=== PATIENT | male | born 1945 | race Caucasian/White ===

== ENCOUNTER → 2021-04-19 10:19 | Outpatient (BNVA) | payer OTHER, SELFPAY | PROVIDERS: Family Provider Internal Medicine; PCP Family Medicine; Visit Provider Internal Medicine | DX: L40.9 Psoriasis, unspecified (principal); M24.549 Contracture, unspecified hand; M10.9 Gout, unspecified; Z96.652 Presence of left artificial knee joint; Z11.59 Encounter for screening for other viral diseases; Z11.1 Encounter for screening for respiratory tuberculosis; Z79.52 Long term (current) use of systemic steroids | CPT/HCPCS: 99204 ==

== ENCOUNTER 2021-04-21 12:39 | Outpatient (CLI) | payer OTHER, SELFPAY ==
--- NOTE | 2021-04-21 12:59 | CT_ITS ---
WS: [id number] CT NECK WITHOUT CONTRAST. HISTORY: NECK MASS POSTERIOR/NECK LEFT ANTERIOR MANDIBLE TECHNIQUE: Contiguous 5 mm axial images are performed through the neck without intravenous contrast. Sagittal and coronal reformats are also submitted. All CT scans at [facility] use at least on e of these dose optimization techniques: automated exposure control; mA and/or kV adjustment per daniel ent size (includes targeted exams where dose is matched to clinical indication); or iterative reconst ruction. CONTRAST: CONTRAST: None DLP: 546.07 mGy.cm COMPARISON: None available. Nasopharynx, oropharynx, hypopharynx and larynx are unremarkable. No soft tissue masses or abnormal e nhancement. Torus tubarius and fossa of Rosenmuller and parapharyngeal fat are normal. There are a few scattered cervical chain lymph nodes but they are not enlarged. The soft tissues bila terally along the cervical chains and over the posterior upper cervical spine and occiput demonstrate mild edema and stranding. No discrete mass. Thyroid gland and salivary glands are normally enhancing with no masses. Moderate spondylitic changes in the cervical spine. No fracture. Large RIGHT proximal foraminal osteo phyte at C2-3 is encroaching and deforming the RIGHT lateral thecal sac. There are additional osteoph ytes throughout the cervical spine resulting in multifocal areas of central and foraminal stenosis. Visualized portions of the skull base demonstrate no abnormalities. Orbits and globes are within norm al limits. No soft tissue masses. Small amount mucoperiosteal thickening in the RIGHT sphenoid sinus. No air-fluid levels. Mucous reten tion cyst in the RIGHT maxillary sinus. Chronic changes at the lung apices. Prior CABG. CT/CT neck wo con [id number] IMPRESSION: 1. No soft tissue mass or adenopathy within the neck on this unenhanced study. 2. There is diffuse mild soft tissue edema of the neck and posterior upper tho rax. 3. Prior CABG.
== END 2021-04-21 12:40 | disposition home or self-care (01) ==
LOC: RAD 12:48
PROVIDERS: PCP Family Medicine; Visit Provider Family Medicine
DX: R22.1 Localized swelling, mass and lump, neck (principal); Z95.1 Presence of aortocoronary bypass graft
CPT/HCPCS: 70490

== ENCOUNTER → 2021-06-07 14:41 | Outpatient (BNVA) | payer OTHER, SELFPAY | PROVIDERS: PCP Family Medicine; Visit Provider Internal Medicine | DX: L40.9 Psoriasis, unspecified (principal); M24.549 Contracture, unspecified hand; R60.9 Edema, unspecified; N18.9 Chronic kidney disease, unspecified; Z90.49 Acquired absence of other specified parts of digestive tract | CPT/HCPCS: 99214 ==

== ENCOUNTER → 2021-06-20 14:18 | Outpatient (BNVA) | payer OTHER, SELFPAY | PROVIDERS: PCP Family Medicine; Visit Provider Internal Medicine Cardiovascular Disease | DX: I11.0 Hypertensive heart disease with heart failure (principal); Z79.01 Long term (current) use of anticoagulants; E78.5 Hyperlipidemia, unspecified; I25.10 Atherosclerotic heart disease of native coronary artery without angina pectoris; I35.0 Nonrheumatic aortic (valve) stenosis | CPT/HCPCS: 99214; 99215 ==

== ENCOUNTER 2021-06-22 12:54 | Outpatient (CLI) | payer OTHER, SELFPAY ==
--- NOTE | 2021-06-22 13:02 | US_ITS ---
WS: [id number] ULTRASOUND THYROID TECHNIQUE: Ultrasound of the thyroid. CLINICAL INFORMATION: MASS R POSTERIOR NECK CLINICALLY PALPABLE COMPARISON: None. FINDINGS: Thyroid: Right and left thyroid lobes are normal in size for patient age with normal echotexture. No thyroid nodules are present. Mixed echogenicity solid lesion in the RIGHT upper neck measuring 1.9 x 1.3 x 2.1 cm. Recommend furth er evaluation with contrast-enhanced neck CT. Right thyroid lobe: 2.7 cm x 1.4 cm x 1.5 cm Left thyroid lobe: 2.3 cm x 1.2 cm x 1.5 cm. Isthmus: 2.0 mm. Cervical lymphadenopathy: None. US/US thyroid [id number] IMPRESSION: 1. Mixed echogenicity solid lesion in the RIGHT upper neck measuring 1.9 x 1.3 x 2.1 cm. This is indeterminant and Recommend further evaluation with contrast -enhanced neck CT. 2. Normal thyroid for patient age. No thyroid nodules.
== END 2021-06-22 12:55 | disposition home or self-care (01) ==
LOC: RAD 12:55
PROVIDERS: PCP Family Medicine; Visit Provider Family Medicine
DX: Z01.89 Encounter for other specified special examinations (principal); R22.1 Localized swelling, mass and lump, neck
CPT/HCPCS: 76536

== ENCOUNTER 2021-07-06 13:13 | Outpatient (CLI) | payer OTHER, SELFPAY ==
--- NOTE | 2021-07-06 13:24 | USCV_ITS ---
Becky, Stephenson Age: 75 Gender: M : 1945 Exam Date: 07/06/2021 14:15 Ordering Phys: Gretchen Ridley MD Technologist: DAVID Exam Location: [facility] [place] Indication: S/P CABG 2015; PRE-immunotherapy workup. BP: / HR: 63 Rhythm: Sinus Technical Quality: Adequate MEASUREMENTS (Male / Female) Normal Values 2D ECHO LV Diastolic Diameter PLAX 4.5 cm 4.2 - 5.9 / 3.9 - 5.3 cm LV Systolic Diameter PLAX 2.7 cm IVS Diastolic Thickness 1.8 cm 0.6 - 1.0 / 0.6 - 0.9 cm IVS Systolic Thickness 1.9 cm LVPW Diastolic Thickness 1.7 cm 0.6 - 1.0 / 0.6 - 0.9 cm LVPW Systolic Thickness 2.0 cm LVOT Diameter 2.2 cm LV Ejection Fraction 2D Teich 71.9 % LV Ejection Fraction MOD 2C 61.8 % LV Ejection Fraction 2C AL 61.5 % LA Diameter 5.7 cm LA Width 3.8 cm LA Height 6.1 cm RA Width 4.1 cm RA Height 4.7 cm Aorta at Sinotubular Diameter 3.2 cm M-MODE Aortic Annulus Diameter 3.6 cm LA Ao Ratio MM 1.6 MV E Point Septal Separation 0.7 cm DOPPLER AV Peak Velocity 177.0 cm/s LVOT Peak Velocity 108.0 cm/s AV Area Cont Eq vti 2.3 cm squared AV Area Cont Eq pk 2.4 cm squared MV Peak Velocity 124.0 cm/s MV Area PHT 3.9 cm squared Mitral E to A Ratio 1.3 MV E' Velocity 69.5 cm/s Mitral E to MV E' Ratio 17.5 Mitral E to LV E' Lateral Ratio 16.0 Mitral E to LV E' Septal Ratio 19.6 PV Peak Velocity 98.0 cm/s FINDINGS Left Ventricle Normal left ventricular size, systolic function and wall thickness, with no regional wall motion abnormalities. Grade II/IV diastolic dysfunction, moderately elevated filling pressures. Left ventricular ejection fraction is estimated at 55 %. Right Ventricle Normal right ventricular size and systolic function. Right Atrium Mildly increased right atrial size. Left Atrium Mildly increased left atrial size. Mitral Valve Structurally normal mitral valve. Moderate mitral valve regurgitation. Aortic Valve Thickened aortic valve. Mild aortic valve calcification. Aortic valve sclerosis without stenosis or regurgitation. Tricuspid Valve Structurally normal tricuspid valve. Trace tricuspid valve regurgitation. Pulmonic Valve Structurally normal pulmonic valve without significant stenosis. There is no pulmonic regurgitation. Pericardium Normal pericardium without effusion. Aorta Normal ascending aorta dimension. CONCLUSIONS Normal left ventricular size, systolic function and wall thickness, with no regional wall motion abnormalities. Grade II/IV diastolic dysfunction, moderately elevated filling pressures. Left ventricular ejection fraction is estimated at 55 %. Mildly increased right atrial size. Mildly increased left atrial size. Structurally normal mitral valve. Moderate mitral valve regurgitation. Thickened aortic valve. Mild aortic valve calcification. Aortic valve sclerosis without stenosis or regurgitation. Dr. Chente Vaz MD (Electronically Signed) Final Date: 06 July 2021 17:50 S
== END 2021-07-06 13:14 | disposition home or self-care (01) ==
LOC: RAD 13:15
PROVIDERS: PCP Family Medicine; Visit Provider Family Medicine
DX: Z95.1 Presence of aortocoronary bypass graft (principal); I35.8 Other nonrheumatic aortic valve disorders
CPT/HCPCS: 93306

== ENCOUNTER 2021-07-15 07:52 | Day surgery (SDC) | payer OTHER, MEDICARE, SELFPAY ==
[2021-07-13 13:22] VITALS: BMI 33.5
[2021-07-15 08:07] VITALS: BP 150/80; PULSE 67; RESP 18; TEMP 36.1; O2SAT 97
[2021-07-15] MEDS: sodium chloride 0.9% 1,000 ML 30 ML IV (08:29)
--- NOTE | 2021-07-15 08:57 | P.HP_ITS ---
Same Day Surgery H&P Indication for Procedure/HPI DATE OF PROCEDURE: July 15, 2021 CHIEF COMPLAINT/INDICATIONFOR SURGICAL PROCEDURE: colonoscopy PREOP DIAGNOSIS: diagnostic PLANNED PROCEDURE: Operation Date: 07/15/21 09:00 Proposed Procedures p Colonoscopy 88855/[id number](Not Applicable) - Vadim Washington MD Medications/Allergies* Home Medications Medication Instructions Recorded Confirmed Type aspirin 81 mg tablet,delayed 81 mg PO DAILY 10/12/20 07/15/21 History release (Adult Low Dose Aspirin) cholecalciferol (vitamin D3) 25 75 mcg PO DAILY cap 10/12/20 07/15/21 History mcg (1,000 unit) capsule cyanocobalamin (vitamin B-12) 1,000 mcg PO DAILY 10/12/20 07/15/21 History 1,000 mcg capsule pantoprazole 40 mg tablet,delayed 40 mg PO DAILY 10/12/20 07/15/21 History release alogliptin 6.25 mg tablet 6.25 mg PO DAILY 04/19/21 07/15/21 History capsaicin 0.075 % topical cream 1 applic TOPICAL PRN PRN 04/19/21 07/15/21 History carvedilol 25 mg tablet 12.5 mg PO BID tab 04/19/21 07/15/21 History clobetasol 0.05 % topical spray 1 applic TOPICAL PRN PRN 04/19/21 07/15/21 History (Clobex) diclofenac sodium 1 % topical gel 2 g TOPICAL PRN PRN 04/19/21 07/15/21 History (Arthritis Pain (diclofenac)) insulin NPH isoph U-100 human 100 60 unit SUBCUT QAM ml 04/19/21 07/15/21 History unit/mL (3 mL) subcutaneous pen (Novolin N Flexpen) vit A-ergocalciferol(D2)-vit E 1 applic TOPICAL PRN 04/19/21 07/15/21 History topical cream torsemide 20 mg tablet 40 mg PO DAILY tab 06/07/21 07/15/21 History allopurinol 100 mg tablet 150 mg PO DAILY tab 06/17/21 07/15/21 History atorvastatin 40 mg tablet (Lipitor) 40 mg PO DAILY tab 06/17/21 07/15/21 History ferrous gluconate 324 mg (37.5 mg 324 mg PO DAILY 06/17/21 07/15/21 History iron) tablet omega-3 fatty acids 1,000 mg 1,000 mg PO DAILY 06/17/21 07/15/21 History capsule (Fish Oil Concentrate) Allergies/Adverse Reactions Allergy/AdvReac Type Severity Reaction Status Date / Time sulfamethoxazole Allergy Mild Rash Verified 07/15/21 08:04 [From Bactrim] trimethoprim [From Bactrim] Allergy Mild Rash Verified 07/15/21 08:04 niacin Allergy Unknown Verified 07/15/21 08:04 Current Medications: Generic Name Dose Route Start Last Admin Trade Name Toya PRN Reason Stop Dose Admin Sodium Chloride 1,000 mls @ 30 mls/hr 07/15/21 08:00 07/15/21 08:29 Sodium Chloride 0.9% IV 07/16/21 07:59 30 mls/hr .Q24H MANI Administration Pertinent History/Comorbid Conditions* Medical History (Updated 06/20/21 @ 15:17 by Markell Matthews MD) Aortic cusp regurgitation Aortic regurgitation CAD (coronary artery disease) CKD (chronic kidney disease) stage 3, GFR 30-59 ml/min Controlled diabetes mellitus with diabetic nephropathy Diverticulosis Gout, unspecified Hyperlipidemia Hypertension Male circumcision Psoriasis Surgical History (Updated 06/20/21 @ 10:55 by Vadim Washington MD) History of back surgery History of bilateral knee replacement History of colonoscopy History of partial colectomy History of total left knee replacement had a partial prior to total Hx of CABG Hx of cholecystectomy Hx of rotator cuff surgery Right Family History (Updated 06/17/21 @ 14:51 by Michelle Asif RN) Diabetes Grandmother Mother Heart attack Father Hypertension Grandmother Mother Stroke Grandmother Denies family history of Rheumatoid arthritis Lupus Clotting disorder Hyperlipidemia Anesthesia complication Bleeding disorder Cancer Social History Smoking and tobacco status: never smoked Alcohol intake: never History of recent travel: No Pertinent Exam Findings alert, oriented x 3 and regular rate & rhythm Recommendations Surgery/Procedure today Coding Level of Care Code Acute [employer] for Parvez Aggarwal
--- NOTE | 2021-07-15 09:05 | P.ANESASSM_ITS ---
Pre-Anesthetic Assessment Height/Weight: Height 1.88 m Weight 118.388 kg Temp Pulse Resp BP Pulse Ox 97.0 F L 67 18 150/80 97 07/15/21 08:07 07/15/21 08:07 07/15/21 08:07 07/15/21 08:07 07/15/21 08:07 Preop Diagnosis: diagnostic Operation Date: 07/15/21 09:00 Proposed Procedures p Colonoscopy 25711/k63.5(Not Applicable) - Vadim Washington MD Familial anesthetic complications: none Was Beta Fatoumata taken within 24 hours: N/A Was Clonidine taken within 24 hours: N/A Last intake: Intake Last Liquid Date 07/14/21 Last Liquid Time 21:00 Last Solid Date 07/13/21 Last Solid Time 20:00 Social No alcohol and No tobacco Exam alert and oriented x 3 Airway Submandibular: within normal limits Cervical ROM: within normal limits Mallampati: Class II Dentition: partials History/ROS No significant history except as noted Pulmonary None reported CV/HEM Coronary Artery Disease, Hypertension and Murmur None reported Hepatic None reported GI None reported Metabolic Hyperlipidemia [facility] [place] None reported Neuropsych None reported Anesthetic Plan ASA status: 3 Anesthesia: Anesthesia Evaluation and MAC Risk of > 500 ml blood loss (7ml/kg in children): No Medications/Allergies Home Medications Medication Instructions Recorded Confirmed Last Taken Type aspirin 81 mg tablet,delayed 81 mg PO DAILY 10/12/20 07/15/21 07/14/21 History release (Adult Low Dose Aspirin) cholecalciferol (vitamin D3) 25 75 mcg PO DAILY cap 10/12/20 07/15/21 07/14/21 History mcg (1,000 unit) capsule cyanocobalamin (vitamin B-12) 1,000 mcg PO DAILY 10/12/20 07/15/21 07/14/21 History 1,000 mcg capsule pantoprazole 40 mg tablet,delayed 40 mg PO DAILY 10/12/20 07/15/21 07/14/21 History release alogliptin 6.25 mg tablet 6.25 mg PO DAILY 04/19/21 07/15/21 07/14/21 History capsaicin 0.075 % topical cream 1 applic TOPICAL PRN PRN 04/19/21 07/15/21 07/14/21 History carvedilol 25 mg tablet 12.5 mg PO BID tab 04/19/21 07/15/21 07/14/21 History clobetasol 0.05 % topical spray 1 applic TOPICAL PRN PRN 04/19/21 07/15/21 07/14/21 History (Clobex) diclofenac sodium 1 % topical gel 2 g TOPICAL PRN PRN 04/19/21 07/15/21 07/14/21 History (Arthritis Pain (diclofenac)) insulin NPH isoph U-100 human 100 60 unit SUBCUT QAM ml 04/19/21 07/15/21 07/14/21 History unit/mL (3 mL) subcutaneous pen (Novolin N Flexpen) prednisone 5 mg tablet See Rx Instructions PO DAILY #45 04/19/21 07/15/21 07/14/21 Rx tab vit A-ergocalciferol(D2)-vit E 1 applic TOPICAL PRN 04/19/21 07/15/21 07/14/21 History topical cream torsemide 20 mg tablet 40 mg PO DAILY tab 06/07/21 07/15/21 07/14/21 History allopurinol 100 mg tablet 150 mg PO DAILY tab 06/17/21 07/15/21 07/14/21 History atorvastatin 40 mg tablet (Lipitor) 40 mg PO DAILY tab 06/17/21 07/15/21 07/14/21 History ferrous gluconate 324 mg (37.5 mg 324 mg PO DAILY 06/17/21 07/15/21 07/14/21 History iron) tablet omega-3 fatty acids 1,000 mg 1,000 mg PO DAILY 06/17/21 07/15/21 07/14/21 History capsule (Fish Oil Concentrate) amlodipine 10 mg tablet 10 mg PO DAILY 90 Days #90 tab 06/20/21 07/15/21 07/15/21 Rx Allergies Allergy/AdvReac Type Severity Reaction Status Date / Time sulfamethoxazole Allergy Mild Rash Verified 07/15/21 08:04 [From Bactrim] trimethoprim [From Bactrim] Allergy Mild Rash Verified 07/15/21 08:04 niacin Allergy Unknown Verified 07/15/21 08:04 Current Medications Generic Name Dose Route Start Last Admin Trade Name Freq PRN Reason Stop Dose Admin Sodium Chloride 1,000 mls @ 30 mls/hr 07/15/21 08:00 07/15/21 08:29 Sodium Chloride 0.9% IV 07/16/21 07:59 30 mls/hr .Q24H MANI Administration PFSH Anesthesia Medical History Aortic cusp regurgitation Aortic regurgitation CAD (coronary artery disease) CKD (chronic kidney disease) stage 3, GFR 30-59 ml/min Controlled diabetes mellitus with diabetic nephropathy Diverticulosis Gout, unspecified Hyperlipidemia Hypertension Male circumcision Psoriasis Surgical History History of back surgery History of bilateral knee replacement History of colonoscopy History of partial colectomy History of total left knee replacement had a partial prior to total Hx of CABG Hx of cholecystectomy Hx of rotator cuff surgery Right Family History Grandmother Diabetes Stroke Hypertension Mother Diabetes Hypertension Father Heart attack Denies family history of Rheumatoid arthritis Lupus Clotting disorder Hyperlipidemia Anesthesia complication Bleeding disorder Cancer Social History Smoking and tobacco status: never smoked Alcohol intake: never History of recent travel: No Data Anesthesia Cardiac Studies: Echocardiogram 07/06/21
[2021-07-15 09:39] VITALS: BP 125/66; PULSE 60; RESP 18; TEMP 36.1; O2SAT 96
--- NOTE | 2021-07-15 09:39 | ANE.PACU2 ---
Inpatient post-anesthesia follow up: Airway intact: Yes Vital signs: Temperature 97.0 F Pulse Rate 67 Respiratory Rate 18 Blood Pressure 150/80 Pulse Oximetry 97 Oxygen Delivery Me thod Room Air Oxygen Flow Rate Fraction of Inspir ed Oxygen Hydration adequate: Yes Nausea and vomiting: No Pain level: 1 Mental status: Baseline
[2021-07-15 09:49] VITALS: BP 153/76; PULSE 68; RESP 18; O2SAT 95
== END 2021-07-15 10:21 | disposition home or self-care (01) ==
PROVIDERS: PCP Family Medicine; Visit Provider Surgery
PROC: 0DJD8ZZ Inspection of Lower Intestinal Tract, Via Natural or Artificial Opening Endoscopic (ICD-10-PCS; CPT 45378; principal; 2021-07-15 09:00)
DX: K63.5 Polyp of colon (principal); I25.10 Atherosclerotic heart disease of native coronary artery without angina pectoris; E11.40 Type 2 diabetes mellitus with diabetic neuropathy, unspecified; E78.5 Hyperlipidemia, unspecified; E11.22 Type 2 diabetes mellitus with diabetic chronic kidney disease; I12.9 Hypertensive chronic kidney disease with stage 1 through stage 4 chronic kidney disease, or unspecified chronic kidney disease; N18.30 Chronic kidney disease, stage 3 unspecified; Z95.1 Presence of aortocoronary bypass graft; K57.30 Diverticulosis of large intestine without perforation or abscess without bleeding; K64.8 Other hemorrhoids; D12.2 Benign neoplasm of ascending colon; I10 Essential (primary) hypertension; Z79.52 Long term (current) use of systemic steroids; Z79.4 Long term (current) use of insulin
CPT/HCPCS: 45380; 88305; J2704; J7030

== ENCOUNTER 2021-08-12 11:01 | Outpatient (CLI) | payer OTHER, SELFPAY ==
--- NOTE | 2021-08-12 11:09 | CT_ITS ---
WS: [id number] CT NECK TECHNIQUE: Noncontrast CT of the neck with coronal and sagittal reformatted images. CLINICAL INFORMATION: NECK MASS COMPARISON: CT neck April 21, 2021 DLP: 356.[address] scans at [facility] use at least one of these dose optimization techniques: automated e xposure control; mA and/or kV adjustment per patient size (includes targeted exams where dose is matc hed to clinical indication); or iterative reconstruction. FINDINGS: Area of interest marked with a BB marker. Area of palpable concern RIGHT retromastoid in the RIGHT suboccipital region. Induration in the under lying subcutaneous fat with ovoid lipoma measuring approximately 1.8 x 1.4 x 2.5 CM. Small amount of surrounding induration and inflammation. No solid soft tissue components. No other underlying abnorma lities in this region. Incidental sebaceous cysts in the LEFT suboccipital soft tissues. Mastoid air cells are well aerated. Paranasal sinuses are well aerated. Small retention cysts in the RIGHT maxillary sinuses. Retention cyst RIGHT sphenoid sinus. Partially visualized intracanal contents are normal for age. Cavernous car otid calcification. Normal posterior nasopharynx. Normal parapharyngeal fat. Normal palatine tonsils. No evidence of supr aglottic or glottic mass. Normal subglottic airway. Normal epiglottis and piriform sinuses. Normal th yroid tissue. Aortic calcification. Prior sternotomy. Submandibular glands are normal. Parotid glands are normal. No cervical lymphadenopathy. Moderate spo ndylitic changes cervical spine. CT/CT neck wo con [id number] IMPRESSION: 1. Deep to the palpable marker in the RIGHT suboccipital neck is a fatty atten uation lesion small amount of associated induration and inflammation. This is c ompatible with lipoma measuring 1.8 x 1.4 x 2.5 CM. No other underlying lesions . This appears slightly more prominent compared to April 21, 2021 and recomme nd 3-6 month contrast-enhanced neck CT interval follow-up to exclude liposarcom a although uncommon. 2. Incidental sebaceous cyst in the LEFT suboccipital subcutaneous soft tissue s. 3. Normal salivary glands. 4. No cervical lymphadenopathy. 5. Retention cyst RIGHT maxillary sinus and RIGHT sphenoid sinus.
--- NOTE | 2021-08-12 11:09 | CT_ITS ---
WS: [id number] CT CHEST TECHNIQUE: Noncontrast CT of the chest with coronal and sagittal reformatted images. CLINICAL INFORMATION: PULMONARY NODULES FOLLOW UP COMPARISON: CT December 31, 2017 and DLP: 829.[address] scans at [facility] use at least one of these dose optimization techniques: automated e xposure control; mA and/or kV adjustment per patient size (includes targeted exams where dose is matc hed to clinical indication); or iterative reconstruction. FINDINGS: A few tiny subpleural pulmonary nodules measuring 1 to 2 mm in the RIGHT middle lobe, RIGHT lower lob e, and LEFT lower lobe. No suspicious pulmonary parenchymal abnormalities. Both lungs are well aerated. No acute pulmonary infiltrates. No focal consolidation or pleural fluid. Mild chronic emphysematous changes. Mild aortic calcification. Normal caliber thoracic aorta. [place] calcification. Normal thyroid gland. No mediastinal or hilar lymphadenopathy. No axillary lymphade nopathy. Cholecystectomy clips. Normal RIGHT adrenal gland. Small LEFT adrenal adenoma measuring 15 mm. Normal GE junction. Fatty atrophy of the pancreas. Splenic artery calcification. Ankylosis thoracic spine. Prior sternotomy with CABG. CT/CT chest wo con [id number] IMPRESSION: 1. A few tiny subpleural pulmonary nodules measuring 1 to 2 mm in the RIGHT mi ddle lobe, RIGHT lower lobe, and LEFT lower lobe. These are better seen today b ut appear stable from 2018 2. No suspicious pulmonary parenchymal abnormalities. 3. No mediastinal or hilar lymphadenopathy. 4. Prior cholecystectomy. 5. Sternotomy with CABG.
== END 2021-08-12 11:02 | disposition home or self-care (01) ==
PROVIDERS: PCP Family Medicine; Visit Provider Family Medicine
DX: Z01.89 Encounter for other specified special examinations (principal); R91.8 Other nonspecific abnormal finding of lung field
CPT/HCPCS: 70490; 71250

== ENCOUNTER 2021-08-16 09:45 | Outpatient (CLI) | payer OTHER, SELFPAY ==
--- NOTE | 2021-08-16 09:58 | CT_ITS ---
WS: [id number] CT ABDOMEN AND PELVIS NONCONTRAST HISTORY: LIVER LESION IDENTIFIED ON CT SCAN IN 2018/ETIOLOGY UNCLEAR TECHNIQUE: Imaging performed through the abdomen and pelvis. Coronal and sagittal reformats are submi tted. All CT scans at [facility] use at least one of these dose optimization techniques: auto mated exposure control; mA and/or kV adjustment per patient size (includes targeted exams where dose is matched to clinical indication); or iterative reconstruction. DLP: 1220.63 mGy.cm COMPARISON: 11/06/2016 CT, chest CT 12/31/2017 Lower thorax: Lung bases are clear. Visualized heart is normal. Small hiatal hernia. Liver: Liver is normal size. There are a few scattered granulomata. No masses are identified. No sign ificant atrophy or enlargement. No bile duct dilatation. Gallbladder: Prior cholecystectomy. Pancreas: Normal size and attenuation. Normal pancreatic duct. No pancreatitis or mass. Spleen: 12.8 cm in length. Spleen is top normal size, similar to the prior study from 2017. Adrenal glands: Normal. No mass. Right kidney: Normal size kidney. Increased amount of perinephric fat surrounding the kidney. No obst ruction. Left kidney: Normal size kidney. Increased amount of perinephric fat surrounding the kidney. No obstr uction. Aorta: Mild atherosclerosis abdominal aorta with no aneurysm. No free fluid, intraperitoneal air or significant lymphadenopathy. GI tract: Stomach is negative. No small bowel obstruction. Prior appendectomy. No colon obstruction. There are numerous diverticula with mucosal thickening involving the sigmoid colon. No evidence for a cute diverticulitis or obstruction. Abdominal wall: Negative. No hernia. Pelvis: Urinary bladder is well distended. There is mild diffuse bladder wall thickening. Slightly as ymmetric to the RIGHT measuring up to 7 mm. Similar appearance noted on a prior CT from 2017. No free fluid in the pelvis. Patent LEFT inguinal canal containing fat. Osseous structures: Advanced spondylitic changes in the lumbar spine. Subchondral cystic changes invo lving the femoral heads. Fusion across the SI joints, LEFT greater than RIGHT. CT/CT abdomen pelvis wo con [id number] IMPRESSION: 1. No liver abnormality noted on this unenhanced study. No prior studies for c omparison which described an abnormality within the liver. 2. Prior cholecystectomy and appendectomy. 3. Moderate sigmoid diverticulosis without acute diverticulitis. 4. Diffuse but mildly asymmetric bladder wall thickening. Similar to the 2017.
== END 2021-08-16 09:46 | disposition home or self-care (01) ==
LOC: RAD 09:47
PROVIDERS: PCP Family Medicine; Visit Provider Family Medicine
DX: Z01.89 Encounter for other specified special examinations (principal)
CPT/HCPCS: 74176

== ENCOUNTER 2021-09-08 14:25 | Emergency (ER) | payer OTHER, MEDICARE, SELFPAY ==
[2021-09-08 14:27] VITALS: BP 143/66; PULSE 73; RESP 16; O2SAT 96; BMI 33.3
--- NOTE | 2021-09-08 15:34 | ECG_ITS ---
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 Measurements Intervals [place] Rate: 70 P: -60 ID: [id number] QRS: -11 QRSD: 113 T: 65 QT: 439 QTc: 475 Interpretive Statements ECTOPIC ATRIAL RHYTHM WITH FIRST DEGREE AV BLOCK POSSIBLE INFERIOR MYOCARDIAL INFARCTION , PROBABLY OLD [30 ms Q WAVE IN II/aVF] Compared to ECG 11/08/2016 18:54:06 Ectopic atrial rhythm now present First degree AV block now present Myocardial infarct finding now present Sinus tachycardia no longer present Electronically Signed On 09-09-2021 17:01:23 CDT by Jorge L Velásquez M.D. [email or web address]
--- NOTE | 2021-09-08 15:49 | XRR_ITS ---
PROCEDURE INFORMATION: Exam: XR Chest Exam date and time: 09/08/2021 4:04 PM Age: 75 years old Clinical indication: Cough and dyspnea; Additional info: Dyspnea/cough TECHNIQUE: Imaging protocol: XR of the chest. Views: 1 view. COMPARISON: CT chest [facility] [id number] 08/12/2021 11:55 AM FINDINGS: Lungs: Unremarkable. No consolidation. Pleural spaces: No pleural effusion. No pneumothorax. Heart/Mediastinum: Unremarkable. No cardiomegaly. Bones/joints: Sternotomy wires noted. Visualized osseous structures are intact. XR/XR chest 1V portable [id number] IMPRESSION: No acute findings.
--- NOTE | 2021-09-08 15:50 | ED_ITS ---
HPI - Weakness General: Chief complaint: Weakness Stated complaint: general weakness Time Seen by Provider: 09/08/21 14:43 Source: patient Mode of arrival: ambulatory Limitations: no limitations History of Present Illness: 75-year-old male presents emergency room complaining of generalized weakness cough for the last 2 days. 4 days ago was exposed somebody had COVID. He has not had any body aches fever or diarrhea. No dysuria urgency or frequency no recent change in medications he is on several different medications these were reviewed. MD Complaint: generalized weakness Onset (ago): hour(s) Duration: constant Location: generalized Migration: none Severity: mild Quality: tingling and numbness Relieving factors: none Exacerbating factors: none Associated symptoms: Denies chest pain, chills, confusion, melena, decreased appetite, diaphoresis, dysuria, easy bruising, fever(s), headache(s), myalgias, nausea, short of breath, syncope or vomiting Review of Systems Const: Denies: fever(s), chills or diaphoresis ENMT: Denies: throat pain, ear or mastoid pain, nasal discharge or nasal congestion Card: Denies: chest pain or syncope Resp: Reports: dyspnea and non-productive cough; Denies: productive cough GI: Denies: abdominal pain, nausea, vomiting or melena : Denies: dysuria Skin/Breast: Denies: rash or pruritus Neuro: Denies: headache(s) or confusion Ben/Lymph: Denies: easy bruising PFSH ED PFSH: Medical History Aortic cusp regurgitation Aortic regurgitation CAD (coronary artery disease) CKD (chronic kidney disease) stage 3, GFR 30-59 ml/min Controlled diabetes mellitus with diabetic nephropathy Diverticulosis Gout, unspecified Hyperlipidemia Hypertension Male circumcision Psoriasis Surgical History History of back surgery History of bilateral knee replacement History of colonoscopy (07/15/21) History of partial colectomy History of total left knee replacement had a partial prior to total Hx of CABG Hx of cholecystectomy Hx of rotator cuff surgery Right Family History Grandmother Diabetes Stroke Hypertension Mother Diabetes Hypertension Father Heart attack Denies family history of Rheumatoid arthritis Lupus Clotting disorder Hyperlipidemia Anesthesia complication Bleeding disorder Cancer Social History Smoking and tobacco status: never smoked Alcohol intake: never History of recent travel: No Physical Exam Const: GENERAL APPEARANCE: cooperative and comfortable ORIENTATION/CONSCIOUSNESS: Yes awake, Yes oriented to person, Yes oriented to place and Yes oriented to time HENMT: COMMON NORMALS: normocephalic, atraumatic and hearing grossly normal bilaterally HEAD & SCALP: normocephalic and atraumatic Neck/C-Spine: COMMON NORMALS: no JVD Resp: COMMON NORMALS: normal respiratory effort, No retractions, No use of accessory muscles and clear to auscultation bilaterally AUSCULTATION: clear to auscultation bilaterally Cardio: COMMON NORMALS: no JVD, regular rate, regular rhythm and No murmurs present (Cardio) RATE: regular rate RHYTHM: regular rhythm GI: COMMON NORMALS: Soft to palpation and No hepatosplenomegaly present AUSCULTATION: Yes normoactive bowel sounds PALPATION: Yes Soft to palpation, No Tenderness to palpation present (GI), No Guarding due to palpation present (GI) and Yes No hepatosplenomegaly present Extremity: COMMON NORMALS: normal to inspection, capillary refill normal, no clubbing, cyanosis or edema, no calf tenderness and no pedal edema Neuro: SENSORIUM/ORIENTATION: Yes oriented to person, Yes oriented to place and Yes oriented to time Skin: COMMON NORMALS: no rashes or lesions noted GENERAL SKIN EXAM: no rashes or lesions noted Course Vital Signs: Vital signs: Vital Signs Pulse Rate 72 09/08/21 18:47 Respiratory Rate 17 09/08/21 18:47 Blood Pressure 143/66 09/08/21 14:27 Pulse Oximetry 97 09/08/21 18:47 MDM - Weakness Medical Decision Making Patient has chronic kidney disease. Reviewed labs and imaging at this point he can be discharged home follow-up with his primary care doctor return if is worsening problems. He will need follow-up repeat lab work within the next week. Lab Data : 09/08/21 15:55 09/08/21 16:35 Radiology Impressions Chest X-Ray 09/08/21 15:49 IMPRESSION: No acute findings. Laboratory Results WBC 4.7 10^3/uL (4.0-10.0) 09/08/21 15:55 RBC 3.77 10^6/uL (4.1-5.3) L 09/08/21 15:55 Hgb 11.6 g/dL (11.7-16.6) L 09/08/21 15:55 Hct 34.2 % (42.0-52.0) L 09/08/21 15:55 MCV 90.7 fl (80-94) 09/08/21 15:55 MCH 30.8 pg (28.0-34.0) 09/08/21 15:55 MCHC 33.9 g/dL (30.0-36.0) 09/08/21 15:55 RDW 14.9 % (12.1-15.1) 09/08/21 15:55 Plt Count 131 10^3/cmm (130-400) 09/08/21 15:55 MPV 10.3 fL (7.4-10.4) 09/08/21 15:55 Neut % (Auto) 51.6 % 09/08/21 15:55 Lymph % (Auto) 27.5 % 09/08/21 15:55 [place] % (Auto) 17.5 % 09/08/21 15:55 Eos % (Auto) 1.9 % 09/08/21 15:55 Baso % (Auto) 0.9 % 09/08/21 15:55 Neut # (Auto) 2.42 10^3/uL (1.8-7.7) 09/08/21 15:55 Lymph # (Auto) 1.3 10^3/uL (0.8-4.8) 09/08/21 15:55 [place] # (Auto) 0.8 10^3/uL (0.2-0.9) 09/08/21 15:55 Eos # (Auto) 0.1 10^3/uL (0.0-0.8) 09/08/21 15:55 Baso # (Auto) 0.0 10^3/uL (0.0-0.1) 09/08/21 15:55 Nucleated RBC % (auto) 0 % 09/08/21 15:55 Nucleated RBCs # 0.0 /100WBC 09/08/21 15:55 Sodium 134 mmol/L (136-145) L 09/08/21 16:35 Potassium 3.7 mmol/L (3.5-5.1) 09/08/21 16:35 Chloride 95 mmol/L (98-107) L 09/08/21 16:35 Carbon Dioxide 24 mmol/L (22-29) 09/08/21 16:35 Anion Gap 18.7 (5-19) 09/08/21 16:35 BUN 36 mg/dL (8-23) H 09/08/21 16:35 Creatinine 3.0 mg/dL (0.7-1.2) H 09/08/21 16:35 GFR Calculation Not Reportable 09/08/21 16:35 Glucose 83 mg/dL (65-115) 09/08/21 16:35 Calculated Osmolality 285 mOsm/kg (285-295) 09/08/21 16:35 Calcium 8.2 mg/dL (8.5-10.5) L 09/08/21 16:35 Total Bilirubin 1.1 mg/dL (0.15-1.2) 09/08/21 16:35 AST 50 U/L (0-40) H 09/08/21 16:35 ALT 31 U/L (0-41) 09/08/21 16:35 Alkaline Phosphatase 125 IU/L (40-130) 09/08/21 16:35 Total Protein 7.4 g/dL (6.6-8.7) 09/08/21 16:35 Albumin 3.8 g/dL (3.5-5.2) 09/08/21 16:35 Globulin 3.6 g/dL (1.3-4.6) 09/08/21 16:35 Urine Color Yellow (Yellow) 09/08/21 17:48 Urine Appearance Hazy (CLEAR) A 09/08/21 17:48 Urine pH 7 (5-7) 09/08/21 17:48 Ur Specific [place] 1.005 (1.005-1.030) 09/08/21 17:48 Urine Protein Trace (Negative) 09/08/21 17:48 Urine Glucose (UA) Norm (Normal) 09/08/21 17:48 Urine Ketones Negative (Negative) 09/08/21 17:48 Urine Blood Trace (Negative) H 09/08/21 17:48 Urine Nitrate Negative (Negative) 09/08/21 17:48 Urine Bilirubin Neg (Negative) 09/08/21 17:48 Urine Urobilinogen Norm mg/dL (Negative) 09/08/21 17:48 Ur Leukocyte Esterase 1+ (Negative) H 09/08/21 17:48 Urine RBC 0-4 /hpf (0-2) H 09/08/21 17:48 Urine WBC 40-55 /hpf (0-5) H 09/08/21 17:48 Ur Squamous Epith Cells 0-4 /hpf (0-5) H 09/08/21 17:48 Amorphous Sediment Not Reportable 09/08/21 17:48 Urine Bacteria 4+ /hpf (NONE) H 09/08/21 17:48 Coronavirus 229E (PCR) Not detected (NOT DETECT) 09/08/21 16:18 SARS-CoV-2 (PCR) Detected (NOT DETECT) A 09/08/21 16:18 Discharge Plan Discharge Patient Disposition: Home Clinical Impression: Chronic kidney disease (CKD), Weakness Condition: Stable Prescriptions: No Action diclofenac sodium [Arthritis Pain (diclofenac)] 1 % gel 2 g topical PRN PRN (Reason: Pain) 0RF Rx Instructions: apply to single elbow, wrist or hand; for hand includes palm/fingers/back of hand capsaicin 0.075 % cream 1 applic topical PRN PRN (Reason: Pain) 0RF Rx Instructions: do not wash area for at least 30 min after application clobetasol [Clobex] 0.05 % spray,non-aerosol 1 applic topical PRN PRN (Reason: Skin Irritation) 0RF Rx Instructions: not to exceed 26 sprays per single application alogliptin 6.25 mg tablet 6.25 mg PO DAILY 0RF prednisone 5 mg tablet See Rx Instructions PO DAILY Qty: 45 0RF Rx Instructions: 15mg po qday x 5 days, then 10mg po qday x 5 days, then 5mg po qday. take in AM after food PO daily; aspirin [Adult Low Dose Aspirin] 81 mg tablet,delayed release (DR/EC) 81 mg PO DAILY 0RF cholecalciferol (vitamin D3) 25 mcg (1,000 unit) capsule 75 mcg PO DAILY 0RF cyanocobalamin (vitamin B-12) 1,000 mcg capsule 1,000 mcg PO DAILY 0RF pantoprazole 40 mg tablet,delayed release (DR/EC) 40 mg PO DAILY 0RF carvedilol 25 mg tablet 12.5 mg PO BID 0RF Rx Instructions: must administer with a meal/food torsemide 20 mg tablet 40 mg PO DAILY 0RF allopurinol 100 mg tablet 150 mg PO DAILY 0RF atorvastatin [Lipitor] 40 mg tablet 40 mg PO DAILY 0RF ferrous gluconate 324 mg (37.5 mg iron) tablet 324 mg PO DAILY 0RF amlodipine 10 mg tablet 10 mg PO DAILY 90 Days Qty: 90 3RF Novolog Mix 70-30 U-100 Insuln 100 unit/mL (70-30) Solution See Rx Instructions .ROUTE .COMPLEX 0RF Rx Instructions: SLIDING SCALE Leonidas 3 Fish Oil 684-1,200 mg Capsule,Delayed Release(Dr/Ec) 1 cap PO DAILY 0RF glucose 4 gram Tablet,Chewable 4 g PO Q15M PRN (Reason: LOW BLOOD SUGAR) 0RF Rx Instructions: until symptoms of low blood sugar are controlled fluticasone propion-salmeterol 100-50 mcg/dose Blister With Device 1 inh INHALATION BID 0RF albuterol sulfate 90 mcg/actuation Hfa Aerosol Inhaler 2 puff INHALATION QID PRN (Reason: Shortness Of Breath) 0RF Discharge Orders: Discharge ED (Routine); Ordered 09/08/21 Ordered By: El Watkins Referrals: Gretchen Ridley MD [Primary Care Provider] - Discharge Diet: Usual diet Discharge Activity: Resume usual activity Patient Instructions: Opioid Safety Activity Restrictions/Additional Instructions: Follow-up with your primary care doctor within the next 4 to 5 days to recheck your kidney function. Continue previously prescribed medications. Your chest x-ray was normal and the final COVID result be called to you when it is available. Coding Level of Care Code ED Government Affairs Researcher for Parvez Fwd Exam Comprehensive
[2021-09-08 16:17] LABS: Basophils % 0.9 %; Eosinophils # 0.1 10^3/uL (0.0-0.8); Eosinophils % 1.9 %; Hematocrit 34.2 % (42.0-52.0); Hemoglobin 11.6 g/dL (11.7-16.6); Lymphocytes # 1.3 10^3/uL (0.8-4.8); Lymphocytes % 27.5 %; Mean Corpuscular HGB Conc 33.9 g/dL (30.0-36.0); Mean Corpuscular Hemoglobin 30.8 pg (28.0-34.0); Mean Corpuscular Volume 90.7 fl (80-94); Mean Platelet Volume 10.3 fL (7.4-10.4); Monocytes # 0.8 10^3/uL (0.2-0.9); Monocytes % 17.5 %; Neutrophils # 2.42 10^3/uL (1.8-7.7); Neutrophils % 51.6 %; Nucleated Red Blood Cells % 0 %; Platelet Count 131 10^3/cmm (130-400); Red Blood Count 3.77 10^6/uL (4.1-5.3); Red Cell Distribution Width 14.9 % (12.1-15.1); White Blood Count 4.7 10^3/uL (4.0-10.0)
[2021-09-08 17:23] LABS: Alanine Aminotransferase 31 U/L (0-41); Albumin Level 3.8 g/dL (3.5-5.2); Alkaline Phosphatase 125 IU/L (40-130); Anion Gap 18.7 (5-19); Aspartate Amino Transferase 50 U/L (0-40); Blood Urea Nitrogen 36 mg/dL (8-23); Calcium 8.2 mg/dL (8.5-10.5); Carbon Dioxide 24 mmol/L (22-29); Chloride 95 mmol/L (98-107); Globulin 3.6 g/dL (1.3-4.6); Glucose 83 mg/dL (65-115); Osmolality Calculated 285 mOsm/kg (285-295); Potassium 3.7 mmol/L (3.5-5.1); Sodium 134 mmol/L (136-145); Total Bilirubin 1.1 mg/dL (0.15-1.2); Total Protein 7.4 g/dL (6.6-8.7)
[2021-09-08 18:06] LABS: Add Urine Microscopic? YES; Bilirubin Urine Neg (Negative); Blood Urine Trace (Negative); Glucose Urine UA Norm (Normal); Ketones Urine Negative (Negative); Leukocyte Esterase Urine 1+ (Negative); Nitrate Urine Negative (Negative); Protein Urine Trace (Negative); Specific Gravity, Urine 1.005 (1.005-1.030); Urine Appearance Hazy (CLEAR); Urine Color Yellow (Yellow); Urobilinogen Urine Norm (Negative); pH Urine 7 (5-7)
[2021-09-08 18:07] LABS: Bacteria Urine 4+ /hpf; RBC Urine 0-4 /hpf (0-2); Squamous Epithelial Cell Urine 0-4 /hpf (0-5); WBC Urine 40-55 /hpf (0-5)
[2021-09-08 18:08] LABS: Add Urine Culture? Yes
[2021-09-08 18:47] VITALS: PULSE 72; RESP 17; O2SAT 97
[2021-09-08 18:52] LABS: Adenovirus Not Detected (NOT DETECT); Chlamydia Pneumoniae Not Detected (NOT DETECT); Coronavirus 229E,HKU1,NL63,OC4 Not Detected (NOT DETECT); Human Metapneumovirus Not Detected (NOT DETECT); Human Rhinovirus/Enterovirus Not Detected (NOT DETECT); Influenza A Not Detected (NOT DETECT); Influenza A H1 Not Detected (NOT DETECT); Influenza A H1-2009 Not Detected (NOT DETECT); Influenza A H3 Not Detected (NOT DETECT); Influenza B Not Detected (NOT DETECT); Mycoplasma Pneumoniae Not Detected (NOT DETECT); Parainfluenza Virus Type 1 Not Detected (NOT DETECT); Parainfluenza Virus Type 2 Not Detected (NOT DETECT); Parainfluenza Virus Type 3 Not Detected (NOT DETECT); Parainfluenza Virus Type 4 Not Detected (NOT DETECT); Respiratory Syncytial Virus A Not Detected (NOT DETECT); Respiratory Syncytial Virus B Not Detected (NOT DETECT); SARS-COV-2 Detected (NOT DETECT)
--- NOTE | 2021-09-09 09:29 | PC.NURSE ---
Pt notified of positive covid result. Logged by this RN in discrepancy book.
== END 2021-09-08 18:32 | disposition home or self-care (01) ==
PROVIDERS: Emergency Provider Family Medicine; PCP Family Medicine
DX: E11.22 Type 2 diabetes mellitus with diabetic chronic kidney disease (principal); I12.9 Hypertensive chronic kidney disease with stage 1 through stage 4 chronic kidney disease, or unspecified chronic kidney disease; N18.30 Chronic kidney disease, stage 3 unspecified; U07.1 COVID-19; R53.1 Weakness; Z79.4 Long term (current) use of insulin; Z20.822 Contact with and (suspected) exposure to COVID-19
CPT/HCPCS: 71045; 80053; 81001; 85025; 87077; 87086; 87186; 87635; 93005; 99284

== ENCOUNTER → 2021-09-26 14:06 | Outpatient (BNVA) | payer OTHER, MEDICARE, SELFPAY | PROVIDERS: PCP Family Medicine; Visit Provider Otolaryngology | DX: R22.1 Localized swelling, mass and lump, neck (principal) | CPT/HCPCS: 99204 ==

== ENCOUNTER 2021-10-13 05:58 | Day surgery (SDC) | payer OTHER, SELFPAY ==
[2021-10-12 11:27] VITALS: BMI 33.3
[2021-10-13 06:44] VITALS: BP 156/78; PULSE 74; RESP 18; TEMP 36.9; O2SAT 94
[2021-10-13] MEDS: sodium chloride 0.9% 1,000 ML 30 ML IV (07:19)
--- NOTE | 2021-10-13 07:25 | W.PM.OPSUD ---
Surgery/Procedure H&P Update DATE OF PROCEDURE: October 13, 2021 DATE H&P PERFORMED: 09/26/21 H&P UPDATE INFORMATION: I have reviewed H&P completed within last 30 days, I have examined patient prior to procedure and No changes to prior documentation CHANGES TO PREVIOUS DOCUMENTATION: No changes. PREOP DIAGNOSIS: Right suboccipital neck mass PRIMARY INDICATION FOR PROCEDURE: Right suboccipital neck mass PLANNED PROCEDURE: Operation Date: 10/13/21 07:25 Proposed Procedures p exision of right suboxibital neck mass with closer-patient choice to undergo procedure with general anesthesia with local. Tien Jones MD
[2021-10-13 07:26] LABS: Glucose Point of Care 241 mg/dL (70-110)
[2021-10-13] MEDS: ceFAZolin 2,000 MG in sodium chloride 0.9% (plus) 50 ML 100 MG IV (07:37)
--- NOTE | 2021-10-13 08:04 | SUR.OPER ---
0756 3.4ml 2% lidocaine injected into surgical site by dr anthony
--- NOTE | 2021-10-13 08:08 | ANES.PREANE2 ---
Pre-Anesthetic Assessment Height/Weight: Height 1.88 m Weight 117.934 kg Temp Pulse Resp BP Pulse Ox 98.5 F 74 18 156/78 94 10/13/21 06:44 10/13/21 06:44 10/13/21 06:44 10/13/21 06:44 10/13/21 06:44 Preop Diagnosis: Right suboccipital neck mass Operation Date: 10/13/21 07:25 Proposed Procedures p exision of right suboxibital neck mass with closer- uNder local with iv sedation 38127,R22.1(Not Applicable) - Tien Jones MD Familial anesthetic complications: none Was Beta Fatoumata taken within 24 hours: Yes Was Clonidine taken within 24 hours: N/A Last intake: Intake Last Liquid Date 10/12/21 Last Liquid Time 21:30 Last Solid Date 10/12/21 Last Solid Time 21: Social No alcohol and No tobacco (h/o smoking) Exam alert, oriented x 3 and regular rate & rhythm Airway Submandibular: within normal limits Cervical ROM: within normal limits Mallampati: Class II Dentition: partials Pulmonary Chronic Obstructive Pulmonary Disease CV/HEM Coronary Artery Disease (CABG), Hypertension and Murmur () Metabolic Diabetes Mellitus (poorly controlled) and Morbid Obesity Anesthetic Plan ASA status: 3 Anesthesia: General Medications/Allergies Home Medications Medication Instructions Recorded Confirmed Last Taken Type aspirin 81 mg tablet,delayed 81 mg PO DAILY 10/12/20 10/13/21 10/11/21 History release (Adult Low Dose Aspirin) cholecalciferol (vitamin D3) 25 75 mcg PO DAILY cap 10/12/20 10/13/21 10/12/21 History mcg (1,000 unit) capsule cyanocobalamin (vitamin B-12) 1,000 mcg PO DAILY 10/12/20 10/13/21 10/12/21 History 1,000 mcg capsule pantoprazole 40 mg tablet,delayed 40 mg PO DAILY 10/12/20 10/13/21 10/12/21 History release alogliptin 6.25 mg tablet 6.25 mg PO DAILY 04/19/21 10/13/21 10/12/21 History capsaicin 0.075 % topical cream 1 applic TOPICAL PRN PRN 04/19/21 10/13/21 10/12/21 History carvedilol 25 mg tablet 12.5 mg PO BID tab 04/19/21 10/13/21 10/13/21 05:50 History clobetasol 0.05 % topical spray 1 applic TOPICAL PRN PRN 04/19/21 10/13/21 10/12/21 History (Clobex) diclofenac sodium 1 % topical gel 2 g TOPICAL PRN PRN 04/19/21 10/13/21 10/12/21 History (Arthritis Pain (diclofenac)) prednisone 5 mg tablet See Rx Instructions PO DAILY #45 04/19/21 10/13/21 10/12/21 Rx tab torsemide 20 mg tablet 40 mg PO DAILY tab 06/07/21 10/13/21 10/12/21 History allopurinol 100 mg tablet 150 mg PO DAILY tab 06/17/21 10/13/21 10/12/21 History atorvastatin 40 mg tablet (Lipitor) 40 mg PO DAILY tab 06/17/21 10/13/21 10/12/21 History ferrous gluconate 324 mg (37.5 mg 324 mg PO DAILY 06/17/21 10/13/21 10/12/21 History iron) tablet amlodipine 10 mg tablet 10 mg PO DAILY 90 Days #90 tab 06/20/21 10/13/21 10/12/21 Rx albuterol sulfate 90 mcg/actuation 2 puff INHALATION QID PRN 09/08/21 10/13/21 10/06/21 History aerosol inhaler fluticasone 100 mcg-salmeterol 50 1 inh INHALATION BID 09/08/21 10/13/21 10/12/21 History mcg/dose blistr powdr for inhalation glucose 4 gram chewable tablet 4 g PO Q15M PRN 09/08/21 10/13/21 10/12/21 History insulin aspar prt-insulin aspart See Rx Instructions .ROUTE .COMPLEX 09/08/21 10/13/21 10/12/21 History 100 unit/mL (70-30) subcutaneous soln (Novolog Mix 70-30 U-100 Insuln) omega-3 fatty acids-fish oil 684 1 cap PO DAILY 09/08/21 10/13/21 10/12/21 History mg-1,200 mg capsule,delayed release Allergies Allergy/AdvReac Type Severity Reaction Status Date / Time sulfamethoxazole Allergy Mild Rash Verified 10/13/21 06:47 [From Bactrim] trimethoprim [From Bactrim] Allergy Mild Rash Verified 10/13/21 06:47 niacin Allergy Unknown Verified 10/13/21 06:47 Current Medications Generic Name Dose Route Start Last Admin Trade Name Toya PRN Reason Stop Dose Admin Sodium Chloride 1,000 mls @ 30 mls/hr 10/13/21 06:30 10/13/21 07:19 Sodium Chloride 0.9% IV 10/14/21 06:29 30 mls/hr .Q24H MANI Administration PFSH Anesthesia Medical History Aortic cusp regurgitation Aortic regurgitation CAD (coronary artery disease) CKD (chronic kidney disease) stage 3, GFR 30-59 ml/min Controlled diabetes mellitus with diabetic nephropathy Diverticulosis Gout, unspecified Hyperlipidemia Hypertension Male circumcision Psoriasis Surgical History History of back surgery History of bilateral knee replacement History of colonoscopy (07/15/21) History of partial colectomy History of total left knee replacement had a partial prior to total Hx of CABG Hx of cholecystectomy Hx of rotator cuff surgery Right Family History Grandmother Diabetes Stroke Hypertension Mother Diabetes Hypertension Father Heart attack Denies family history of Rheumatoid arthritis Lupus Clotting disorder Hyperlipidemia Anesthesia complication Bleeding disorder Cancer Social History Smoking and tobacco status: never smoked Alcohol intake: never History of recent travel: No Data Anesthesia Cardiac Studies: Echocardiogram 07/06/21
[2021-10-13] MEDS: neomycin-poly-bacitracin oint 28 gm 1 APPLIC TOPICAL (08:40)
--- NOTE | 2021-10-13 08:42 | P.OP_ITS ---
Operative Report Date of procedure: October 13, 2021 Pre-op diagnosis: Preop Diagnosis Right suboccipital neck mass Post-op diagnosis: Same Post-op findings: Encapsulated rounded mass approximately 2 cm in diameter adherent to all surrounding structures and deep musculature of the neck. Procedure done: Excision of right suboccipital neck mass Implants: No implants. Specimens removed/disposition: Right suboccipital neck mass Pathology: Right suboccipital neck mass for permanent section only Surgeon: Tien Jones MD Anesthesia: General and Local Estimated blood loss: 20 mL Complications: No complications encountered Findings: 2 cm spherical slightly irregular encapsulated mass in right suboccipital deep neck tissue. Adherent to surrounding subcutaneous fat and deep musculature Brief History: 75-year-old male patient has had a right suboccipital neck mass enlarged in size. Some discomfort associated. On exam it is a firm mass. It is not mobile. No fluctuance. Patient being brought to the operating room to undergo excision of this mass as he cannot wear a collared shirt and due to the enlarging size and the discomfort he will have it excised. The procedure its risks and complications of been explained in detail in the office setting. These risks included bleeding infection numbness scarring swelling bruising recurrence need for additional treatment and more serious risks associated with anesthesia. With these things understood informed consent was granted and witnessed. Procedure: Description of procedure: The patient was placed on the operating table in the supine position. Adequate general LMA anesthesia was obtained. The patient was then rotated slightly towards his left side and a beanbag was deflated to hold them in place. Care was taken to make sure that his arms were appropriately positioned. David the site was noted. Timeout was accomplished identifying the patient date of plan procedure allergies fire risk and medications given. With all in agreement the procedure continued. Patient received Ancef IV for prophylaxis. Electric shaver was used to remove hair over the surgical site. Alcohol was used to cleanse over the david the site and the area of the planned incision. Then 3.4 mL of 2% Xylocaine with 1-100,000 epinephrine was used to infiltrate the planned incision area. Then the patient was prepped and draped in usual fashion. A marking pen was used to outline the planned vertical incision. This was created with the cut mode of the Bovie on a low setting. This was carried down to the subcutaneous fat. Then careful dissection was carried around in all directions. Retraction with double hooks and wheat [place] retractors was used. The excision was done with dissectors and then bipolar cautery and needle tip Bovie. Findings were that the entire mass was encapsulated but was adherent to all structures subcutaneous fat and deep musculature. After removal the mass was found to be approximately 2 cm ovoid in shape. Slightly irregular protrusions. The specimen was resected and sent for permanent section pathology only. The excision site was then rinsed with saline repeatedly. The defect was then closed after there was no evidence of any bleeding with multiple layers of interrupted 4-0 chromic to close the deep and subcutaneous layers. Then the skin was closed with skin olegario. The neck was then cleansed. Neosporin ointment was applied over the incision and olegario. Then a large sterile bandage was placed. Drapes were removed. The patient was then returned to anesthesia for wake-up and extubation. He tolerated the procedure well had an estimated blood loss of 20 mL and arrived in recovery in stable condition.
[2021-10-13 08:45] VITALS: BP 134/75; PULSE 76; RESP 20; TEMP 36.2; O2SAT 96
[2021-10-13 08:50] VITALS: BP 143/77; PULSE 69; RESP 12; O2SAT 95
[2021-10-13 08:55] VITALS: BP 137/69; PULSE 69; RESP 16; O2SAT 95
[2021-10-13 09:00] VITALS: BP 142/76; PULSE 68; RESP 17; TEMP 36.3; O2SAT 97
[2021-10-13 09:02] VITALS: BP 132/70; PULSE 69; RESP 18; O2SAT 93
--- NOTE | 2021-10-13 14:40 | ANE.PACU2 ---
Inpatient post-anesthesia follow up: Airway intact: Yes Vital signs: Temperature 97.3 F Pulse Rate 69 Respiratory Rate 18 Blood Pressure 132/70 Pulse Oximetry 93 Oxygen Delivery Me thod Room Air Oxygen Flow Rate Fraction of Inspir ed Oxygen Hydration adequate: Yes Nausea and vomiting: No Pain level: 1 Mental status: Baseline
== END 2021-10-13 09:50 | disposition home or self-care (01) ==
PROVIDERS: PCP Family Medicine; Visit Provider Otolaryngology
PROC: (CPT 11422; principal; 2021-10-13 07:25)
DX: D17.0 Benign lipomatous neoplasm of skin and subcutaneous tissue of head, face and neck (principal); J44.9 Chronic obstructive pulmonary disease, unspecified; I25.10 Atherosclerotic heart disease of native coronary artery without angina pectoris; Z95.1 Presence of aortocoronary bypass graft; I10 Essential (primary) hypertension; E11.9 Type 2 diabetes mellitus without complications; E66.01 Morbid (severe) obesity due to excess calories; Z68.33 Body mass index [BMI] 33.0-33.9, adult; Z79.82 Long term (current) use of aspirin; Z79.4 Long term (current) use of insulin
CPT/HCPCS: 11422; 13131; 36416; 82962; 88307; J1100; J2405; J2704; J3010; J7030

== ENCOUNTER → 2021-10-21 10:14 | Outpatient (BNVA) | payer OTHER, SELFPAY | PROVIDERS: PCP Family Medicine; Visit Provider Otolaryngology | DX: Z48.89 Encounter for other specified surgical aftercare (principal); R22.1 Localized swelling, mass and lump, neck | CPT/HCPCS: 99024 ==

== ENCOUNTER → 2021-10-25 11:22 | Outpatient (BNVA) | payer OTHER, SELFPAY | PROVIDERS: PCP Family Medicine; Visit Provider Podiatrist Foot & Ankle Surgery | DX: E11.42 Type 2 diabetes mellitus with diabetic polyneuropathy (principal); L60.3 Nail dystrophy; I73.9 Peripheral vascular disease, unspecified; M20.41 Other hammer toe(s) (acquired), right foot; M20.42 Other hammer toe(s) (acquired), left foot | CPT/HCPCS: 11721 ==

== ENCOUNTER → 2021-12-13 11:42 | Outpatient (BNVA) | payer OTHER, SELFPAY | PROVIDERS: PCP Family Medicine; Visit Provider Internal Medicine Cardiovascular Disease | DX: I25.10 Atherosclerotic heart disease of native coronary artery without angina pectoris (principal); I12.9 Hypertensive chronic kidney disease with stage 1 through stage 4 chronic kidney disease, or unspecified chronic kidney disease; N18.30 Chronic kidney disease, stage 3 unspecified; Z95.1 Presence of aortocoronary bypass graft; E78.5 Hyperlipidemia, unspecified; E11.22 Type 2 diabetes mellitus with diabetic chronic kidney disease; Z79.4 Long term (current) use of insulin | CPT/HCPCS: 99213; 99214 ==

== ENCOUNTER 2021-12-23 14:40 | Outpatient (CLI) | payer OTHER, SELFPAY ==
--- NOTE | 2021-12-23 15:03 | USCV_ITS ---
Becky, [place] Age: 76 Gender: M : 1945 Exam Date: 12/23/2021 15:34 Ordering Phys: Gretchen Ridley MD Technologist: ALFREDO Exam Location: [facility] [place] Indication: BLE NUMBNESS Risk Factors: Previous Vascular Surgery: RIGHT LEFT BP: 134.0 / BP: 147.0/ 0 0 Waveform Velocity (cm/s) Velocity (cm/s) Waveform Triphasic 68.1 Iliac Prox 94.6 Triphasic Triphasic 71.6 Iliac Mid 86.7 Triphasic Triphasic Iliac Distal Triphasic 87.0 82.3 Triphasic 96.3 ADMINISTRATOR SOCIAL WELFARE 120.3 Triphasic Triphasic 97.4 SFA Prox 90.5 Triphasic Triphasic 92.1 SFA Mid 85.5 Triphasic Triphasic 92.1 SFA Dist 82.7 Triphasic Triphasic 58.1 POP 44.7 Triphasic Triphasic 95.4 COMMERCIAL LOAN ANALYST 74.5 Triphasic Biphasic 36.2 DPA 69.1 Triphasic 1.2 ADIS 1.1 FINDINGS Normal arterial Doppler waveforms and velocities Resting ADIS of 1.2 on the right and 1.1 on the left CONCLUSIONS Normal resting ABIs and arterial Doppler waveforms No significant arterial obstruction, based on the above findings. Dr Markell Matthews MD [facility] (Electronically Signed) Final Date: 24 December 2021 09:57 S
--- NOTE | 2021-12-23 15:04 | USCV_ITS ---
Becky, [place] Age: 76 Gender: M : 1945 Exam Date: 12/23/2021 15:53 Ordering Phys: Gretchen Ridley MD Technologist: SHAHRIAR [place] [facility] [place]ication: CAROTID BRUIT Risk Factors: Previous Vascular Surgery: Right Brachial BP: / Left Brachial BP: / Right Left Velocity (cm/s) Spectral Plaque Velocity (cm/s) Spectral Plaque Syst/Diast Broadening Syst/Diast Broadening 69.10/ 10.10 Prox CCA 71.00 / 15.80 90.10/ 14.00 Mid CCA 79.50 / 15.40 65.30/ 10.10 Distal CCA 67.50 / 12.80 77.80/ 21.40 Prox ICA 97.20 / 24.70 106.00/29.90 Mid ICA 74.10 / 17.30 85.40/ 25.60 Distal ICA 76.00 / 17.80 110.20 ECA 104.60 1.18 ICA/CCA 1.22 Vertebral 41.40/ 15.10 cm/s 45.40/ 10.50 cm/s Subclavian 126.2 124.6 0 0 CONCLUSIONS Right ICA stenosis <50%. Left ICA stenosis <50%. Normal antegrade Doppler flow noted in the right vertebral artery. Normal antegrade Doppler flow noted in the left vertebral artery. Andrew Mcdonough MD (Electronically Signed) Final Date: 25 December 2021 12:11 S
== END 2021-12-23 14:41 | disposition home or self-care (01) ==
LOC: RAD 14:40
PROVIDERS: PCP Family Medicine; Visit Provider Family Medicine
DX: R09.89 Other specified symptoms and signs involving the circulatory and respiratory systems (principal); I65.23 Occlusion and stenosis of bilateral carotid arteries; M79.672 Pain in left foot; M79.671 Pain in right foot; R20.0 Anesthesia of skin
CPT/HCPCS: 93880; 93925

== ENCOUNTER → 2022-01-17 11:02 | Outpatient (BNVA) | payer OTHER, SELFPAY | PROVIDERS: PCP Family Medicine; Visit Provider Podiatrist Foot & Ankle Surgery | DX: E11.8 Type 2 diabetes mellitus with unspecified complications (principal); E11.42 Type 2 diabetes mellitus with diabetic polyneuropathy; L60.3 Nail dystrophy; I73.9 Peripheral vascular disease, unspecified; M20.41 Other hammer toe(s) (acquired), right foot; M20.42 Other hammer toe(s) (acquired), left foot; Z79.4 Long term (current) use of insulin | CPT/HCPCS: 11721 ==

== ENCOUNTER → 2022-03-01 14:48 | Outpatient (BNVA) | payer OTHER, SELFPAY | PROVIDERS: PCP Family Medicine; Visit Provider Internal Medicine | DX: M25.50 Pain in unspecified joint (principal); N18.30 Chronic kidney disease, stage 3 unspecified; L40.9 Psoriasis, unspecified; R60.9 Edema, unspecified; Z90.49 Acquired absence of other specified parts of digestive tract; Z79.52 Long term (current) use of systemic steroids | CPT/HCPCS: 99213 ==

== ENCOUNTER → 2022-03-28 11:16 | Outpatient (BNVA) | payer OTHER, SELFPAY | PROVIDERS: PCP Family Medicine; Referring Provider Family Medicine; Visit Provider Orthopaedic Surgery | DX: M48.062 Spinal stenosis, lumbar region with neurogenic claudication (principal); Z98.1 Arthrodesis status; M99.53 Intervertebral disc stenosis of neural canal of lumbar region | CPT/HCPCS: 72120; 99214 ==

== ENCOUNTER 2022-04-16 17:34 | Inpatient (IN) | payer OTHER, SELFPAY ==
[2022-04-16] VITALS (11 sets, daily range): BP systolic 118–152; BP diastolic 69–83; PULSE 71–78; RESP 12–20; TEMP 36.3–36.4; O2SAT 20–97
--- NOTE | 2022-04-16 17:55 | XRR_ITS ---
PROCEDURE INFORMATION: Exam: XR Chest Exam date and time: 04/16/2022 6:17 PM Age: 76 years old Clinical indication: Shortness of breath; Additional info: SOB TECHNIQUE: Imaging protocol: Radiologic exam of the chest. Views: 1 view. COMPARISON: CR XR chest 1V portable [id number] 09/08/2021 4:04 PM FINDINGS: Lungs: There is hazy ground-glass opacification with peribronchial cuffing within the mid to lower lung zones likely secondary to pulmonary vascular congestion that has developed from previous exam. There are minimal bibasilar pleural effusions that have developed likely cardiogenic in nature. Pleural spaces: See Lungs finding. Heart/Mediastinum: The cardiac silhouette is mildly enlarged. There is pulmonary vascular redistribution indicating elevated central venous pressure. Bones/joints: Patient has undergone prior median sternotomy. XR/XR chest 1V portable [id number] IMPRESSION: Cardiomegaly with mild-moderate CHF pattern.
--- NOTE | 2022-04-16 18:05 | ECG_ITS ---
Test Date: 2022-04-16 Pat Name: Scott Pena Department: Room: Gender: Male Shed Boss: : 1945 Requested By: Sung [place] Order Number: [id number] [place] MD: Chente Vaz M.D. Measurements Intervals [place] Rate: 73 P: 49 TN: 234 QRS: 1 QRSD: 114 T: 60 QT: 432 QTc: 477 Interpretive Statements SINUS RHYTHM WITH FIRST DEGREE AV BLOCK Unusual R wave progression, possible lead misplacement INCOMPLETE RIGHT BUNDLE BRANCH BLOCK [90+ ms QRS DURATION, TERMINAL R IN V1/V2, 40+ ms S IN I/aVL/V4/V5/V6] MODERATE ST DEPRESSION [0.05+ mV ST DEPRESSION] Compared to ECG 09/08/2021 16:12:03 Incomplete right bundle-branch block now present ST (T wave) deviation now present Ectopic atrial rhythm no longer present Myocardial infarct finding no longer present Electronically Signed On 04-17-2022 7:09:42 BEESWAX BLEACHER by Chente Vaz M.D. [email or web address]
--- NOTE | 2022-04-16 18:08 | W.ED.SOB ---
HPI - SOB/Dyspnea General: Chief Complaint: Shortness of Breath/Dyspnea Stated Complaint: SOB, Weezing Time Seen by Provider: 04/16/22 17:54 Source: patient Mode of arrival: ambulatory Limitations: no limitations History of Present Illness: HPI Narrative: 76-year-old male states that over the last 3 days he has been having increasing shortness of breath with wheezing denies any history of COPD states he has had a cough with audible wheezing here his pulse ox was low he is requiring 3 L of oxygen currently he denies any fevers had just a mild cough he has some slight pain he states with his breathing. Denies any vomiting or diarrhea. Associated symptoms: Deny abdominal pain, chest pain, fever(s), nausea or vomiting Review of Systems Const: Denies: fever(s), chills, body aches or change in appetite Eyes: Denies: blurry vision or eye discomfort ENMT: Denies: throat pain or dental pain Card: Denies: chest pain Resp: Reports: dyspnea, non-productive cough and wheezing GI: Denies: abdominal pain, nausea, vomiting or diarrhea : Denies: dysuria Musc: Denies: neck pain or back pain Skin/Breast: Denies: rash Neuro: Denies: headache(s) Psych: Denies: depression Ben/Lymph: Denies: easy bruising All/Imm: Denies: urticaria PFSH ED PFSH: Medical History Aortic cusp regurgitation Aortic regurgitation CAD (coronary artery disease) CKD (chronic kidney disease) stage 3, GFR 30-59 ml/min Controlled diabetes mellitus with diabetic nephropathy Diverticulosis Gout, unspecified Hyperlipidemia Hypertension Lower back pain Male circumcision Psoriasis Surgical History History of back surgery History of bilateral knee replacement History of colonoscopy (07/15/21) History of partial colectomy History of total left knee replacement had a partial prior to total Hx of CABG Hx of cholecystectomy Hx of neck surgery removal of mass Hx of rotator cuff surgery Right Family History Grandmother Diabetes Stroke Hypertension Mother Diabetes Hypertension Father Heart attack Denies family history of Rheumatoid arthritis Lupus Clotting disorder Hyperlipidemia Anesthesia complication Bleeding disorder Cancer Social History Smoking and tobacco status: never smoked Alcohol intake: never History of recent travel: No Physical Exam Const: COMMON NORMALS: patient oriented x3 GENERAL APPEARANCE: in distress HENMT: COMMON NORMALS: normocephalic and atraumatic HEAD & SCALP: normocephalic and atraumatic Eye: COMMON NORMALS: Equal, round and reactive pupils present and EOMs intact bilaterally PUPIL: Yes Equal, round and reactive pupils present Neck/C-Spine: COMMON NORMALS: full ROM and supple Chest: COMMONS NORMALS: normal inspection of the chest and normal palpation of entire chest wall Resp: COMMON NORMALS: No retractions and No use of accessory muscles EFFORT & INSPECTION: Yes tachypneic AUSCULTATION: wheezes Cardio: COMMON NORMALS: regular rate, regular rhythm and No murmurs present (Cardio) RATE: regular rate RHYTHM: regular rhythm GI: COMMON NORMALS: Normal to inspection, nondistended, normoactive bowel sounds present, Soft to palpation, non-tender and no masses PALPATION: Yes Soft to palpation Extremity: COMMON NORMALS: normal to inspection and full ROM Neuro: COMMON NORMALS: patient oriented x3, moves all extremities and no focal motor deficits Psych: COMMON NORMALS: mental status grossly normal, Normal thought process present and cooperative THOUGHT PROCESS: Normal thought process present Skin: COMMON NORMALS: no rashes or lesions noted and no wounds GENERAL SKIN EXAM: no rashes or lesions noted Course Vital Signs: Vital signs: Vital Signs Temperature 97.3 F L 04/16/22 17:39 Pulse Rate 71 04/16/22 19:22 Respiratory Rate 20 H 04/16/22 19:22 Blood Pressure 150/80 04/16/22 19:22 Pulse Oximetry 90 04/16/22 19:22 Oxygen Delivery Me thod 04/16/22 19:22 Oxygen Flow Rate 4 04/16/22 19:22 MDM - SOB/Dyspnea Medical Decision Making Patient presents for shortness of breath along with hypoxia he is requiring 4 L oxygen here he does have a history of CHF x-ray shows CHF changes likely causing his dyspnea he does feel improved here after breathing treatments no history of COPD no signs pneumonia he has no chest pain. Lab Data 04/16/22 18:10 04/16/22 18:10 Labs/Radiology: Radiology Impressions Chest X-Ray 04/16/22 17:55 IMPRESSION: Cardiomegaly with mild-moderate CHF pattern. Laboratory Results WBC 9.5 10^3/uL (4.0-10.0) 04/16/22 18:10 RBC 3.54 10^6/uL (4.1-5.3) L 04/16/22 18:10 Hgb 10.9 g/dL (11.7-16.6) L 04/16/22 18:10 Hct 32.1 % (42.0-52.0) L 04/16/22 18:10 MCV 90.7 fl (80-94) 04/16/22 18:10 MCH 30.8 pg (28.0-34.0) 04/16/22 18:10 MCHC 34.0 g/dL (30.0-36.0) 04/16/22 18:10 RDW 14.1 % (12.1-15.1) 04/16/22 18:10 Plt Count 197 10^3/cmm (130-400) 04/16/22 18:10 MPV 10.3 fL (7.4-10.4) 04/16/22 18:10 Neut % (Auto) 88.7 % 04/16/22 18:10 Lymph % (Auto) 5.3 % 04/16/22 18:10 [place] % (Auto) 4.8 % 04/16/22 18:10 Eos % (Auto) 0.3 % 04/16/22 18:10 Baso % (Auto) 0.4 % 04/16/22 18:10 Neut # (Auto) 8.45 10^3/uL (1.8-7.7) H 04/16/22 18:10 Lymph # (Auto) 0.5 10^3/uL (0.8-4.8) L 04/16/22 18:10 [place] # (Auto) 0.5 10^3/uL (0.2-0.9) 04/16/22 18:10 Eos # (Auto) 0.0 10^3/uL (0.0-0.8) 04/16/22 18:10 Baso # (Auto) 0.0 10^3/uL (0.0-0.1) 04/16/22 18:10 Nucleated RBC % (auto) 0 % 04/16/22 18:10 Nucleated RBCs # 0.0 /100WBC 04/16/22 18:10 PT 15.60 SECONDS (12.1-14.9) H 04/16/22 18:10 INR 1.21 (0.8-1.2) H 04/16/22 18:10 Sodium 131 mmol/L (136-145) L 04/16/22 18:10 Potassium 4.1 mmol/L (3.5-5.1) 04/16/22 18:10 Chloride 93 mmol/L (98-107) L 04/16/22 18:10 Carbon Dioxide 21 mmol/L (22-29) L 04/16/22 18:10 Anion Gap 21.1 (5-19) H 04/16/22 18:10 BUN 48 mg/dL (8-23) H 04/16/22 18:10 Creatinine 2.6 mg/dL (0.7-1.2) H 04/16/22 18:10 GFR Calculation Not Reportable 04/16/22 18:10 Glucose 201 mg/dL (65-115) H 04/16/22 18:10 Calculated Osmolality 290 mOsm/kg (285-295) 04/16/22 18:10 Calcium 8.3 mg/dL (8.5-10.5) L 04/16/22 18:10 Total Bilirubin 1.4 mg/dL (0.15-1.2) H 04/16/22 18:10 AST 23 U/L (0-40) 04/16/22 18:10 ALT 14 U/L (0-41) 04/16/22 18:10 Alkaline Phosphatase 127 U/L (40-130) 04/16/22 18:10 Troponin T Baseline 91 ng/L (0-15) H 04/16/22 18:10 Troponin T 120 Minute 86.74 ng/L (0-15) H 04/16/22 19:26 Delta Troponin T -4.26 ABS# (0-10) L 04/16/22 19:26 NT-Pro-B Natriuret Pep 3349 pg/mL (0-450) H 04/16/22 18:10 Total Protein 7.4 g/dL (6.6-8.7) 04/16/22 18:10 Albumin 4.0 g/dL (3.5-5.2) 04/16/22 18:10 Globulin 3.4 g/dL (1.3-4.6) 04/16/22 18:10 Influenza Type A Ag negative (Negative) 04/16/22 18:10 Influenza Type B Ag negative (Negative) 04/16/22 18:10 SARS-CoV-2 Ag (Rapid) negative (Negative) 04/16/22 18:10 Critical Care Time Critical Care Time: Critical Care Time: Yes Total Critical Care Time: 45 Attestation: The high probability of a clinically significant, sudden or life threatening deterioration of the patient's resp system(s) required my full and direct attention, intervention and personal management. The critical care time is as shown. This time is in addition to time spent performing any reported procedures but includes the following: [x] Data and vital sign review and interpretation [x] Patient assessment, examination and intervention [x] Documentation [x] Medication orders and management Discharge Plan Discharge Patient Disposition: Admitted As Inpatient Clinical Impression: Acute exacerbation of CHF (congestive heart failure), Acute respiratory failure with hypoxemia Condition: Stable Coding Level of Care Code ED Radiology Equipment Servicer for Parvez Fwd Exam Comprehensive
[2022-04-16 18:22] LABS: Basophils % 0.4 %; Eosinophils % 0.3 %; Hematocrit 32.1 % (42.0-52.0); Hemoglobin 10.9 g/dL (11.7-16.6); Lymphocytes # 0.5 10^3/uL (0.8-4.8); Lymphocytes % 5.3 %; Mean Corpuscular Hemoglobin 30.8 pg (28.0-34.0); Mean Corpuscular Volume 90.7 fl (80-94); Mean Platelet Volume 10.3 fL (7.4-10.4); Monocytes # 0.5 10^3/uL (0.2-0.9); Monocytes % 4.8 %; Neutrophils # 8.45 10^3/uL (1.8-7.7); Neutrophils % 88.7 %; Nucleated Red Blood Cells % 0 %; Platelet Count 197 10^3/cmm (130-400); Red Blood Count 3.54 10^6/uL (4.1-5.3); Red Cell Distribution Width 14.1 % (12.1-15.1); White Blood Count 9.5 10^3/uL (4.0-10.0)
[2022-04-16] MEDS: albuterol 2.5 mg/3 mL Neb INHALATION (18:22)
[2022-04-16 18:32] LABS: INR 1.21 (0.8-1.2)
[2022-04-16 18:35] LABS: Influenza A by IFA negative (Negative); Influenza B by IFA negative (Negative)
[2022-04-16 18:36] LABS: SARS Covid-2 Antigen negative (Negative)
[2022-04-16 18:40] LABS: Troponin(5th) Baseline 91 ng/L (0-15)
[2022-04-16 18:51] LABS: Blood Urea Nitrogen 48 mg/dL (8-23); Chloride 93 mmol/L (98-107); Osmolality Calculated 290 mOsm/kg (285-295); Potassium 4.1 mmol/L (3.5-5.1); Sodium 131 mmol/L (136-145); Total Bilirubin 1.4 mg/dL (0.15-1.2); Total Protein 7.4 g/dL (6.6-8.7)
--- NOTE | 2022-04-16 18:59 | PC.NURSE ---
PT PLACED ON CONTINUOUS NIBP, SPO2, AND CM
--- NOTE | 2022-04-16 19:00 | PC.NURSE ---
Report from DODIE Chambers. Adjusted pt in bed. Blankets provided. No further needs at this time.
[2022-04-16 19:29] LABS: Alanine Aminotransferase 14 U/L (0-41); Alkaline Phosphatase 127 U/L (40-130); Anion Gap 21.1 (5-19); Aspartate Amino Transferase 23 U/L (0-40); Calcium 8.3 mg/dL (8.5-10.5); Carbon Dioxide 21 mmol/L (22-29); Globulin 3.4 g/dL (1.3-4.6); Glucose 201 mg/dL (65-115)
[2022-04-16 19:37] LABS: NT Pro B Type Natriuretic Pept 3349 pg/mL (0-450)
--- NOTE | 2022-04-16 20:05 | ECG_ITS ---
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 Measurements Intervals [place] Rate: 73 P: 62 MI: 249 QRS: -4 QRSD: 118 T: 69 QT: 442 QTc: 488 Interpretive Statements SINUS RHYTHM WITH FIRST DEGREE AV BLOCK POSSIBLE LEFT ATRIAL ENLARGEMENT [-0.1mV P-WAVE IN V1/V2] INCOMPLETE RIGHT BUNDLE BRANCH BLOCK [90+ ms QRS DURATION, TERMINAL R IN V1/V2, 40+ ms S IN I/aVL/V4/V5/V6] MODERATE ST DEPRESSION [0.05+ mV ST DEPRESSION] PROLONGED QT INTERVAL Compared to ECG 04/16/2022 18:24:58 Prolonged QT interval now present ST (T wave) deviation still present Electronically Signed On 04-17-2022 7:15:21 FIELD SPECIALIST by Chente Vaz M.D. [id number]
[2022-04-16] MEDS: FUROsemide 10 mg/mL SDV 4mL 40 MG IVP (20:24)
[2022-04-16 20:26] LABS: Troponin 5 2HR 86.74 ng/L (0-15)
[2022-04-16 20:27] LABS: Troponin 5 2HR Delta -4.26 ABS# (0-10)
[2022-04-16 21:01] LABS: ABG PCO2 38.3 mmHg (35-45); ABG PH Result 7.42 (7.35-7.45); Base Excess ABG 0.7 mmol/L (-2.0-2.0); Blood Gas Allen Test Pos; Blood Gas Sample Site Radial, right; Blood Gas Sample Type Arterial; HCO3 ABG 25.1 mmol/L (22-26); Oxygen Device NC; PO2 ABG 57.8 mmHg (80.0-100.0)
--- NOTE | 2022-04-16 21:40 | P.HP_ITS ---
Providers/Chief Complaint Admitting Physician: Jonathan Rios MD Primary Care Provider: Gretchen Ridley MD Chief Complaint: SOB, Weezing History of Present Illness Scott Pena Jr is a 76 year old male with a past medical history of CAD, history of CABG, CKD stage III, hypertension, dyslipidemia, anemia, svx-dgmdzyg-wacrmjewp type 2 diabetes mellitus, psoriasis on chronic prednisone, who presents to [facility] due to shortness of breath, shortness of breath with exertion, wheezing. Patient does note that today he started to feel short of breath, increasingly short of breath with exertion, with wheezing. Denies any chest pain, palpitations. Does report a productive cough. No fevers, no chills, denies a history of COPD, but has a inhaler for asthma. Denies any lightheadedness, no dizziness. No sick contacts, no history of flu or COVID. No known history of exposure. No calf pain or Swelling. No hemoptysis. He does not use oxygen, but was placed on 5 L here in the emergency room. Review of Systems Const: Denies: fever(s) or chills Eyes: Denies: change in vision ENMT: Denies: throat pain Card: Denies: chest pain Resp: Reports: dyspnea and productive cough GI: Denies: abdominal pain : Denies: flank pain, difficulty urinating or dysuria Musc: Denies: back pain Skin/Breast: Denies: rash Neuro: Denies: headache(s) Medications/Allergies Home Medications Medication Instructions Recorded Confirmed Last Taken Type aspirin 81 mg tablet,delayed 81 mg PO DAILY 10/12/20 04/16/22 04/16/22 History release (Adult Low Dose Aspirin) cholecalciferol (vitamin D3) 25 75 mcg PO DAILY 10/12/20 04/16/22 04/16/22 History mcg (1,000 unit) capsule pantoprazole 40 mg tablet,delayed 40 mg PO DAILY 10/12/20 04/16/22 04/16/22 History release alogliptin 6.25 mg tablet 6.25 mg PO DAILY 04/19/21 04/16/22 04/16/22 History capsaicin 0.075 % topical cream 1 applic topical PRN PRN Pain 04/19/21 04/16/22 10/12/21 History carvedilol 25 mg tablet 12.5 mg PO BID 04/19/21 04/16/22 04/16/22 History clobetasol 0.05 % topical spray 1 applic topical PRN PRN Skin 04/19/21 04/16/22 10/12/21 History (Clobex) Irritation diclofenac sodium 1 % topical gel 2 g topical PRN PRN Pain 04/19/21 04/16/22 10/12/21 History (Arthritis Pain (diclofenac)) torsemide 20 mg tablet 40 mg PO DAILY 06/07/21 04/16/22 04/16/22 History allopurinol 100 mg tablet 150 mg PO DAILY 06/17/21 04/16/22 04/16/22 History atorvastatin 40 mg tablet (Lipitor) 40 mg PO DAILY 06/17/21 04/16/22 04/16/22 History amlodipine 10 mg tablet 10 mg PO DAILY 90 days #90 tabs 06/20/21 04/16/22 04/16/22 Rx albuterol sulfate 90 mcg/actuation 2 puff inhalation QID PRN 09/08/21 04/16/22 04/16/22 History aerosol inhaler Shortness Of Breath fluticasone 100 mcg-salmeterol 50 1 inh inhalation BID 09/08/21 04/16/22 04/16/22 History mcg/dose blistr powdr for inhalation glucose 4 gram chewable tablet 4 g PO Q15M PRN LOW BLOOD SUGAR 09/08/21 04/16/22 10/12/21 History tramadol 50 mg tablet 50 mg PO Q6H PRN pain #30 tabs 10/13/21 03/28/22 Unknown Rx prednisone 5 mg tablet 5 mg PO DAILY #20 tabs 10/14/21 04/16/22 04/16/22 Rx ketoconazole 2 % topical cream 1 applic topical BID #30 grams 01/31/22 04/16/22 04/16/22 Rx betamethasone dipropionate 0.05 % 1 applic topical BID PRN per md 04/16/22 04/16/22 Unknown History topical ointment orders calcipotriene 0.005 % topical cream 1 applic topical DAILY PRN per md 04/16/22 04/16/22 Unknown History orders ferrous sulfate 325 mg PO BID 04/16/22 04/16/22 04/16/22 History omega-3 fatty acids 2,000 mg PO DAILY 04/16/22 04/16/22 04/16/22 History semaglutide 0.25 mg or 0.5 mg (2 mg SUBCUT 04/16/22 04/15/22 History mg/1.5 mL) subcutaneous pen injector (Ozempic) Allergies Allergy/AdvReac Type Severity Reaction Status Date / Time sulfamethoxazole Allergy Mild Rash Verified 03/01/22 15:12 [From Bactrim] trimethoprim [From Bactrim] Allergy Mild Rash Verified 03/01/22 15:12 niacin Allergy Unknown Verified 03/01/22 15:12 PFSH Acute PFSH: Medical History Aortic cusp regurgitation Aortic regurgitation CAD (coronary artery disease) CKD (chronic kidney disease) stage 3, GFR 30-59 ml/min Controlled diabetes mellitus with diabetic nephropathy Diverticulosis Gout, unspecified Hyperlipidemia Hypertension Lower back pain Male circumcision Psoriasis Surgical History History of back surgery History of bilateral knee replacement History of colonoscopy (07/15/21) History of partial colectomy History of total left knee replacement had a partial prior to total Hx of CABG Hx of cholecystectomy Hx of neck surgery removal of mass Hx of rotator cuff surgery Right Family History Grandmother Diabetes Stroke Hypertension Mother Diabetes Hypertension Father Heart attack Denies family history of Rheumatoid arthritis Lupus Clotting disorder Hyperlipidemia Anesthesia complication Bleeding disorder Cancer Social History Smoking and tobacco status: never smoked Alcohol intake: never History of recent travel: No Vitals/I&O/Wt Last Vital Signs Temp 97.3 F L 04/16/22 17:39 Pulse 73 04/16/22 20:31 Resp 20 H 04/16/22 20:31 BP 135/81 04/16/22 20:31 Pulse Ox 91 04/16/22 20:31 O2 Del Method 04/16/22 20:31 O2 Flow Rate 5 04/16/22 20:31 Weight last 48 hrs Weight 121.109 kg Physical Exam Const: COMMON NORMALS: no acute distress and patient oriented x3 HENMT: COMMON NORMALS: normocephalic HEAD & SCALP: normocephalic Eye: COMMON NORMALS: Equal, round and reactive pupils present and EOMs intact bilaterally Neck/C-Spine: COMMON NORMALS: no JVD Resp: COMMON NORMALS: normal respiratory effort, No retractions and No use of accessory muscles AUSCULTATION: crackles Cardio: COMMON NORMALS: no JVD, regular rate, regular rhythm, S1 normal heart sound present and S2 normal heart sound present RATE: regular rate RHYTHM: regular rhythm HEART SOUNDS: S1 normal heart sound present and S2 normal heart sound present GI: COMMON NORMALS: Normal to inspection, nondistended, normoactive bowel sounds present, Soft to palpation and non-tender PALPATION: Yes Soft to palpation and No Tenderness to palpation present (GI) Extremity: COMMON NORMALS: no calf tenderness and no pedal edema Neuro: COMMON NORMALS: patient oriented x3, CN's II-XII intact bilaterally, moves all extremities and no focal motor deficits Psych: COMMON NORMALS: mental status grossly normal Data 04/16/22 18:10 04/16/22 18:10 A&P Assessment and plan (1) Acute exacerbation of CHF (congestive heart failure): (2) Acute respiratory failure with hypoxemia: (3) CKD (chronic kidney disease) stage 3, GFR 30-59 ml/min: (4) NSTEMI (non-ST elevated myocardial infarction): Plan Acute hypoxic respiratory failure -With elevated BNP, crackles on exam, likely diastolic CHF exacerbation -However does have complaints of a productive cough, no history of smoking, history of COPD, flu negative COVID-negative, chest x-ray no focal pneumonia possibly respiratory tract infection Plan -Admit to CSU -Fluid restrictions -Cardiac echo -Lasix 40 IV twice daily -Monitor creatinine, potassium, magnesium -Has received steroids in the ER, continue doxycycline for respiratory tract infection -Sputum cultures, blood cultures, albuterol -Patient is DNR/DNI -Lovenox for DVT prophylaxis Chronic kidney disease stage III, at baseline 2.6 monitor as on diuresis as above NSTEMI -No chest pain complaints -Aspirin, statin, Coreg -Serial EKGs, troponins, telemetry monitoring Dlu-hxmhrpj-itvrwakwx type 2 diabetes mellitus, low-dose sliding scale Hypoxia requiring 5 L, diuresis as above Attestations Medical Necessity Statement*: Patient requires hospitalization for CHF exacerbation, diastolic, fluid overload, wheezing, acute hypoxic respiratory failure, hypoxia, CKD, NSTEMI Coding Level of Care Code Acute Code for g Fwd Diagnoses Acute exacerbation of CHF (congestive heart failure) I50.9 Acute respiratory failure with hypoxemia J96.01 CKD (chronic kidney disease) stage 3, GFR 30-59 ml/min N18.30 NSTEMI (non-ST elevated myocardial infarction) I21.4
--- NOTE | 2022-04-16 21:58 | PC.NURSE ---
Pt reposition. Sputum culture collected. Clean gown provided.
[2022-04-16 22:01] LABS: Magnesium 2.2 mg/dL (1.7-2.3)
[2022-04-16 23:27] LABS: C Reactive Protein 52.6 mg/L (0.0-4.9); Chol HDL Ratio 3.64 mg/dL (1.0-5.00); Cholesterol 91 mg/dL (0-200); HDL Cholesterol 25 mg/dL (60-100); LDL Cholesterol Calculated 41 mg/dL (50-129); LDL HDL Ratio 1.64 RATIO (0.00-3.22); Procalcitonin 0.17 ng/mL (0-0.5); Thyroid Stimulating Hormone 6.59 uIU/mL (0.27-4.20); Triglycerides 123 mg/dL (0-150)
[2022-04-16] MEDS: enoxaparin 40 mg/0.4 mL Syringe SUBCUT (23:29)
[2022-04-16 23:36] LABS: Estmated Average Glucose 166; Hemoglobin A1C 7.4 % (4.0-6.0)
[2022-04-17] VITALS (16 sets, daily range): BP systolic 105–162; BP diastolic 57–84; PULSE 71–83; RESP 15–25; TEMP 36.4–36.7; O2SAT 88–96
--- NOTE | 2022-04-17 01:53 | ECG_ITS ---
[facility] Test Date: 2022-04-17 Pat Name: Scott Pena Department: Room: 101 Gender: Male Front Office Secretary: : 1945 Requested By: Sung Washington Order Number: [id number] Laurel MD: Chente Vaz M.D. Measurements Intervals [place] Rate: 71 P: 30 HI: 249 QRS: 36 QRSD: 122 T: 45 QT: 434 QTc: 474 Interpretive Statements SINUS RHYTHM WITH FIRST DEGREE AV BLOCK WITH OCCASIONAL VENTRICULAR PREMATURE COMPLEXES POSSIBLE LEFT ATRIAL ENLARGEMENT [-0.1mV P-WAVE IN V1/V2] POSSIBLE RIGHT VENTRICULAR CONDUCTION DELAY [RSR (QR) IN V1/V2] MODERATE ST DEPRESSION [0.05+ mV ST DEPRESSION] Compared to ECG 04/16/2022 20:26:29 Incomplete right bundle-branch block no longer present Prolonged QT interval no longer present ST (T wave) deviation still present Electronically Signed On 04-17-2022 7:17:44 ROOMING HOUSE INSPECTOR by Chente Vaz M.D. [id number]
[2022-04-17 02:22] LABS: Basophils % 0.2 %; Hematocrit 29.8 % (42.0-52.0); Hemoglobin 10.1 g/dL (11.7-16.6); Lymphocytes # 0.3 10^3/uL (0.8-4.8); Mean Corpuscular HGB Conc 33.9 g/dL (30.0-36.0); Mean Corpuscular Hemoglobin 30.5 pg (28.0-34.0); Mean Platelet Volume 10.4 fL (7.4-10.4); Monocytes # 0.1 10^3/uL (0.2-0.9); Monocytes % 0.8 %; Neutrophils # 6.16 10^3/uL (1.8-7.7); Neutrophils % 93.2 %; Nucleated Red Blood Cells % 0 %; Platelet Count 184 10^3/cmm (130-400); Red Blood Count 3.31 10^6/uL (4.1-5.3); Red Cell Distribution Width 13.9 % (12.1-15.1); White Blood Count 6.6 10^3/uL (4.0-10.0)
[2022-04-17 02:40] LABS: Troponin 5 6HR 78.01 ng/L (0-15)
[2022-04-17 02:50] LABS: Anion Gap 20.2 (5-19); Blood Urea Nitrogen 56 mg/dL (8-23); Calcium 8.1 mg/dL (8.5-10.5); Carbon Dioxide 21 mmol/L (22-29); Chloride 92 mmol/L (98-107); Glucose 263 mg/dL (65-115); NT Pro B Type Natriuretic Pept 3742 pg/mL (0-450); Osmolality Calculated 293 mOsm/kg (285-295); Potassium 4.2 mmol/L (3.5-5.1); Sodium 129 mmol/L (136-145)
--- NOTE | 2022-04-17 04:25 | PC.NURSE ---
Bladderscanned patient to rule out urine retention. Bladder scan revealed >414ml in bladder, patient currently with no urge to uninate.
--- NOTE | 2022-04-17 06:00 | USCV_ITS ---
Becky, Bowie Age: 76 Gender: M : 1945 Exam Date: 04/17/2022 09:03 Ordering Phys: Jonathan Rios MD Technologist: Joey Gaitan Exam Location: [facility] Indication: chest pain chf BP: 145 / 66 HR: 83 Rhythm: Sinus Technical Quality: Adequate MEASUREMENTS (Male / Female) Normal Values 2D ECHO LV Diastolic Diameter PLAX 5.1 cm 4.2 - 5.9 / 3.9 - 5.3 cm LV Systolic Diameter PLAX 2.8 cm IVS Diastolic Thickness 1.3 cm 0.6 - 1.0 / 0.6 - 0.9 cm IVS Systolic Thickness 1.7 cm LVPW Diastolic Thickness 1.2 cm 0.6 - 1.0 / 0.6 - 0.9 cm LVPW Systolic Thickness 1.9 cm LVOT Diameter 2.1 cm LV Ejection Fraction 2D Teich 77.6 % LV Ejection Fraction MOD 2C 62.1 % LV Ejection Fraction 2C AL 62.8 % LA Diameter 5.3 cm IVC Diameter 1.5 cm M-MODE Aortic Annulus Diameter 3.6 cm LA Ao Ratio MM 1.5 MV E Point Septal Separation 1.6 cm DOPPLER AV Peak Velocity 229.0 cm/s LVOT Peak Velocity 109.0 cm/s AV Area Cont Eq vti 1.4 cm squared AV Area Cont Eq pk 1.7 cm squared MV Area PHT 5.0 cm squared Mitral E to A Ratio 1.4 MV E' Velocity 89.5 cm/s Mitral E to MV E' Ratio 34.7 Mitral E to LV E' Lateral Ratio 27.9 Mitral E to LV E' Septal Ratio 46.8 TR Peak Velocity 135.0 cm/s TR Peak Gradient 7.3 mmHg FINDINGS Left Ventricle Left ventricle is normal in size. LV systolic function is normal with EF of 55 to 60%. No regional wall motion abnormalities are seen. Right Ventricle Normal in size and function Right Atrium Normal in size Left Atrium Dilated Mitral Valve Mild mitral annular calcification is seen. Mild mitral regurgitation. Aortic Valve Aortic valve is thickened and calcified. Mild aortic stenosis with aortic valve area of 1.36cm2 and mean gradient across aortic valve of 13.9mmHg. Tricuspid Valve Trace tricuspid regurgitation. Insufficient TR jet to calculate RVSP Pulmonic Valve Not well visualized Pericardium Normal Aorta Normal in size IVC Appears to be normal CONCLUSIONS LV systolic function is normal with EF of 55-60% Left atrial dilation Mild mitral annular calcification. Mild mitral regurgitation Aortic valve is thickened and calcified. Mild aortic stenosis with aortic valve area of 1.36cm2 and mean gradient across aortic valve of 13.9mmHg. Compared to prior echocardiogram from 07/2021, patient now has mild aortic stenosis. Jorge L Velásquez MD (Electronically Signed) Final Date: 17 April 2022 10:46 S
[2022-04-17 06:54] LABS: Glucose Point of Care 225 mg/dL (70-110)
--- NOTE | 2022-04-17 09:14 | PC.PHAR ---
pt states he takes care of his own medications-pt brought in med bottles- [facility]pt states he has novolin 70/30 and uses ss tid prn pt states dr gave him ozempic 0.5mg q7d and states the dr said he could use the novolin 70/30 prn-notes are made in the pharmacy comments
[2022-04-17] MEDS: albuterol 2.5 mg/3 mL Neb INHALATION ×3 (09:18→16:35)
[2022-04-17] MEDS: FUROsemide 10 mg/mL SDV 4mL 40 MG IVP ×2 (10:16→21:20)
[2022-04-17] MEDS: carvedilol 12.5 mg Tablet PO ×2 (10:17→17:21)
[2022-04-17] MEDS: ferrous sulfate EC 325 mg Tablet PO ×2 (10:17→17:21)
[2022-04-17] MEDS: doxycycline 100 mg Tablet PO ×2 (10:17→17:22)
[2022-04-17] MEDS: pantoprazole DR 40 mg Tablet PO (10:18)
[2022-04-17] MEDS: allopurinol 100 mg Tablet 150 MG PO (10:18)
[2022-04-17] MEDS: amlodipine 10 mg Tablet PO (10:18)
[2022-04-17] MEDS: aspirin 81 mg EC Tablet PO (10:18)
[2022-04-17] MEDS: atorvastatin 40 mg Tablet PO (10:19)
[2022-04-17] MEDS: predniSONE 5 mg Tablet PO (10:19)
--- NOTE | 2022-04-17 10:26 | PC.CHAP ---
Pastoral Care Encounter/Spiritual Assessment Type of Contact [] Declined dialysis biomed technician visit [] Patient/Family/Request visit [] Outpatient visit [] Follow-up visit [] Physician referral [] Code/Alert [x] Routine visit [] Staff referral [] Actively dying [] Patient sleeping [] Family support [] [] Out of room [] Palliative care [] [] Receiving care in room [] Pre-surgical visit [] Trauma [] Long length of stay [] ICU visit [] Other: Relational/Emotional Strength [x] Patient feels connected with others/family/visitors/staff [] Distress [] Loneliness/isolation [] Abandonment Spirituality of Patient [x] Person of Amy [x] Attends Roman Catholic of their Amy [x] Believes in Prayer [] Reads Bible or Judaism materials [] There are Spiritual issues to be addressed Pension Consultant Interventions [x] Prayer [x] Active listening [] Non-anxious presence [x] Spiritual/emotional support [] Crisis/trauma care [] Spiritual counseling [] Bereavement support [] Provided bereavement packet [] Provided Bible/devotional materials [] Provided toy/stuffed animal, coloring book to patient or family member [] Provided Communion [] Anointing/[place] [] Salvation [x] Completed spiritual assessment [] Other: Impact on Illness or Injury [] Angry [] Fearful [] Anxious [] Often cries [] Exhaustion [] Unable to work [] Unable to attend baptist [] Unable to walk/stand [] Unable to read [] Unable to drive [] Unable to eat/drink [] Unable to sleep [] Unable to be with family [] Patient intubated [] Other: Summary Time spent with patient 15min
[2022-04-17] MEDS: insulin lispro 100 unit/1 mL SUBCUT ×3 (10:49→17:22)
[2022-04-17 11:57] LABS: Glucose Point of Care 297 mg/dL (70-110)
[2022-04-17 16:58] LABS: Glucose Point of Care 240 mg/dL (70-110)
[2022-04-17 20:52] LABS: Glucose Point of Care 283 mg/dL (70-110)
[2022-04-17] MEDS: enoxaparin 40 mg/0.4 mL Syringe SUBCUT (21:20)
--- NOTE | 2022-04-17 22:12 | P.PN_ITS ---
Subjective Subjective: He is feeling little bit better. Breathing slightly easier. He does not normally use supplemental oxygen. Denies chest pain. Having some cough. No nausea vomiting or diarrhea. Vitals/I&O/Wt Last Vital Signs Temp 98 F 04/17/22 19:41 Pulse 81 04/17/22 20:04 Resp 18 04/17/22 20:04 BP 133/72 04/17/22 19:41 Pulse Ox 93 04/17/22 20:04 O2 Del Method 04/17/22 20:04 O2 Flow Rate 5 04/17/22 20:04 FiO2 5 04/17/22 16:00 04/17/22 04/17/22 04/17/22 06:59 14:59 22:59 Intake Total 360 / 360 600 / 600 240 / 840 Output Total 175 / 175 350 / 350 250 / 600 Balance 185 / 185 250 / 250 -10 / 240 Weight last 48 hrs Weight 121.109 kg Physical Exam Const: COMMON NORMALS: patient oriented x3 and alert GENERAL APPEARANCE: cooperative ORIENTATION/CONSCIOUSNESS: Yes awake HENMT: COMMON NORMALS: oropharynx normal Neck/C-Spine: COMMON NORMALS: no JVD Resp: COMMON NORMALS: normal respiratory effort AUSCULTATION: wheezes and diminished lung sounds Cardio: COMMON NORMALS: no JVD, regular rhythm, S1 normal heart sound present, S2 normal heart sound present and No murmurs present (Cardio) RHYTHM: regular rhythm HEART SOUNDS: S1 normal heart sound present and S2 normal heart sound present GI: COMMON NORMALS: Normal to inspection, nondistended, normoactive bowel sounds present, Soft to palpation and non-tender PALPATION: Yes Soft to palpation Extremity: COMMON NORMALS: no joint enlargement Neuro: COMMON NORMALS: patient oriented x3 and moves all extremities SENSORIUM/ORIENTATION: Yes alert Skin: COMMON NORMALS: no rashes or lesions noted GENERAL SKIN EXAM: no rashes or lesions noted Data 04/17/22 02:08 04/17/22 02:08 Micro: Microbiology 04/16/22 21:53 Gram Stain - Final Sputum - Expectorated Sputum A&P Assessment and plan (1) Acute exacerbation of CHF (congestive heart failure): Continue IV Lasix. Fluid restriction. Cardiac diet. Add intake and output monitoring. Weights. Acute diastolic CHF TTE with normal EF, mild aortic stenosis. (2) Acute respiratory failure with hypoxemia: Acute CHF. Possible bronchitis with wheezing, diminished air entry. Continue albuterol nebs as needed. Add scheduled DuoNeb. Budesonide. Continue doxycycline. (3) CKD (chronic kidney disease) stage 3, GFR 30-59 ml/min: (4) NSTEMI (non-ST elevated myocardial infarction): Plan Chronic kidney disease stage III, at baseline 2.6 monitor as on diuresis as above NSTEMI: Suspect demand ischemia given lack of chest pain. Rather flat troponin trend. TTE with normal EF, no regional WMA. [id number] type 2 diabetes mellitus, low-dose sliding scale Attestations 2 Medical Necessity Statement*: Continue admission for assessment management of hypoxic respiratory failure. Coding Level of Care Code Acute Code for [facility] Diagnoses Acute exacerbation of CHF (congestive heart failure) I50.9 Acute respiratory failure with hypoxemia J96.01 CKD (chronic kidney disease) stage 3, GFR 30-59 ml/min N18.30 NSTEMI (non-ST elevated myocardial infarction) I21.4
[2022-04-18] VITALS (15 sets, daily range): BP systolic 126–149; BP diastolic 68–81; PULSE 69–79; RESP 20–26; TEMP 36.4–36.7; O2SAT 92–97
[2022-04-18 05:59] LABS: Glucose Point of Care 290 mg/dL (70-110)
[2022-04-18 06:23] LABS: Anion Gap 17.3 (5-19); Blood Urea Nitrogen 68 mg/dL (8-23); Calcium 8.6 mg/dL (8.5-10.5); Carbon Dioxide 24 mmol/L (22-29); Chloride 98 mmol/L (98-107); Glucose 281 mg/dL (65-115); Osmolality Calculated 310 mOsm/kg (285-295); Potassium 4.3 mmol/L (3.5-5.1); Sodium 135 mmol/L (136-145)
[2022-04-18] MEDS: budesonide 0.5 mg/2 mL Neb 0.25 MG INHALATION ×2 (08:28→19:31)
[2022-04-18] MEDS: albuterol 2.5 mg/3 mL Neb INHALATION (08:29)
[2022-04-18] MEDS: FUROsemide 10 mg/mL SDV 4mL 40 MG IVP (08:34)
[2022-04-18] MEDS: insulin lispro 100 unit/1 mL SUBCUT ×3 (08:35→17:55)
[2022-04-18] MEDS: doxycycline 100 mg Tablet PO ×2 (08:35→17:54)
[2022-04-18] MEDS: carvedilol 12.5 mg Tablet PO ×2 (08:35→17:54)
[2022-04-18] MEDS: aspirin 81 mg EC Tablet PO (08:35)
[2022-04-18] MEDS: pantoprazole DR 40 mg Tablet PO (08:35)
[2022-04-18] MEDS: allopurinol 100 mg Tablet 150 MG PO (08:35)
[2022-04-18] MEDS: predniSONE 5 mg Tablet PO (08:35)
[2022-04-18] MEDS: amlodipine 10 mg Tablet PO (08:35)
[2022-04-18] MEDS: atorvastatin 40 mg Tablet PO (08:35)
[2022-04-18] MEDS: ferrous sulfate EC 325 mg Tablet PO ×2 (08:36→17:55)
[2022-04-18 11:11] LABS: Glucose Point of Care 182 mg/dL (70-110)
[2022-04-18] MEDS: ipratropium-albuterol 3 mL Neb INHALATION ×2 (14:18→19:32)
[2022-04-18 17:26] LABS: Glucose Point of Care 154 mg/dL (70-110)
--- NOTE | 2022-04-18 21:22 | PM.PN ---
Subjective Subjective: Denies any significant change. Denies any significant improvement. Also still having cough, not bringing up any phlegm. Vitals/I&O/Wt Last Vital Signs Temp 97.6 F 04/18/22 16:00 Pulse 75 04/18/22 19:37 Resp 21 H 04/18/22 19:37 BP 149/73 04/18/22 16:00 Pulse Ox 96 04/18/22 19:37 O2 Del Method 04/18/22 19:37 O2 Flow Rate 4 04/18/22 19:37 FiO2 5 04/18/22 16:00 04/18/22 04/18/22 04/18/22 06:59 14:59 22:59 Intake Total 0 / 960 720 / 720 600 / 1320 Output Total 600 / 1200 Balance -600 / -240 720 / 720 600 / 1320 Weight last 48 hrs Weight 118.444 kg Physical Exam Narrative: Visited by family. Const: COMMON NORMALS: patient oriented x3 and alert GENERAL APPEARANCE: cooperative ORIENTATION/CONSCIOUSNESS: Yes awake HENMT: COMMON NORMALS: oropharynx normal Neck/C-Spine: COMMON NORMALS: no JVD Resp: COMMON NORMALS: normal respiratory effort AUSCULTATION: no wheezes and diminished lung sounds Cardio: COMMON NORMALS: no JVD, regular rhythm, S1 normal heart sound present, S2 normal heart sound present and No murmurs present (Cardio) RHYTHM: regular rhythm HEART SOUNDS: S1 normal heart sound present and S2 normal heart sound present GI: COMMON NORMALS: Normal to inspection, nondistended, normoactive bowel sounds present, Soft to palpation and non-tender PALPATION: Yes Soft to palpation Extremity: COMMON NORMALS: no joint enlargement GENERAL: Yes edema Neuro: COMMON NORMALS: patient oriented x3 and moves all extremities SENSORIUM/ORIENTATION: Yes alert Skin: COMMON NORMALS: no rashes or lesions noted GENERAL SKIN EXAM: no rashes or lesions noted Data 04/17/22 02:08 04/18/22 04:29 Micro: Microbiology 04/16/22 21:53 Gram Stain - Final Sputum - Expectorated Sputum Sputum Culture - Preliminary A&P Assessment and plan (1) Acute exacerbation of CHF (congestive heart failure): Increase Lasix dose to 60 mg every 12 hours. Continue fluid restriction. Cardiac diet. Add intake and output monitoring. Weights. Acute diastolic CHF TTE with normal EF, mild aortic stenosis. (2) Acute respiratory failure with hypoxemia: Acute CHF. Possible bronchitis with wheezing, diminished air entry. Continue albuterol nebs as needed. Continue scheduled DuoNeb. Budesonide. Continue doxycycline. (3) CKD (chronic kidney disease) stage 3, GFR 30-59 ml/min: (4) NSTEMI (non-ST elevated myocardial infarction): Plan Chronic kidney disease stage III, at baseline 2.6 monitor as on diuresis as above NSTEMI: Suspect demand ischemia given lack of chest pain. Rather flat troponin trend. TTE with normal EF, no regional WMA. Mox-qzbsfak-vpblgyjgp type 2 diabetes mellitus, low-dose sliding scale Attestations Medical Necessity Statement*: Continue admission for management of acute CHF with hypoxic respiratory failure. Coding Level of Care Code Acute Code for [facility] Diagnoses Acute exacerbation of CHF (congestive heart failure) I50.9 Acute respiratory failure with hypoxemia J96.01 CKD (chronic kidney disease) stage 3, GFR 30-59 ml/min N18.30 NSTEMI (non-ST elevated myocardial infarction) I21.4
[2022-04-18] MEDS: FUROsemide 10 mg/mL SDV 4mL 60 MG IVP (21:28)
[2022-04-18] MEDS: enoxaparin 40 mg/0.4 mL Syringe SUBCUT (21:29)
[2022-04-18 22:07] LABS: Glucose Point of Care 208 mg/dL (70-110)
[2022-04-19] VITALS (12 sets, daily range): BP systolic 133–154; BP diastolic 69–77; PULSE 69–82; RESP 14–22; TEMP 36.4–36.7; O2SAT 92–96
[2022-04-19 06:01] LABS: Anion Gap 16.9 (5-19); Blood Urea Nitrogen 72 mg/dL (8-23); Carbon Dioxide 25 mmol/L (22-29); Chloride 98 mmol/L (98-107); Glucose 179 mg/dL (65-115); Osmolality Calculated 308 mOsm/kg (285-295); Potassium 3.9 mmol/L (3.5-5.1); Sodium 136 mmol/L (136-145)
[2022-04-19 06:56] LABS: Glucose Point of Care 176 mg/dL (70-110)
--- NOTE | 2022-04-19 08:19 | XR_ITS ---
WS: [id number] PORTABLE CHEST HISTORY: hypoxia follow up COMPARISON: 04/16/2022 Moderate pulmonary hyperexpansion. Changes of emphysema and mild fluid overload. Small bilateral pleu ral effusions are new since the prior examination. Compressive atelectasis at the lung bases. Areas o f consolidation, greatest at the RIGHT may be atelectasis or developing pneumonia. Cardiac size: Mildly enlarged cardiac silhouette. Prior CABG. Mediastinum/Aorta: Mild atherosclerosis aorta. No osseous abnormality seen. XR/XR chest 1V portable [id number] IMPRESSION: 1. Interval development of small bilateral pleural effusions and CHF. 2. Mild cardiomegaly. 3. Dense consolidation RIGHT lung base may be atelectasis. Pneumonia may appea r similar. 4. Prior CABG.
[2022-04-19] MEDS: budesonide 0.5 mg/2 mL Neb 0.25 MG INHALATION (08:28)
[2022-04-19] MEDS: doxycycline 100 mg Tablet PO ×2 (09:02→17:56)
[2022-04-19] MEDS: carvedilol 12.5 mg Tablet PO ×2 (09:02→17:56)
[2022-04-19] MEDS: ferrous sulfate EC 325 mg Tablet PO ×2 (09:03→17:56)
[2022-04-19] MEDS: atorvastatin 40 mg Tablet PO (09:03)
[2022-04-19] MEDS: predniSONE 5 mg Tablet PO (09:03)
[2022-04-19] MEDS: allopurinol 100 mg Tablet 150 MG PO (09:03)
[2022-04-19] MEDS: pantoprazole DR 40 mg Tablet PO (09:04)
[2022-04-19] MEDS: insulin lispro 100 unit/1 mL SUBCUT ×3 (09:04→17:56)
--- NOTE | 2022-04-19 09:06 | PC.SOCIAL ---
IMM Update pg 2 of IMM updated and reviewed w/ patient. Copy provided and Copy dated, initialed placed in chart.
[2022-04-19] MEDS: aspirin 81 mg EC Tablet PO (09:07)
[2022-04-19] MEDS: amlodipine 10 mg Tablet PO (09:07)
[2022-04-19] MEDS: ipratropium-albuterol 3 mL Neb INHALATION ×2 (09:28→14:01)
[2022-04-19] MEDS: FUROsemide 10 mg/mL SDV 4mL 60 MG IVP ×2 (10:47→19:32)
[2022-04-19 11:41] LABS: Glucose Point of Care 332 mg/dL (70-110)
[2022-04-19 17:04] LABS: Glucose Point of Care 262 mg/dL (70-110)
[2022-04-19] MEDS: enoxaparin 40 mg/0.4 mL Syringe SUBCUT (19:32)
[2022-04-19 20:34] LABS: Glucose Point of Care 261 mg/dL (70-110)
[2022-04-20] VITALS (15 sets, daily range): BP systolic 127–139; BP diastolic 62–73; PULSE 70–78; RESP 14–28; TEMP 36.5–36.8; O2SAT 86–96
[2022-04-20] MEDS: ipratropium-albuterol 3 mL Neb INHALATION ×3 (02:49→14:15)
[2022-04-20 04:21] LABS: Anion Gap 16.9 (5-19); Blood Urea Nitrogen 71 mg/dL (8-23); Carbon Dioxide 25 mmol/L (22-29); Chloride 100 mmol/L (98-107); Glucose 187 mg/dL (65-115); Osmolality Calculated 312 mOsm/kg (285-295); Potassium 3.9 mmol/L (3.5-5.1); Sodium 138 mmol/L (136-145)
[2022-04-20 06:14] LABS: Glucose Point of Care 216 mg/dL (70-110)
[2022-04-20] MEDS: insulin lispro 100 unit/1 mL SUBCUT ×3 (07:32→17:11)
[2022-04-20] MEDS: carvedilol 12.5 mg Tablet PO ×2 (08:45→17:10)
[2022-04-20] MEDS: pantoprazole DR 40 mg Tablet PO (08:46)
[2022-04-20] MEDS: amlodipine 10 mg Tablet PO (08:46)
[2022-04-20] MEDS: predniSONE 5 mg Tablet PO (08:46)
[2022-04-20] MEDS: doxycycline 100 mg Tablet PO ×2 (08:47→17:10)
[2022-04-20] MEDS: atorvastatin 40 mg Tablet PO (08:48)
[2022-04-20] MEDS: allopurinol 100 mg Tablet 150 MG PO (08:48)
[2022-04-20] MEDS: ferrous sulfate EC 325 mg Tablet PO ×2 (08:48→17:11)
[2022-04-20] MEDS: aspirin 81 mg EC Tablet PO (08:48)
[2022-04-20] MEDS: FUROsemide 10 mg/mL SDV 4mL 60 MG IVP ×2 (08:49→20:23)
[2022-04-20] MEDS: budesonide 0.5 mg/2 mL Neb 0.25 MG INHALATION (08:50)
--- NOTE | 2022-04-20 08:55 | PC.NURSE ---
Patient reeducated about 1000mL fluid restriction and the patient stated there is a faucet right there and I know how to turn it on.
[2022-04-20 11:51] LABS: Glucose Point of Care 213 mg/dL (70-110)
[2022-04-20 16:40] LABS: Glucose Point of Care 243 mg/dL (70-110)
[2022-04-20] MEDS: enoxaparin 40 mg/0.4 mL Syringe SUBCUT (20:23)
[2022-04-20 21:07] LABS: Glucose Point of Care 228 mg/dL (70-110)
--- NOTE | 2022-04-20 21:29 | P.PN_ITS ---
Subjective Subjective: He is overall improving. Ambulated well in the hallway today. Still requiring oxygen, but oxygen need is continue to gradually decrease. Down to 2 L nasal cannula. Denies chest pain. Reports is being bothered by sciatic pain. Vitals/I&O/Wt Last Vital Signs Temp 98.2 F 04/20/22 19:20 Pulse 76 04/20/22 19:20 Resp 15 04/20/22 19:20 BP 131/73 04/20/22 19:20 Pulse Ox 94 04/20/22 19:20 O2 Del Method 04/20/22 19:20 O2 Flow Rate 2 04/20/22 19:20 FiO2 5 04/18/22 16:00 04/20/22 04/20/22 04/20/22 06:59 14:59 22:59 Intake Total 1080 / 1080 240 / 1320 Output Total 1400 / 3325 Balance -1400 / -2485 1080 / 1080 240 / 1320 Weight last 48 hrs Weight 119.068 kg Weight 117.169 kg Physical Exam Narrative: Visited by family. Const: COMMON NORMALS: patient oriented x3 and alert GENERAL APPEARANCE: cooperative ORIENTATION/CONSCIOUSNESS: Yes awake HENMT: COMMON NORMALS: oropharynx normal Neck/C-Spine: COMMON NORMALS: no JVD Resp: COMMON NORMALS: normal respiratory effort and clear to auscultation bilaterally AUSCULTATION: clear to auscultation bilaterally and diminished lung sounds Cardio: COMMON NORMALS: no JVD, regular rhythm, S1 normal heart sound present, S2 normal heart sound present and No murmurs present (Cardio) RHYTHM: regular rhythm HEART SOUNDS: S1 normal heart sound present and S2 normal heart sound present GI: COMMON NORMALS: Normal to inspection, nondistended, normoactive bowel sounds present, Soft to palpation and non-tender PALPATION: Yes Soft to palpation Extremity: COMMON NORMALS: no joint enlargement GENERAL: Yes edema Neuro: COMMON NORMALS: patient oriented x3 and moves all extremities SENSORIUM/ORIENTATION: Yes alert Skin: COMMON NORMALS: no rashes or lesions noted GENERAL SKIN EXAM: no rashes or lesions noted Data 04/17/22 02:08 04/20/22 01:49 A&P Assessment and plan (1) Acute exacerbation of CHF (congestive heart failure): Continues to gradually improve. Borderline renal function. But appears to be responding to diuretics so far at least clinically/symptomatically. Continue gentle diuresis. Increase Lasix dose to 60 mg every 12 hours. Continue fluid restriction. Cardiac diet. Add intake and output monitoring. Weights. Acute diastolic CHF TTE with normal EF, mild aortic stenosis. (2) Acute respiratory failure with hypoxemia: Acute CHF. Possible bronchitis Now improving with wheezing Resolved, diminished air entry. Continue albuterol nebs as needed. Continue scheduled DuoNeb. Budesonide. Continue doxycycline. (3) CKD (chronic kidney disease) stage 3, GFR 30-59 ml/min: (4) NSTEMI (non-ST elevated myocardial infarction): (5) Meralgia paresthetica: Reports sciatic pain, but distribution does not correspond to lumbosacral radiculopathy. Appears more likely meralgia paresthetica. Plan Chronic kidney disease stage III, at baseline 2.6 monitor as on diuresis as above NSTEMI: Suspect demand ischemia given lack of chest pain. Rather flat troponin trend. TTE with normal EF, no regional WMA. [id number]-yvumvbvhf type 2 diabetes mellitus, low-dose sliding scale Attestations Medical Necessity Statement*: Continue admission for management of decompensated CHF and a gentleman with CKD, poor renal response to diuresis. Coding Level of Care Code Acute Code for [facility] Diagnoses Acute exacerbation of CHF (congestive heart failure) I50.9 Acute respiratory failure with hypoxemia J96.01 CKD (chronic kidney disease) stage 3, GFR 30-59 ml/min N18.30 NSTEMI (non-ST elevated myocardial infarction) I21.4 Meralgia paresthetica G57.10
[2022-04-21] VITALS (9 sets, daily range): BP systolic 132–164; BP diastolic 64–101; PULSE 70–82; RESP 16–23; TEMP 36.4–36.9; O2SAT 95–98
[2022-04-21] MEDS: ipratropium-albuterol 3 mL Neb INHALATION ×3 (03:18→13:28)
[2022-04-21 04:54] LABS: Anion Gap 16.1 (5-19); Blood Urea Nitrogen 64 mg/dL (8-23); Calcium 8.1 mg/dL (8.5-10.5); Carbon Dioxide 25 mmol/L (22-29); Chloride 100 mmol/L (98-107); Glucose 178 mg/dL (65-115); Osmolality Calculated 307 mOsm/kg (285-295); Potassium 4.1 mmol/L (3.5-5.1); Sodium 137 mmol/L (136-145)
[2022-04-21 06:52] LABS: Glucose Point of Care 177 mg/dL (70-110)
[2022-04-21] MEDS: insulin lispro 100 unit/1 mL SUBCUT (07:47)
[2022-04-21] MEDS: FUROsemide 10 mg/mL SDV 4mL 60 MG IVP (08:42)
[2022-04-21] MEDS: carvedilol 12.5 mg Tablet PO (08:43)
[2022-04-21] MEDS: ferrous sulfate EC 325 mg Tablet PO (08:43)
[2022-04-21] MEDS: aspirin 81 mg EC Tablet PO (08:43)
[2022-04-21] MEDS: predniSONE 5 mg Tablet PO (08:43)
[2022-04-21] MEDS: amlodipine 10 mg Tablet PO (08:43)
[2022-04-21] MEDS: pantoprazole DR 40 mg Tablet PO (08:43)
[2022-04-21] MEDS: allopurinol 100 mg Tablet 150 MG PO (08:43)
[2022-04-21] MEDS: doxycycline 100 mg Tablet PO (08:43)
[2022-04-21] MEDS: atorvastatin 40 mg Tablet PO (08:43)
[2022-04-21] MEDS: budesonide 0.5 mg/2 mL Neb 0.25 MG INHALATION (08:49)
--- NOTE | 2022-04-21 11:26 | PC.SOCIAL ---
IMM Update pg 2 of IMM updated and reviewed w/ patient. Copy provided and Copy in chart dated, and initialed.
[2022-04-21 11:30] LABS: Glucose Point of Care 228 mg/dL (70-110)
--- NOTE | 2022-04-21 12:46 | PM.DCS ---
Discharge Providers Date of Admission: 04/16/22 22:26 Date of Discharge: April 21, 2022 Attending Provider at Admission: Jonathan Rios MD Attending Provider at Discharge: Vishal Augustine Primary Care Provider: Gretchen Ridley MD Diagnoses at Discharge Discharge Diagnosis (1) Acute exacerbation of CHF (congestive heart failure): Status: Acute (2) Acute respiratory failure with hypoxemia: Status: Acute (3) CKD (chronic kidney disease) stage 3, GFR 30-59 ml/min: Status: Acute (4) NSTEMI (non-ST elevated myocardial infarction): Status: Acute (5) Meralgia paresthetica: Status: Acute Reason for Visit [facility] Hospital Course Pleasant 76-year-old gentleman with history of CAD, CVD, CKD, HTN, HLD, anemia, DM2, psoriasis on chronic prednisone, was admitted due to acute respiratory failure with hypoxia with CHF exacerbation, on presentation with moderate elevation of troponin as well, without suggestion of acute MA, remained chest pain-free. Likely type II MA with demand ischemia secondary to respiratory failure. Assessment with echocardiogram revealed normal ejection fraction, no regional wall motion Romanus, mild aortic stenosis with thickened and calcified aortic valve. He was treated with IV Lasix with gradual improvement in hypoxia and volume status. Diuresis made difficult by chronic kidney disease with some worsening in BUN and transiently mild worsening of creatinine but this now has been improving. With possible component of acute bronchitis was also treated with albuterol and steroid nebs and completed a short course of doxycycline. His oxygenation has gradually improved. Air entry significantly improved. Edema continues to subside. He is now down to needing 2 L of oxygen with nasal cannula. Ambulating well, feels much better and feels ready to return home. He is set up with home oxygen at discharge. At discharge we will switch diuretic to Bumex. Indicated on discharge paperwork to stop torsemide. Due to CKD he is asked to avoid any NSAIDs. Physical Exam Const: COMMON NORMALS: patient oriented x3 and alert GENERAL APPEARANCE: cooperative ORIENTATION/CONSCIOUSNESS: Yes awake HENMT: COMMON NORMALS: oropharynx normal Neck/C-Spine: COMMON NORMALS: no JVD Resp: COMMON NORMALS: normal respiratory effort and clear to auscultation bilaterally AUSCULTATION: clear to auscultation bilaterally Cardio: COMMON NORMALS: no JVD, regular rhythm, S1 normal heart sound present, S2 normal heart sound present and No murmurs present (Cardio) RHYTHM: regular rhythm HEART SOUNDS: S1 normal heart sound present and S2 normal heart sound present GI: COMMON NORMALS: Normal to inspection, nondistended, normoactive bowel sounds present, Soft to palpation and non-tender PALPATION: Yes Soft to palpation Extremity: COMMON NORMALS: no joint enlargement and no pedal edema GENERAL: Yes edema (1+) Neuro: COMMON NORMALS: patient oriented x3 and moves all extremities SENSORIUM/ORIENTATION: Yes alert Skin: COMMON NORMALS: no rashes or lesions noted GENERAL SKIN EXAM: no rashes or lesions noted Discharge Data Studies Completed and Pending Completed Studies During Hospitalization Category Date Time Status CXRP [XR chest 1V portable [id number]] Routine Exams 04/19/22 08:19 Completed XR chest 1V portable [id number] Stat Exams 04/16/22 17:55 Completed CV. echo complete* [id number] Routine Ultrasound 04/17/22 06:00 Completed Pending at discharge Category Date Time Status Basic Metabolic Panel AM LABS Lab 04/22/22 04:00 Ordered Basic Metabolic Panel AM LABS Lab 04/23/22 04:00 Ordered Radiology Impressions Chest X-Ray 04/19/22 08:19 IMPRESSION: 1. Interval development of small bilateral pleural effusions and CHF. 2. Mild cardiomegaly. 3. Dense consolidation RIGHT lung base may be atelectasis. Pneumonia may appear similar. 4. Prior CABG. Laboratory Results WBC 6.6 10^3/uL (4.0-10.0) 04/17/22 02:08 RBC 3.31 10^6/uL (4.1-5.3) L 04/17/22 02:08 Hgb 10.1 g/dL (11.7-16.6) L 04/17/22 02:08 Hct 29.8 % (42.0-52.0) L 04/17/22 02:08 MCV 90.0 fl (80-94) 04/17/22 02:08 MCH 30.5 pg (28.0-34.0) 04/17/22 02:08 MCHC 33.9 g/dL (30.0-36.0) 04/17/22 02:08 RDW 13.9 % (12.1-15.1) 04/17/22 02:08 Plt Count 184 10^3/cmm (130-400) 04/17/22 02:08 MPV 10.4 fL (7.4-10.4) 04/17/22 02:08 Neut % (Auto) 93.2 % 04/17/22 02:08 Lymph % (Auto) 5.0 % 04/17/22 02:08 [place] % (Auto) 0.8 % 04/17/22 02:08 Eos % (Auto) 0.0 % 04/17/22 02:08 Baso % (Auto) 0.2 % 04/17/22 02:08 Neut # (Auto) 6.16 10^3/uL (1.8-7.7) 04/17/22 02:08 Lymph # (Auto) 0.3 10^3/uL (0.8-4.8) L 04/17/22 02:08 [place] # (Auto) 0.1 10^3/uL (0.2-0.9) L 04/17/22 02:08 Eos # (Auto) 0.0 10^3/uL (0.0-0.8) 04/17/22 02:08 Baso # (Auto) 0.0 10^3/uL (0.0-0.1) 04/17/22 02:08 Nucleated RBC % (auto) 0 % 04/17/22 02:08 Nucleated RBCs # 0.0 /100WBC 04/17/22 02:08 PT 15.60 SECONDS (12.1-14.9) H 04/16/22 18:10 INR 1.21 (0.8-1.2) H 04/16/22 18:10 Specimen Type Arterial 04/16/22 20:50 Sample Site Radial, right 04/16/22 20:50 ABG pH 7.42 (7.35-7.45) 04/16/22 20:50 ABG pCO2 38.3 mmHg (35-45) 04/16/22 20:50 ABG pO2 57.8 mmHg (80.0-100.0) L 04/16/22 20:50 ABG HCO3 25.1 mmol/L (22-26) 04/16/22 20:50 ABG Base Excess 0.7 mmol/L (-2.0-2.0) 04/16/22 20:50 Heriberto Test Pos 04/16/22 20:50 Hematocrit 33.0 % (42-52) L 04/16/22 20:50 O2 Delivery Device Nc 04/16/22 20:50 O2 Liters/Min 4.0 % 04/16/22 20:50 Engineering Psychologist ID [email or web address] 04/16/22 20:50 Sodium 137 mmol/L (136-145) 04/21/22 04:03 Potassium 4.1 mmol/L (3.5-5.1) 04/21/22 04:03 Chloride 100 mmol/L (98-107) 04/21/22 04:03 Carbon Dioxide 25 mmol/L (22-29) 04/21/22 04:03 Anion Gap 16.1 (5-19) 04/21/22 04:03 BUN 64 mg/dL (8-23) H 04/21/22 04:03 Creatinine 2.3 mg/dL (0.7-1.2) H 04/21/22 04:03 GFR Calculation Not Reportable 04/21/22 04:03 Glucose 178 mg/dL (65-115) H 04/21/22 04:03 POC Glucose 228 mg/dL (70-110) H 04/21/22 11:21 Estimat Average Glucose 166 04/16/22 18:10 Hemoglobin A1c 7.4 % (4.0-6.0) H 04/16/22 18:10 Calculated Osmolality 307 mOsm/kg (285-295) H 04/21/22 04:03 Calcium 8.1 mg/dL (8.5-10.5) L 04/21/22 04:03 Magnesium 2.2 mg/dL (1.7-2.3) 04/16/22 19:26 Total Bilirubin 1.4 mg/dL (0.15-1.2) H 04/16/22 18:10 AST 23 U/L (0-40) 04/16/22 18:10 ALT 14 U/L (0-41) 04/16/22 18:10 Alkaline Phosphatase 127 U/L (40-130) 04/16/22 18:10 Troponin T Baseline 91 ng/L (0-15) H 04/16/22 18:10 Troponin T 120 Minute 86.74 ng/L (0-15) H 04/16/22 19:26 Delta Troponin T -4.26 ABS# (0-10) L 04/16/22 19:26 Troponin T Hi Sens 6Hr 78.01 ng/L (0-15) H 04/17/22 02:08 Troponin T Hi Sens 6Hr Delta -12.99 ng/L (0-12) L 04/17/22 02:08 C-Reactive Protein 52.6 mg/L (0.0-4.9) H 04/16/22 18:10 NT-Pro-B Natriuret Pep 3742 pg/mL (0-450) H 04/17/22 02:08 Total Protein 7.4 g/dL (6.6-8.7) 04/16/22 18:10 Albumin 4.0 g/dL (3.5-5.2) 04/16/22 18:10 Globulin 3.4 g/dL (1.3-4.6) 04/16/22 18:10 Triglycerides 123 mg/dL (0-150) 04/16/22 18:10 Cholesterol 91 mg/dL (0-200) 04/16/22 18:10 LDL Cholesterol, Calc 41 mg/dL (50-129) L 04/16/22 18:10 HDL Cholesterol 25 mg/dL (60-100) L 04/16/22 18:10 LDL/HDL Ratio 1.64 RATIO (0.00-3.22) 04/16/22 18:10 Cholesterol/HDL Ratio 3.64 mg/dL (1.0-5.00) 04/16/22 18:10 Procalcitonin 0.17 ng/mL (0-0.5) 04/16/22 18:10 TSH 6.59 uIU/mL (0.27-4.20) H 04/16/22 18:10 Influenza Type A Ag negative (Negative) 04/16/22 18:10 Influenza Type B Ag negative (Negative) 04/16/22 18:10 SARS-CoV-2 Ag (Rapid) negative (Negative) 04/16/22 18:10 Vitals Last Vital Signs Temp 98.4 F 04/21/22 11:05 Pulse 77 04/21/22 11:05 Resp 18 04/21/22 11:05 BP 141/69 04/21/22 12:03 Pulse Ox 95 04/21/22 11:05 O2 Del Method 04/21/22 08:51 O2 Flow Rate 2 04/21/22 08:51 FiO2 5 04/18/22 16:00 Discharge Plan Discharge Patient Disposition: Home Condition: Stable Prescriptions: New bumetanide 1 mg tablet 2 mg PO DAILY Qty: 90 0RF Continued capsaicin 0.075 % cream 1 applic topical PRN PRN (Reason: Pain) Rx Instructions: do not wash area for at least 30 min after application clobetasol [Clobex] 0.05 % spray,non-aerosol 1 applic topical PRN PRN (Reason: Skin Irritation) Rx Instructions: not to exceed 26 sprays per single application alogliptin 6.25 mg tablet 6.25 mg PO DAILY aspirin [Adult Low Dose Aspirin] 81 mg tablet,delayed release (DR/EC) 81 mg PO DAILY cholecalciferol (vitamin D3) 25 mcg (1,000 unit) capsule 75 mcg PO DAILY pantoprazole 40 mg tablet,delayed release (DR/EC) 40 mg PO QAM carvedilol 25 mg tablet 12.5 mg PO BID Rx Instructions: must administer with a meal/food allopurinol 100 mg tablet 150 mg PO DAILY amlodipine 10 mg tablet 10 mg PO DAILY 90 Days Qty: 90 3RF prednisone 5 mg tablet 5 mg PO DAILY Qty: 20 0RF calcipotriene 0.005 % cream 1 applic topical DAILY PRN (Reason: per md orders) Rx Instructions: rub in gently and completely alternate every other day with betamethasone betamethasone dipropionate 0.05 % ointment 1 applic topical BID PRN (Reason: per md orders) Rx Instructions: Apply to affected area on buttocks twice daily for 3 weeks then switch to calcipotriene Ozempic 0.25 mg or 0.5 mg(2 mg/1.5 mL) Pen Injector 0.5 mg SUBCUT Q7D Rx Instructions: on sat Lipitor 80 mg Tablet 40 mg PO DAILY omega-3 fatty acids 1,000 mg Capsule 2,000 mg PO BID Novolin 70/30 U-100 Insulin 100 unit/mL (70-30) Suspension See Rx Instructions .ROUTE .COMPLEX Rx Instructions: sliding scale subcutaneously tid as needed for high blood sugar iron 325 mg (65 mg iron) Tablet 325 mg PO BID ketoconazole 2 % Cream 1 applic TOPICAL BID PRN (Reason: red scaly areas on face) glucose 4 gram Tablet,Chewable 4 g PO Q15M PRN (Reason: LOW BLOOD SUGAR) Rx Instructions: until symptoms of low blood sugar are controlled fluticasone propion-salmeterol 100-50 mcg/dose Blister With Device 1 inh INHALATION BID PRN (Reason: unknown) albuterol sulfate 90 mcg/actuation Hfa Aerosol Inhaler 2 puff INHALATION QID PRN (Reason: Shortness Of Breath) Discontinued diclofenac sodium [Arthritis Pain (diclofenac)] 1 % gel 2 - 4 g topical QID PRN (Reason: Pain) Rx Instructions: apply to single elbow, wrist or hand; for hand includes palm/fingers/back of hand torsemide 20 mg tablet 40 mg PO BID Discharge Orders: Discharge Order (Routine); Ordered 04/21/22 Ordered By: Vishal Augustine Other Ambulatory Orders: DME: Oxygen (Order) Location: None Selected Ordered By: Vishal Augustine Referrals: Gretchen Ridley MD [Primary Care Provider] - 4-7 days (Please call Dr. Ridley's Office at [phone] on Sunday to schedule a follow up appointment for 4-7 days. Thank you.) Discharge Diet: Cardiac Discharge Activity: Increase activity as tolerated and Oxygen as instructed Patient Instructions: Heart Failure (DC), Opioid Safety Activity Restrictions/Additional Instructions: Continue to limit sodium intake. Follow-up with your primary doctor and oil field technician for reassessment. Your primary doctor reassess your kidney function as well due to chronic kidney disease. Diuretics at home. Monitor your weights daily. Please avoid any NSAIDs including diclofenac gel. Avoid wearing tight fitting clothing or restrictive belts as your pain in the sides of your legs may be due to meralgia paresthetica. Discuss further with your primary doctor. Discharge Attestations Time Spent in Discharge Care*: greater than 30 min Quality Metrics Clinical Quality Measures [ No reported AMI, CVA or VTE this stay] Coding Level of Care Code Acute Chg FW DC note Diagnoses Acute exacerbation of CHF (congestive heart failure) I50.9 Acute respiratory failure with hypoxemia J96.01 CKD (chronic kidney disease) stage 3, GFR 30-59 ml/min N18.30 NSTEMI (non-ST elevated myocardial infarction) I21.4 Meralgia paresthetica G57.10
== END 2022-04-21 13:57 | disposition home health service (06) | DRG 280 ==
LOC: ER 20:28 → CSU 22:59
PROVIDERS: Admitting Provider Family Medicine; Emergency Provider Emergency Medicine; PCP Family Medicine; Visit Provider Internal Medicine
DX: I13.0 Hypertensive heart and chronic kidney disease with heart failure and stage 1 through stage 4 chronic kidney disease, or unspecified chronic kidney disease (principal); I50.31 Acute diastolic (congestive) heart failure; I21.A1 Myocardial infarction type 2; J96.01 Acute respiratory failure with hypoxia; N18.30 Chronic kidney disease, stage 3 unspecified; E11.22 Type 2 diabetes mellitus with diabetic chronic kidney disease; E11.40 Type 2 diabetes mellitus with diabetic neuropathy, unspecified; E11.21 Type 2 diabetes mellitus with diabetic nephropathy; G57.10 Meralgia paresthetica, unspecified lower limb; I25.10 Atherosclerotic heart disease of native coronary artery without angina pectoris; Z95.1 Presence of aortocoronary bypass graft; E78.5 Hyperlipidemia, unspecified; D63.1 Anemia in chronic kidney disease; Z79.52 Long term (current) use of systemic steroids; L40.9 Psoriasis, unspecified; J20.9 Acute bronchitis, unspecified; Z79.82 Long term (current) use of aspirin; Z79.51 Long term (current) use of inhaled steroids; Z79.4 Long term (current) use of insulin; I35.1 Nonrheumatic aortic (valve) insufficiency; M54.50 Low back pain, unspecified; Z96.653 Presence of artificial knee joint, bilateral
CPT/HCPCS: 36415; 36416; 36600; 71045; 80048; 80053; 80061; 82803; 82962; 83036; 83735; 83880; 84145; 84443; 84484; 85025; 85610; 86140; 87070; 87205; 87426; 87804; 93005; 93306; 94640; 94664; 94760; 96372; 96374; 96375; 97110; 97116; 97161; 97165; 97530; 99285; J1650; J1815; J1940; J2930; J7512; J7613; J7626

== ENCOUNTER 2022-05-05 12:28 | Outpatient (CLI) | payer OTHER, SELFPAY ==
--- NOTE | 2022-05-05 11:45 | MR_ITS ---
WS: [id number] MRI LUMBAR SPINE NONCONTRAST HISTORY: pain COMPARISON: None available. TECHNIQUE: Sagittal and axial multisequence imaging is submitted. Mild cervical stenosis at C3-4, C4-5 and C5-6. Straightening of the normal lumbar lordosis. Small amount of reactive marrow edema in the L3 and L4 v ertebral bodies. Mild disc desiccation throughout the lumbar spine. There are large anterior osteophytes throughout th e lumbar spine. The disc space at L5-S1 is narrowed and obliterated. Conus terminates normally at L1-2 disc level. L1-L2: Diffuse annular disc bulging. Marked ligamentum flavum and facet arthritis. Very mild foramina l stenosis. L2-L3: Annular disc bulging. Mild bilateral foraminal stenosis. L3-L4: Severe central stenosis. There is marked ligamentum flavum hypertrophy and facet joint arthrit is encroaching into the thecal sac. Complete effacement of CSF. Severe central, bilateral subarticula r recess and moderate foraminal stenosis. Fluid in the facet joints. There is also mild synovitis randa rounding the facet joints with fluid and edema extending along the paraspinal muscles greatest on the RIGHT. L4-L5: Diffuse annular disc bulging. Marked ligamentum flavum and facet arthritis. Moderate to severe central, bilateral subarticular recess and moderate foraminal stenosis. Soft tissue edema extends al floresita the RIGHT paravertebral soft tissue muscles. L5-S1: No central stenosis. Mild osteophytic ridging contributing to only mild foraminal narrowing. Ectatic abdominal aorta and iliac arteries. MR/MR lumbar spine wo con* [id number] IMPRESSION: 1. Severe central and bilateral subarticular recess stenosis with moderate for aminal stenosis at L3-4. Complete effacement of CSF with encroachment most sign ificant upon the central canal and traversing L4 nerve roots. 2. Moderate to severe central and bilateral subarticular recess and moderate f oraminal stenosis at L4-5. 3. Paravertebral soft tissue edema at the L3-4 and L4-5 but greatest along the RIGHT posterior paraspinal muscles.
== END 2022-05-05 12:29 | disposition home or self-care (01) ==
LOC: RAD 12:30
PROVIDERS: PCP Family Medicine; Visit Provider Orthopaedic Surgery
DX: M54.50 Low back pain, unspecified (principal)
CPT/HCPCS: 72148

== ENCOUNTER → 2022-05-11 10:50 | Outpatient (BNVA) | payer OTHER, SELFPAY | PROVIDERS: PCP Family Medicine; Visit Provider Orthopaedic Surgery | DX: M48.062 Spinal stenosis, lumbar region with neurogenic claudication (principal) | CPT/HCPCS: 99214 ==

== ENCOUNTER → 2022-05-25 11:14 | Outpatient (BNVA) | payer OTHER, SELFPAY | PROVIDERS: PCP Family Medicine; Visit Provider Podiatrist Foot & Ankle Surgery | DX: E11.8 Type 2 diabetes mellitus with unspecified complications (principal); E11.22 Type 2 diabetes mellitus with diabetic chronic kidney disease; N18.30 Chronic kidney disease, stage 3 unspecified; E11.42 Type 2 diabetes mellitus with diabetic polyneuropathy; L60.3 Nail dystrophy; Z79.4 Long term (current) use of insulin | CPT/HCPCS: 11720; 11730; 73630; 87070; 87075; 87077; 87186; 87205 ==

== ENCOUNTER 2022-05-26 06:00 | Outpatient (CLI) | payer OTHER, SELFPAY | END 2022-05-26 06:01 | disposition home or self-care (01) | LOC: LAB 06-04 22:01 | PROVIDERS: PCP Family Medicine; Visit Provider Anesthesiology | DX: Z01.812 Encounter for preprocedural laboratory examination (principal); I10 Essential (primary) hypertension; E11.9 Type 2 diabetes mellitus without complications; Z79.899 Other long term (current) drug therapy | CPT/HCPCS: 80048; 85025 ==

== ENCOUNTER 2022-06-02 13:24 | Inpatient (IN) | payer OTHER, SELFPAY ==
[2022-05-26 10:17] VITALS: BMI 33.3
--- NOTE | 2022-05-26 10:35 | P.ANESASSM_ITS ---
Pre-Anesthetic Assessment Height/Weight: Height 1.88 m Weight 117.934 kg Preop Diagnosis: Right suboccipital neck mass Operation Date: 06/02/22 07:00 Proposed Procedures p Lumbar Spine Decompression:L3/4 L4/5 33105,90770,M48.062(Not Applicable) - Kirill Magallon DO Familial anesthetic complications: None Social No alcohol and No tobacco Exam alert, oriented x 3, clear to auscultation bilaterally and regular rate & rhythm Airway Dentition: partials Comments: Comments: Neck CT 2021 Normal posterior nasopharynx. Normal parapharyngeal fat. Normal palatine tonsils. No evidence of supraglottic or glottic mass. Normal subglottic airway. Normal epiglottis and piriform sinuses. Normal thyroid tissue. Aortic calcification. Prior sternotomy. Submandibular glands are normal. Parotid glands are normal. CV/HEM Coronary Artery Disease (CABG 2018), Congestive Heart Failure, Hypertension and Myocardial Infarction Recent CHF exacerbation resonded to lasix No subsequent SOB, CP, Syncope echo 04/24 CONCLUSIONS ?LV systolic function is normal with EF of 55-60% ?Left atrial dilation ?Mild mitral annular calcification. Mild mitral regurgitation ?Aortic valve is thickened and calcified. Mild aortic stenosis ?with aortic valve area of 1.36cm2 and mean gradient across ?aortic valve of 13.9mmHg. ?Compared to prior echocardiogram from 07/2021, patient now has ?mild aortic stenosis Chronic Renal Insufficiency GI Gastroesophageal Reflux Disease Metabolic Diabetes Mellitus and Hyperlipidemia Anesthetic Plan ASA status: 4 Anesthesia: General Risk of > 500 ml blood loss (7ml/kg in children): No Medications/Allergies Home Medications Medication Instructions Recorded Confirmed Last Taken Type aspirin 81 mg tablet,delayed 81 mg PO DAILY 10/12/20 05/26/22 05/24/22 History release (Adult Low Dose Aspirin) cholecalciferol (vitamin D3) 25 75 mcg PO DAILY 10/12/20 05/26/22 05/26/22 History mcg (1,000 unit) capsule pantoprazole 40 mg tablet,delayed 40 mg PO QAM 10/12/20 05/26/22 05/26/22 History release alogliptin 6.25 mg tablet 6.25 mg PO DAILY 04/19/21 05/26/22 05/26/22 History capsaicin 0.075 % topical cream 1 applic topical PRN PRN Pain 04/19/21 05/26/22 10/12/21 History carvedilol 25 mg tablet 12.5 mg PO BID 04/19/21 05/26/22 05/26/22 History clobetasol 0.05 % topical spray 1 applic topical PRN PRN Skin 04/19/21 05/26/22 10/12/21 History (Clobex) Irritation allopurinol 100 mg tablet 150 mg PO DAILY 06/17/21 05/26/22 05/26/22 History amlodipine 10 mg tablet 10 mg PO DAILY 90 days #90 tabs 06/20/21 05/26/22 05/26/22 Rx albuterol sulfate 90 mcg/actuation 2 puff inhalation QID PRN 09/08/21 05/26/22 10/06/21 History aerosol inhaler Shortness Of Breath fluticasone 100 mcg-salmeterol 50 1 inh inhalation BID PRN unknown 09/08/21 05/26/22 05/26/22 History mcg/dose blistr powdr for inhalation glucose 4 gram chewable tablet 4 g PO Q15M PRN LOW BLOOD SUGAR 09/08/21 05/26/22 10/12/21 History prednisone 5 mg tablet 5 mg PO DAILY #20 tabs 10/14/21 05/26/22 05/26/22 Rx betamethasone dipropionate 0.05 % 1 applic topical BID PRN per md 04/16/22 05/26/22 Unknown History topical ointment orders calcipotriene 0.005 % topical cream 1 applic topical DAILY PRN per md 04/16/22 05/26/22 Unknown History orders semaglutide 0.25 mg or 0.5 mg (2 0.5 mg SUBCUT Q7D 04/16/22 05/26/22 05/20/22 History mg/1.5 mL) subcutaneous pen injector (Ozempic) atorvastatin 80 mg tablet (Lipitor) 40 mg PO DAILY 04/17/22 05/26/22 05/26/22 History ferrous sulfate 325 mg (65 mg 325 mg PO BID 04/17/22 05/26/22 05/26/22 History iron) tablet (iron) insulin human U-100 NPH-regulr See Rx Instructions .Route .COMPLEX 04/17/22 05/26/22 05/25/22 History 70-30 mix 100 unit/mL subcutaneous susp (Novolin 70/30 U-100 Insulin) ketoconazole 2 % topical cream 1 applic topical BID PRN red scaly 04/17/22 05/26/22 05/26/22 History areas on face omega-3 fatty acids 1,000 mg 2,000 mg PO BID 04/17/22 05/26/22 05/26/22 History capsule bumetanide 1 mg tablet 2 mg PO DAILY #90 tabs 04/21/22 05/26/22 05/26/22 Rx doxycycline hyclate 100 mg capsule 100 mg PO BID #21 caps 05/25/22 05/26/22 05/26/22 Rx mupirocin 2 % topical ointment 1 applic topical BID #22 grams 05/25/22 05/26/22 05/26/22 Rx Allergies Allergy/AdvReac Type Severity Reaction Status Date / Time sulfamethoxazole Allergy Mild Rash Verified 05/11/22 11:08 [From Bactrim] trimethoprim [From Bactrim] Allergy Mild Rash Verified 05/11/22 11:08 niacin Allergy Unknown Verified 05/11/22 11:08 [facility] Anesthesia Medical History Aortic cusp regurgitation Aortic regurgitation CAD (coronary artery disease) CKD (chronic kidney disease) stage 3, GFR 30-59 ml/min Controlled diabetes mellitus with diabetic nephropathy Diverticulosis Gout, unspecified Hyperlipidemia Hypertension Lower back pain Male circumcision Psoriasis Surgical History History of back surgery History of bilateral knee replacement History of colonoscopy (07/15/21) History of partial colectomy History of total left knee replacement had a partial prior to total Hx of CABG Hx of cholecystectomy Hx of neck surgery removal of mass Hx of rotator cuff surgery Right Family History Grandmother Diabetes Stroke Hypertension Mother Diabetes Hypertension Father Heart attack Denies family history of Rheumatoid arthritis Lupus Clotting disorder Hyperlipidemia Anesthesia complication Bleeding disorder Cancer Social History Smoking and tobacco status: never smoked Alcohol intake: never Data Anesthesia Cardiac Studies: Echocardiogram 04/17/22
[2022-05-26 10:43] LABS: Basophils # 0.1 10^3/uL (0.0-0.1); Basophils % 0.7 %; Eosinophils # 0.2 10^3/uL (0.0-0.8); Eosinophils % 2.6 %; Hematocrit 34.1 % (42.0-52.0); Hemoglobin 11.4 g/dL (11.7-16.6); Lymphocytes # 1.3 10^3/uL (0.8-4.8); Lymphocytes % 14.7 %; Mean Corpuscular HGB Conc 33.4 g/dL (30.0-36.0); Mean Corpuscular Hemoglobin 29.7 pg (28.0-34.0); Mean Corpuscular Volume 88.8 fl (80-94); Mean Platelet Volume 9.9 fL (7.4-10.4); Monocytes # 0.7 10^3/uL (0.2-0.9); Monocytes % 7.6 %; Neutrophils # 6.56 10^3/uL (1.8-7.7); Neutrophils % 73.8 %; Nucleated Red Blood Cells % 0 %; Platelet Count 147 10^3/cmm (130-400); Red Blood Count 3.84 10^6/uL (4.1-5.3); Red Cell Distribution Width 14.4 % (12.1-15.1); White Blood Count 8.9 10^3/uL (4.0-10.0)
[2022-05-26 10:55] LABS: Anion Gap 16.2 (5-19); Blood Urea Nitrogen 27 mg/dL (8-23); Calcium 8.3 mg/dL (8.5-10.5); Carbon Dioxide 24 mmol/L (22-29); Chloride 103 mmol/L (98-107); Glucose 179 mg/dL (65-115); Osmolality Calculated 298 mOsm/kg (285-295); Potassium 4.2 mmol/L (3.5-5.1); Sodium 139 mmol/L (136-145)
[2022-06-02] VITALS (21 sets, daily range): BP systolic 120–164; BP diastolic 64–91; PULSE 63–76; RESP 12–21; TEMP 36.1–36.6; O2SAT 91–100
--- NOTE | 2022-06-02 10:54 | W.PM.OPSUD ---
Surgery/Procedure H&P Update DATE OF PROCEDURE: June 02, 2022 DATE H&P PERFORMED: 05/11/22 H&P UPDATE INFORMATION: I have reviewed H&P completed within last 30 days, I have examined patient prior to procedure and No changes to prior documentation PREOP DIAGNOSIS: Lumbar stenosis with neurogenic claudication, L5-S1 fusion PLANNED PROCEDURE: Operation Date: 06/02/22 12:20 Proposed Procedures p Open Lumbar Spine Decompression:L3/4 L4/5 92248,68248,M48.062(Not Applicable) - Kirill Magallon DO
[2022-06-02] MEDS: sodium chloride 0.9% 1,000 ML 30 ML IV (10:55)
[2022-06-02 11:01] LABS: Glucose Point of Care 169 mg/dL (70-110)
[2022-06-02] MEDS: ceFAZolin 2,000 MG in sodium chloride 0.9% (plus) 50 ML 100 MG IV ×2 (11:44→19:47)
[2022-06-02] MEDS: lidocaine-epi 1% 20 mL INJ INJECTION (12:12)
--- NOTE | 2022-06-02 12:13 | P.ANESUD_ITS ---
Pre-Anesthetic Update Pre-Anesthetic Assessment: Date of Surgery/Procedure: 06/02/22 Preop Belen gnosis: Lumbar stenosis with neurogenic claudication, L5-S1 fusion Proposed Procedure: Operation Date: 06/02/22 12:20 Proposed Procedures p Open Lumbar Spine Decompression:L3/4 L4/5 18432,42195,M48.062(Not Applicable) - Kirill Magallon, DO Any changes to Pre-Anesthetic Assessment?: No Last Intake: Intake Last Liquid Date 06/01/22 Last Liquid Time 18:30 Last Solid Date 06/01/22 Last Solid Time 18:30 Vitals: Temperature 97.3 F L 06/02/22 10:52 Temperature Source Temporal Artery S can 06/02/22 10:52 Pulse Rate 76 06/02/22 10:52 Respiratory Rate 16 06/02/22 10:52 Blood Pressure 164/91 06/02/22 10:52 Blood Pressure Florecita n 115 06/02/22 10:52 Pulse Oximetry 97 06/02/22 10:52 Oxygen Delivery Me thod 06/02/22 10:53 Exam: Pre-Anes Outpt Exam: alert, oriented x 3, clear to auscultation b ilaterally and regular rate & rhythm Cardiac Studies: Echocardiogram 04/17/22
[2022-06-02] MEDS: vancomycin 1,000 MG SDV 1000 MG XX (12:49)
--- NOTE | 2022-06-02 13:29 | XR_ITS ---
WS: [id number] XR lumbar spine 1V [id number] REASON FOR EXAM: OR PICS FINDINGS: Surgical device overlying the midline overlying the inferior aspect of the fourth lumbar vertebra rig ht. XR/XR lumbar spine 1V [id number] IMPRESSION: Lumbar localization in surgery as above.
--- NOTE | 2022-06-02 14:08 | PM.OP ---
Operative Report Date of procedure: June 02, 2022 Pre-op diagnosis: Preop Diagnosis 1. Lumbar stenosis with neurogenic claudication, 2. Cyst 3mm x 2.5mm Post-op diagnosis: same Procedure done: 1. L3/4 laminectomy with partial facetectomy 2. L4/5 Laminectomy with partial factectomy 3. Excision of 3mm x 2.5mm Surgeon: Kirill Magallon [employer] Mechanic: none Estimated blood loss (mL): 150 Procedure: 1. L3/4 laminectomy with partial facetectomy 2. L4/5 Laminectomy with partial factectomy 3. Excision of 3mm x 2.5mm Patient was brought to the operative suite after undergoing anesthesia was placed in the prone position. All areas impingement were well-padded. Skin incision made using part of the previous incision as well extending up superiorly. This was identified over the L3-4 and L4-5 disc base. Skin incision was made down subperiosteal dissection was made out to the facets of L3-4 and L4-5. Retractors were placed. Spinous process was taken down with a rongeur. Of L5 partially and L3 and L4. The lamina of L4 was identified high-speed bur was used to take down the lamina as well as the area where the medial facet of facet joints curved curette used to undermine the lamina as well as ligamentum flavum. The ligamentum flavum was severely thick. The L5 nerve was traced from the L5 pedicle of the L4 nerve traced out the foramen. Extension was brought to the L3 lamina laminectomy was performed using high-speed bur Curettes and Kerrison rongeurs. The medial facets were taken down using high-speed bur curved curettes. The implant was extremely thick taken out from L3-L4. Once the dura was exposed had some of the ligamentum flavum and actually scarred down to it. However wounds were irrigated and wound was closed in layered fashion with 0 Vicryl 2-0 Vicryl and Monocryl suture. Extension was brought to cyst this is about a 3 x 2 5.5 mm cyst superior to the incision on the patient's back. This was ellipsed out deep down to the thoracolumbar fascia. Once the cyst was excised wound was irrigated and then closed in layered fashion with 0 Vicryl 2-0 Vicryl in and nylon suture. Sterile dressings were applied patient was transferred to the PACU in stable condition.
[2022-06-02] MEDS: fentaNYL 50 mcg/mL INJ 2mL IVP (14:27)
[2022-06-02] MEDS: HYDROmorphone 1 mg/mL INJ 1 mL 0.5 MG IVP ×2 (14:33→14:39)
[2022-06-02] MEDS: lactated ringers 1,000 ML 90 ML IV (15:37)
--- NOTE | 2022-06-02 15:50 | ANE.PACU2 ---
Inpatient post-anesthesia follow up: Airway intact: Yes Vital signs: Temperature 97.0 F Pulse Rate 64 Respiratory Rate 18 Blood Pressure 138/67 Pulse Oximetry 95 Oxygen Delivery Me thod Nasal Cannula Oxygen Flow Rate 2 Fraction of Inspir ed Oxygen Hydration adequate: Yes Nausea and vomiting: No Pain level: 3 Mental status: Baseline
[2022-06-02 16:49] LABS: Glucose Point of Care 238 mg/dL (70-110)
[2022-06-02] MEDS: omega-3 fatty acids 1,000 mg Capsule 2000 MG PO (17:35)
[2022-06-02] MEDS: docusate sodium 100 mg Capsule PO (17:36)
[2022-06-02] MEDS: HYDROcodone-acetaminophen 10-325 mg Tablet PO (17:36)
[2022-06-02] MEDS: ferrous sulfate EC 325 mg Tablet PO (17:36)
[2022-06-02] MEDS: carvedilol 12.5 mg Tablet PO (17:37)
[2022-06-02] MEDS: doxycycline 100 mg Tablet PO (17:37)
[2022-06-02] MEDS: acetaminophen 325 mg Tablet 650 MG PO (19:47)
[2022-06-03] MEDS: HYDROcodone-acetaminophen 10-325 mg Tablet PO ×2 (00:04→06:29)
--- NOTE | 2022-06-03 00:38 | PC.NURSE ---
DURING NURSING SHIFT ASSESSMENT PT WAS FOUND TO HAVE 3+ PITTING EDEMA TO BLE WELL CRACKLES TO BILATERAL LUNG BASES, DR PRATHER NOTIFIED AND TELEPHONE READBACK ORDER CONFIRMED TO DC FLUIDS. PT DRSG WAS ALSO FOUND TO BE SATURATED WITH BLOOD AND GAVE INSTRUCTION FOR THIS NURSE TO CHANGE DRSG.
[2022-06-03] MEDS: ceFAZolin 2,000 MG in sodium chloride 0.9% (plus) 50 ML 100 MG IV (03:24)
--- NOTE | 2022-06-03 03:25 | PC.NURSE ---
DRSG ON PATIENT WAS CHANGED PER DR PRATHER. VERY SLOW ACTIVE BLEEDING AT SUPERIOR PORTION OF THE INCISION SITE SEEN, WITH LARGE POOLING OF GAB BLOOD ON THE INFERIOR PORTION OF THE SURGICAL BANDAGE. DRSG HAS BEEN MONITORED, WITH INCREASING AMOUNTS OF THE NEW DRSG NOTED TO HAVE BLOODY DRAINAGE, ALL CIRCLED AND MARKED WITH THE TIME. NONE NOTED IN HEMOVAC DRAIN. DR PRATHER WAS CONTACTED IN REGARD TO EXTENT OF THE BLEEDING WELL CONCERN OVER PATIENT INABILITY TO VOID. PATIENT STATED IT HAD BEEN 18 HOURS SINCE LAST VOID. BLADDER WAS SCANNED AND SHOWED GREATER THAN 587 ML IN BLADDER. ORDER TO STRAIGHT CATH THE PATIENT WAS OBTAINED AND ORDER TO REINFORCE DRSG AND CONTINUE TO MONITOR. STRAIGHT CATH OF PATIENT GAVE A RETURN OF 775 ML DARK YELLOW CONCENTRATED URINE. PATIENT TOLERATED WELL. WILL CONTINUE TO MONITOR PATIENT
[2022-06-03 03:58] VITALS: BP 127/67; PULSE 72; RESP 16; TEMP 36.5; O2SAT 94
[2022-06-03] MEDS: pantoprazole DR 40 mg Tablet PO (05:46)
[2022-06-03 08:00] VITALS: BP 124/80; PULSE 72; RESP 17; RESP 18; TEMP 36.7; O2SAT 95; O2SAT 97
--- NOTE | 2022-06-03 08:31 | PM.DCS ---
Discharge Providers Date of Admission: 06/02/22 13:24 Date of Discharge: June 03, 2022 Attending Provider at Admission: Kirill Magallon DO Attending Provider at Discharge: Kirill Magallon DO Primary Care Provider: Gretchen Ridley MD Reason for Visit Reason for Visit: L3/4 L4/5 Lumbar decomp [id number],M48.062 Hospital Course Hospital Course Patient dressing was saturated this morning. We removed it pulled the drain and will place a new dressing with ABDs. Physical Exam Narrative: Wound was evaluated and changed. Discharge Data Studies Completed and Pending Completed Studies During Hospitalization Category Date Time Status XR lumbar spine 1V [id number] Routine Exams 06/02/22 13:29 Completed Pending at discharge Category Date Time Status C-arm Fluoroscopy [id number] Routine Exams 06/02/22 10:26 Taken Radiology Impressions Lumbar Spine X-Ray 06/02/22 13:29 IMPRESSION: Lumbar localization in surgery as above. Laboratory Results WBC 8.9 10^3/uL (4.0-10.0) 05/26/22 10:26 RBC 3.84 10^6/uL (4.1-5.3) L 05/26/22 10:26 Hgb 11.4 g/dL (11.7-16.6) L 05/26/22 10:26 Hct 34.1 % (42.0-52.0) L 05/26/22 10:26 MCV 88.8 fl (80-94) 05/26/22 10:26 MCH 29.7 pg (28.0-34.0) 05/26/22 10: MCHC 33.4 g/dL (30.0-36.0) 05/26/22 10:26 RDW 14.4 % (12.1-15.1) 05/26/22 10:26 Plt Count 147 10^3/cmm (130-400) 05/26/22 10: MPV 9.9 fL (7.4-10.4) 05/26/22 10:26 Neut % (Auto) 73.8 % 05/26/22 10:26 Lymph % (Auto) 14.7 % 05/26/22 10:26 [place] % (Auto) 7.6 % 05/26/22 10:26 Eos % (Auto) 2.6 % 05/26/22 10:26 Baso % (Auto) 0.7 % 05/26/22 10: Neut # (Auto) 6.56 10^3/uL (1.8-7.7) 05/26/22 10: Lymph # (Auto) 1.3 10^3/uL (0.8-4.8) 05/26/22 10: [place] # (Auto) 0.7 10^3/uL (0.2-0.9) 05/26/22 10: Eos # (Auto) 0.2 10^3/uL (0.0-0.8) 05/26/22 10: Baso # (Auto) 0.1 10^3/uL (0.0-0.1) 05/26/22 10: Nucleated RBC % (auto) 0 % 05/26/22 10: Nucleated RBCs # 0.0 /100WBC 05/26/22 10:26 Sodium 139 mmol/L (136-145) 05/26/22 10:26 Potassium 4.2 mmol/L (3.5-5.1) 05/26/22 10:26 Chloride 103 mmol/L (98-107) 05/26/22 10:26 Carbon Dioxide 24 mmol/L (22-29) 05/26/22 10:26 Anion Gap 16.2 (5-19) 05/26/22 10:26 BUN 27 mg/dL (8-23) H 05/26/22 10:26 Creatinine 1.9 mg/dL (0.7-1.2) H 05/26/22 10:26 GFR Calculation Not Reportable 05/26/22 10:26 Glucose 179 mg/dL (65-115) H 05/26/22 10:26 POC Glucose 238 mg/dL (70-110) H 06/02/22 16:45 Calculated Osmolality 298 mOsm/kg (285-295) H 05/26/22 10:26 Calcium 8.3 mg/dL (8.5-10.5) L 05/26/22 10:26 Vitals Last Vital Signs Temp 98.0 F 06/03/22 08:00 Pulse 72 06/03/22 08:00 Resp 17 06/03/22 08:00 BP 124/80 06/03/22 08:00 Pulse Ox 97 06/03/22 08:00 O2 Del Method 06/03/22 08:00 O2 Flow Rate 2 06/02/22 20:05 Discharge Plan Discharge Patient Disposition: Home Condition: Stable Prescriptions: New hydrocodone-acetaminophen 10-325 mg tablet 1 tab PO Q4H PRN (Reason: pain) 7 Days Qty: 40 0RF No Action capsaicin 0.075 % cream 1 applic topical PRN PRN (Reason: Pain) Rx Instructions: do not wash area for at least 30 min after application clobetasol [Clobex] 0.05 % spray,non-aerosol 1 applic topical PRN PRN (Reason: Skin Irritation) Rx Instructions: not to exceed 26 sprays per single application alogliptin 6.25 mg tablet 6.25 mg PO DAILY aspirin [Adult Low Dose Aspirin] 81 mg tablet,delayed release (DR/EC) 81 mg PO DAILY cholecalciferol (vitamin D3) 25 mcg (1,000 unit) capsule 75 mcg PO DAILY pantoprazole 40 mg tablet,delayed release (DR/EC) 40 mg PO QAM carvedilol 25 mg tablet 12.5 mg PO BID Rx Instructions: must administer with a meal/food allopurinol 100 mg tablet 150 mg PO DAILY amlodipine 10 mg tablet 10 mg PO DAILY 90 Days Qty: 90 3RF mupirocin 2 % ointment 1 applic topical BID Qty: 22 0RF doxycycline hyclate 100 mg capsule 100 mg PO BID Qty: 21 0RF prednisone 5 mg tablet 5 mg PO DAILY Qty: 20 0RF hydrocodone-acetaminophen 5-325 mg tablet 1 tab PO Q4H PRN (Reason: pain) 7 Days Qty: 40 0RF calcipotriene 0.005 % cream 1 applic topical DAILY PRN (Reason: per md orders) Rx Instructions: rub in gently and completely alternate every other day with betamethasone betamethasone dipropionate 0.05 % ointment 1 applic topical BID PRN (Reason: per md orders) Rx Instructions: Apply to affected area on buttocks twice daily for 3 weeks then switch to calcipotriene Ozempic 0.25 mg or 0.5 mg(2 mg/1.5 mL) Pen Injector 0.5 mg SUBCUT Q7D Rx Instructions: on sat atorvastatin [Lipitor] 80 mg Tablet 40 mg PO DAILY omega-3 fatty acids 1,000 mg Capsule 2,000 mg PO BID Novolin 70/30 U-100 Insulin 100 unit/mL (70-30) Suspension See Rx Instructions .ROUTE .COMPLEX Rx Instructions: sliding scale subcutaneously tid as needed for high blood sugar ferrous sulfate [iron] 325 mg (65 mg iron) Tablet 325 mg PO BID ketoconazole 2 % Cream 1 applic TOPICAL BID PRN (Reason: red scaly areas on face) bumetanide 1 mg tablet 2 mg PO DAILY Qty: 90 0RF glucose 4 gram Tablet,Chewable 4 g PO Q15M PRN (Reason: LOW BLOOD SUGAR) Rx Instructions: until symptoms of low blood sugar are controlled fluticasone propion-salmeterol 100-50 mcg/dose Blister With Device 1 inh INHALATION BID PRN (Reason: unknown) albuterol sulfate 90 mcg/actuation Hfa Aerosol Inhaler 2 puff INHALATION QID PRN (Reason: Shortness Of Breath) Discharge Orders: Discharge Order (Routine); Ordered 06/03/22 Ordered By: Kirill Magallon Discharge Diet: Advance as tolerated Discharge Activity: Limit activity as instructed Patient Instructions: Opioid Safety Activity Restrictions/Additional Instructions: Thank you for [facility] for your care! The following is a list of instructions, from your provider, to follow upon your discharge to ensure you have the optimal recovery from your recent injury orsurgery. Follow-up care is a perry part of your treatment and safety. Be sure to make and go to all appointments, and call your doctor if you are having problems. If you do not already have a follow-up appointment made, call Dr. Magallon office in the next 1-3 days to make follow up appointment for 1 weeks at [phone]. It is also a good idea to know your test results and keep a list of the medicines you take. Medications will be prescribed for you at your provider's discretion. These medications are to be used as instructed; if they are taken more often that prescribed they will not be refilled early and in most cases will not be refilled at all. > When a refill is needed,you should contact nisreen 2-3 business days before your prescription runs out. Medications will NOT be refilled by design sales consultant providers after hours! > Many pain medications contain Tylenol (Acetaminophen). Do not consume more than 4,000 mg of Tylenol per day in total with any combination ofmedications. > Pain medications can cause constipation. Please use an over the counter stool softener as directed, while taking pain medications. Consulty our local pharmacist with questions or recommendations on stool softeners. If constipation persists, contact our office or your primary care provider. > While under our care,you are not to receive pain medications or other controlled substances from any other provider unless our office is notified and approves. Any attempts to do so will result in refusal to prescribe any further pain medications and possible dismissal from our practice. ? Your wound and/or dressing should remain clean and dry for 2 days after surgery. On postoperative day 2 (48 hours after your surgery) the dressing (if present) should be removed and it is okay to shower and get the incision wet. Pad dry afterwards. No further dressing should be required from that point on. Do not put any creams or ointments on theincision > It is normal for there to be a small amount of discharge (bloody or blood tinged) present from a surgical wound for the first 1-3days. > The wound should be examined twice a day for signs of infection. Mild redness or bruising is to be expected but indications that an infection maybe starting would include; An increase in redness, swelling, or discharge, a foul odor present around the incision, and/or a fever greater than 101 ?F ? Showering is permitted, however we ask that you do not take a bath, sit in a whirlpool / Jacuzzi, or go swimming for 1 month. For only the first 2 days after surgery, lt wilt be necessary for you to cover your wound/dressing with plastic and tape to keep it dry. ? Walking is essential for the healing process after surgery. We would like you to slowly advance your walking. This should be done on relatively flat clear ground (inside or out) or can be done on a treadmill. Remember this goal does not have to happen all at once, slowly increase your distance and duration. This can be broken into more more than one walk per day as tolerated. Patients who walk as directed after surgery rarely require Physical Therapy. In the unlikely event this issue arises your provider will direct hospital staff to make the appropriate arrangements. ? No lifting over 5 pounds {a gallon of milk) or bending/twisting until further notice. Each of these activities places an unnecessary amount of stress onto the body and can impede the delicate healing process. > Instead of bending at the waist, keep your back straight and bend at the knees. > Instead of twisting your torso, keep your back straight and turn your entire body with your feet. ? You may sleep in any position which makes you comfortable. Many patients find comfort sleeping in a reclining chair. It is not abnormal to have difficulty sleeping for the first several weeks following your surgery. We recommend trying Benadry! or Tylenol PM as directed to help with your sleeping difficulties. Both medications are over the counter and available withoutprescription. ? NO SMOKING!!! Smoking dramatically increases the probability of developing postoperative wound infections. ? Common complaints after lumbar and/or thoracic spine surgery include, but are not limited to: numbness and/or tingling in the legs, pain around the incision and surrounding tissues, muscle spasms, or stiffness of the middle to low back. Contact our office if these symptoms persist or if an acute change occurs. ? No driving for the first 3-5days, and not while taking narcotics until seen at your follow-up appointment and cleared. There are no restrictions for riding on short trips, however if you take a longer trip, arrangements should be made to make regular stops to get out of the vehicle and stretch . ? Swelling is an unfortunate event that will take place with any surgery and is the primary source of your postoperative discomfort. While walking and regular approved activities helps control inflammation, there are additional steps you can take to minimizeswelling. > Place ice over the surgical site and surrounding tissue for twenty minutes, followed by applying a low/medium heat (heating pad) for an additional twenty minutes every 1-2 hours as needed for painrelief. > You may use of over the counter anti-inflammatory medications (Ibuprofen, Motrin, Aleve, Advil, etc) as directed on the package label. These types of medicines wm significantly reduce the amount of discomfort you experience after surgery from swelling. It should be noted that if you have and allergy to any of these medications, or a history of ulcers or kidney disease you should consult you primary care provider prior to starting these medications. Discharge Attestations Time Spent in Discharge Care*: less than 30 min Quality Metrics Clinical Quality Measures [ No reported AMI, CVA or VTE this stay] Coding Level of Care Code Acute Code for Chg Alessia
[2022-06-03] MEDS: allopurinol 100 mg Tablet 150 MG PO (10:08)
[2022-06-03] MEDS: cholecalciferol (vitamin D3) 1,000 unit Tablet 3000 UNIT PO (10:08)
[2022-06-03] MEDS: doxycycline 100 mg Tablet PO (10:09)
[2022-06-03] MEDS: omega-3 fatty acids 1,000 mg Capsule 2000 MG PO (10:10)
[2022-06-03] MEDS: predniSONE 5 mg Tablet PO (10:10)
[2022-06-03] MEDS: bumetanide 1 mg Tablet 2 MG PO (10:11)
[2022-06-03] MEDS: atorvastatin 40 mg Tablet PO (10:11)
[2022-06-03] MEDS: aspirin 81 mg EC Tablet PO (10:11)
[2022-06-03] MEDS: carvedilol 12.5 mg Tablet PO (10:11)
[2022-06-03] MEDS: ferrous sulfate EC 325 mg Tablet PO (10:11)
[2022-06-03] MEDS: docusate sodium 100 mg Capsule PO (10:12)
[2022-06-03 15:00] VITALS: BP 124/80; PULSE 72; RESP 17; TEMP 36.7; O2SAT 97
== END 2022-06-03 12:50 | disposition home or self-care (01) | DRG 517 ==
LOC: MEDSURG 13:24
PROVIDERS: Anesthesiology; Admitting Provider Orthopaedic Surgery; PCP Family Medicine; Visit Provider Orthopaedic Surgery
PROC: 01NB0ZZ Release Lumbar Nerve, Open Approach (ICD-10-PCS; CPT 63005; principal; 2022-06-02 12:10)
DX: M48.062 Spinal stenosis, lumbar region with neurogenic claudication (principal); Z79.82 Long term (current) use of aspirin; Z79.891 Long term (current) use of opiate analgesic; Z79.4 Long term (current) use of insulin; Z79.51 Long term (current) use of inhaled steroids; I35.1 Nonrheumatic aortic (valve) insufficiency; I25.10 Atherosclerotic heart disease of native coronary artery without angina pectoris; Z95.1 Presence of aortocoronary bypass graft; I12.9 Hypertensive chronic kidney disease with stage 1 through stage 4 chronic kidney disease, or unspecified chronic kidney disease; E11.22 Type 2 diabetes mellitus with diabetic chronic kidney disease; N18.30 Chronic kidney disease, stage 3 unspecified; E11.21 Type 2 diabetes mellitus with diabetic nephropathy; K57.90 Diverticulosis of intestine, part unspecified, without perforation or abscess without bleeding; M10.9 Gout, unspecified; Z98.1 Arthrodesis status; Z90.49 Acquired absence of other specified parts of digestive tract; Z96.653 Presence of artificial knee joint, bilateral; L40.9 Psoriasis, unspecified; E78.5 Hyperlipidemia, unspecified; B43.2 Subcutaneous pheomycotic abscess and cyst
CPT/HCPCS: 36415; 36416; 72020; 76000; 80048; 82962; 85025; 97116; 97161; 97530; J0330; J0690; J1100; J1170; J2405; J2704; J2710; J3010; J3370; J3490; J7030; J7120; J7512; P9045

== ENCOUNTER → 2022-06-07 09:34 | Outpatient (BNVA) | payer OTHER, SELFPAY | PROVIDERS: PCP Family Medicine; Visit Provider Podiatrist Foot & Ankle Surgery | DX: E11.22 Type 2 diabetes mellitus with diabetic chronic kidney disease (principal); Z79.4 Long term (current) use of insulin; N18.30 Chronic kidney disease, stage 3 unspecified; E11.42 Type 2 diabetes mellitus with diabetic polyneuropathy; L60.3 Nail dystrophy | CPT/HCPCS: 99214 ==

== ENCOUNTER → 2022-06-13 10:55 | Outpatient (BNVA) | payer OTHER, SELFPAY | PROVIDERS: PCP Family Medicine; Visit Provider Internal Medicine Cardiovascular Disease | DX: I25.10 Atherosclerotic heart disease of native coronary artery without angina pectoris (principal); I35.0 Nonrheumatic aortic (valve) stenosis; E11.42 Type 2 diabetes mellitus with diabetic polyneuropathy; E78.5 Hyperlipidemia, unspecified; R60.0 Localized edema; I12.9 Hypertensive chronic kidney disease with stage 1 through stage 4 chronic kidney disease, or unspecified chronic kidney disease; E11.22 Type 2 diabetes mellitus with diabetic chronic kidney disease; N18.30 Chronic kidney disease, stage 3 unspecified; Z79.4 Long term (current) use of insulin | CPT/HCPCS: 99214 ==

== ENCOUNTER → 2022-06-15 12:30 | Outpatient (BNVA) | payer OTHER, SELFPAY | PROVIDERS: PCP Family Medicine; Visit Provider Physician Assistant | DX: Z98.890 Other specified postprocedural states (principal) | CPT/HCPCS: 99024 ==

== ENCOUNTER → 2022-07-13 12:37 | Outpatient (BNVA) | payer OTHER, SELFPAY | PROVIDERS: PCP Family Medicine; Visit Provider Physician Assistant | DX: Z98.890 Other specified postprocedural states (principal) | CPT/HCPCS: 99024 ==

== ENCOUNTER → 2022-07-19 10:58 | Outpatient (BNVA) | payer OTHER, SELFPAY | PROVIDERS: PCP Family Medicine; Visit Provider Podiatrist Foot & Ankle Surgery | DX: E11.22 Type 2 diabetes mellitus with diabetic chronic kidney disease (principal); N18.30 Chronic kidney disease, stage 3 unspecified; E11.42 Type 2 diabetes mellitus with diabetic polyneuropathy; M21.41 Flat foot [pes planus] (acquired), right foot; M21.42 Flat foot [pes planus] (acquired), left foot; Z79.4 Long term (current) use of insulin | CPT/HCPCS: 99214 ==

== ENCOUNTER → 2022-08-24 12:08 | Outpatient (BNVA) | payer OTHER, SELFPAY | PROVIDERS: PCP Family Medicine; Visit Provider Physician Assistant | DX: Z98.890 Other specified postprocedural states (principal) | CPT/HCPCS: 99024 ==

== ENCOUNTER 2022-09-15 13:28 | Outpatient (CLI) | payer OTHER, SELFPAY ==
--- NOTE | 2022-09-15 13:36 | MR_ITS ---
WS: [id number] EXAMINATION: MR hip RT wo con* [id number] ORDER DATE: 09/15/2022 1:47 PM COMPARISON: None. HISTORY: R HIP OSTEOARTHRITIS CONTRAST: None. TECHNIQUE: Coronal STIR of the Pelvis. Coronal proton density, coronal T1, axial T2 fat sat, axial T1 , sagittal T2 fat sat, and sagittal T1 performed of the hip. After contrast, axial T1 fat sat, coron al T1 fat sat, and sagittal T1 fat sat were performed. FINDINGS: Advanced osteoarthritis RIGHT hip. Joint space narrowing. No significant subchondral edema. No acute fractures RIGHT hip. Moderate degenerative arthritis LEFT hip. No edema. Normal visualized pubic rami. Moderate degenerati ve arthritis sacroiliac joints bilaterally. Normal Sacral ala. No sacral insufficiency fractures. Fat -containing LEFT inguinal hernia. MR/MR hip RT wo con* [id number] IMPRESSION: 1. Moderate to advanced osteoarthritis RIGHT hip with joint space narrowing. N o significant subchondral edema. No avascular necrosis. 2. Normal visualized pubic rami. 3. Moderate degenerative arthritis sacroiliac joints. No edema. 4. No sacral insufficiency fractures. 5. Fat-containing LEFT inguinal hernia.
== END 2022-09-15 13:29 | disposition home or self-care (01) ==
LOC: RAD 13:30
PROVIDERS: PCP Family Medicine; Visit Provider Orthopaedic Surgery
DX: M16.11 Unilateral primary osteoarthritis, right hip (principal); M47.898 Other spondylosis, sacral and sacrococcygeal region
CPT/HCPCS: 73721

== ENCOUNTER → 2022-10-12 11:26 | Outpatient (BNVA) | payer OTHER, SELFPAY | PROVIDERS: PCP Family Medicine; Visit Provider Podiatrist Foot & Ankle Surgery | DX: E11.8 Type 2 diabetes mellitus with unspecified complications (principal); L84 Corns and callosities; L60.3 Nail dystrophy; E11.42 Type 2 diabetes mellitus with diabetic polyneuropathy; M21.41 Flat foot [pes planus] (acquired), right foot; M21.42 Flat foot [pes planus] (acquired), left foot; R60.0 Localized edema; N18.30 Chronic kidney disease, stage 3 unspecified; E11.22 Type 2 diabetes mellitus with diabetic chronic kidney disease; Z79.4 Long term (current) use of insulin | CPT/HCPCS: 11056; 11721 ==

== ENCOUNTER → 2022-11-28 08:24 | Outpatient (BNVA) | payer OTHER, SELFPAY | PROVIDERS: PCP Family Medicine; Visit Provider Orthopaedic Surgery | DX: Z98.890 Other specified postprocedural states; M48.062 Spinal stenosis, lumbar region with neurogenic claudication; M51.36 Other intervertebral disc degeneration, lumbar region; M25.78 Osteophyte, vertebrae; Z98.1 Arthrodesis status | CPT/HCPCS: 72100; 99214 ==

== ENCOUNTER → 2023-01-11 10:10 | Outpatient (BNVA) | payer OTHER, SELFPAY | PROVIDERS: PCP Family Medicine; Visit Provider Podiatrist Foot & Ankle Surgery | DX: E11.42 Type 2 diabetes mellitus with diabetic polyneuropathy (principal); M21.41 Flat foot [pes planus] (acquired), right foot; M21.42 Flat foot [pes planus] (acquired), left foot; R60.0 Localized edema; L60.3 Nail dystrophy; N18.30 Chronic kidney disease, stage 3 unspecified; E11.22 Type 2 diabetes mellitus with diabetic chronic kidney disease; Z79.4 Long term (current) use of insulin | CPT/HCPCS: 11721 ==

== ENCOUNTER → 2023-04-25 11:28 | Outpatient (BNVA) | payer OTHER, SELFPAY | PROVIDERS: PCP Family Medicine; Visit Provider Podiatrist Foot & Ankle Surgery | DX: E11.42 Type 2 diabetes mellitus with diabetic polyneuropathy (principal); M21.41 Flat foot [pes planus] (acquired), right foot; M21.42 Flat foot [pes planus] (acquired), left foot; R60.0 Localized edema; L60.3 Nail dystrophy; N18.30 Chronic kidney disease, stage 3 unspecified; Z79.4 Long term (current) use of insulin | CPT/HCPCS: 11721 ==

== ENCOUNTER → 2023-05-16 10:38 | Outpatient (BNVA) | payer OTHER, SELFPAY | PROVIDERS: PCP Family Medicine; Referring Provider Family Medicine; Visit Provider Specialist | DX: M25.551 Pain in right hip | CPT/HCPCS: 73502; 99204 ==

== ENCOUNTER → 2023-07-24 10:37 | Outpatient (BNVA) | payer OTHER, SELFPAY | PROVIDERS: PCP Family Medicine; Visit Provider Podiatrist Foot & Ankle Surgery | DX: E11.42 Type 2 diabetes mellitus with diabetic polyneuropathy (principal); M21.41 Flat foot [pes planus] (acquired), right foot; M21.42 Flat foot [pes planus] (acquired), left foot; R60.0 Localized edema; L60.3 Nail dystrophy; N18.30 Chronic kidney disease, stage 3 unspecified; Z79.4 Long term (current) use of insulin | CPT/HCPCS: 11721 ==

== ENCOUNTER 2023-08-11 12:29 | Emergency (ER) | payer OTHER, SELFPAY ==
[2023-08-11 12:45] VITALS: BP 125/73; PULSE 76; RESP 18; TEMP 36.8; O2SAT 99
--- NOTE | 2023-08-11 14:10 | CTR_ITS ---
PROCEDURE INFORMATION: Exam: CT Maxillofacial Without Contrast; Mandible Exam date and time: 08/11/2023 3:12 PM Age: 77 years old Clinical indication: Jaw pain; Additional info: Right mandible pain TECHNIQUE: Imaging protocol: Computed tomography maxillofacial without contrast. Exam focused on the mandible. Radiation optimization: All CT scans at this facility use at least one of these dose optimization techniques: automated exposure control; mA and/or kV adjustment per patient size (includes targeted exams where dose is matched to clinical indication); or iterative reconstruction. COMPARISON: CT neck wo con [id number] 08/12/2021 11:52 AM RADIATION DOSE METRICS: Total DLP (mGy-cm): 710.08 FINDINGS: Bones: There are degenerative changes across the bilateral temporomandibular joints. Paranasal sinuses: Paranasal sinus mucosal thickening. There are mucous retention cysts versus polyps in the right maxillary sinus. Salivary glands: Heterogeneous right parotid space mass with some internal complex low-density measures 2.4 x 1.6 x 2.3 cm in the AP/transverse/craniocaudad dimensions. There is surrounding inflammatory stranding. The bulk of the mass lies medial and posterior to the right mandibular ramus. Lymph nodes: Shotty level 2 lymph nodes on the right. Soft tissues: See Salivary glands finding. Vasculature: Multi-vessel atherosclerotic disease. CT/CT facial bones wo con* [id number] IMPRESSION: Heterogeneous right parotid space mass. Differential includes tumor, necrotic lymph node, and infection/abscess.
--- NOTE | 2023-08-11 14:13 | ED_ITS ---
HPI - General Adult 2 General: Chief complaint: General Medical Stated complaint: jaw pain Time Seen by Provider: 08/11/23 13:59 Source: patient Mode of arrival: ambulatory Limitations: no limitations History of Present Illness: This patient states he developed right jaw pain that began approximately Sunday at 2 AM. He states it woke him up from sleep. He states his jaw hurts particularly when he opens and shuts his mouth. He denies any trauma fevers or chills. He denies any difficulty with swallowing or breathing. He denies any difficulty with vision pain into his roman catholic area etc. Pain is not lancinating and it only occurs when he opens and shuts his jaw. Exacerbating factors: movement Associated symptoms: Reports no associated symptoms; Deny chest pain, dyspnea, headache(s), nausea, rash, palpitations or vomiting Review of Systems 2 Const: Denies: fever(s) or chills Eyes: Denies: change in vision ENMT: Denies: throat pain, odynophagia, swelling of lips/tongue, dental pain, nasal discharge or nasal congestion Card: Denies: chest pain or palpitations Resp: Denies: dyspnea, productive cough or non-productive cough GI: Denies: abdominal pain, nausea or vomiting : Denies: flank pain, difficulty urinating or dysuria Musc: Denies: neck pain or back pain Skin/Breast: Denies: rash Neuro: Denies: headache(s), dizziness or vertigo PFSH ED 2 PFSH: Medical History Lower back pain Psoriasis Controlled diabetes mellitus with diabetic nephropathy Hypertension Hyperlipidemia CAD (coronary artery disease) Aortic regurgitation CKD (chronic kidney disease) stage 3, GFR 30-59 ml/min Aortic cusp regurgitation Diverticulosis Male circumcision Gout, unspecified Surgical History Hx of neck surgery removal of mass Hx of cholecystectomy Hx of rotator cuff surgery Right Hx of CABG History of partial colectomy History of bilateral knee replacement History of back surgery History of colonoscopy (07/15/21) History of total left knee replacement had a partial prior to total Family History Grandmother Diabetes Stroke Hypertension Mother Diabetes Hypertension Father Heart attack Denies family history of Rheumatoid arthritis Lupus Clotting disorder Hyperlipidemia Anesthesia complication Bleeding disorder Cancer Social History Smoking and tobacco/nicotine status: never used tobacco/nicotine Alcohol intake: never Physical Exam 2 Narrative: EXAM NARRATIVE: He makes good eye contact and appears to be in no acute distress. He talks without any affected voice and his face appears symmetrical. Const: COMMON NORMALS: no acute distress and patient oriented x3 GENERAL APPEARANCE: cooperative and comfortable HENMT: COMMON NORMALS: normocephalic, atraumatic, external ears normal (No mastoid tenderness or swelling), EAC's normal, TM's normal bilaterally, moist oral mucous membranes and oropharynx normal HEAD & SCALP: normocephalic and atraumatic FACE & SINUS: normal facial exam, sinuses nontender, face symmetric and Facial tenderness on exam of face and sinuses (Preauricular and TMJ region. No temporal artery area tenderness) on the right EXTERNAL EAR: Y es external ears normal (No mastoid tenderness or swelling) EXTERNAL AUDITORY CANAL: EAC's normal TYMPANIC MEMBRANE: TM's normal bilaterally OTHER: He is edentulous for all maxillary teeth. He has approximately 50% missing mandibular teeth. No intraoral masses. His tongue is mobile there is no induration. Eye: COMMON NORMALS: Equal, round and reactive pupils present, EOMs intact bilaterally and conjunctivae normal CONJUNCTIVA: Yes conjunctivae normal P UPIL: Yes Equal, round and reactive pupils present Neck/C-Spine: COMMON NORMALS: full ROM, no lymphadenopathy and supple Neuro: COMMON NORMALS: patient oriented x3 Course 2 Vital Signs: Vital signs: Vital Signs Temperature 98.2 F 08/11/23 12:45 Pulse Rate 76 08/11/23 12:45 Respiratory Rate 18 08/11/23 12:45 Blood Pressure 125/73 08/11/23 12:45 Pulse Oximetry 99 08/11/23 12:45 Oxygen Delivery Me thod Room Air 08/11/23 12:45 MDM - General Adult Medical Decision Making This patient presented to the emergency department with several day history of pain in his right jaw on the angle of the jaw which causes more discomfort when he was chewing. No true jaw claudication it was and it was more when he was opening and shutting his mouth he would have pain in that area. There was no associated fevers difficulty swallowing difficulty speaking etc. Clinical exam revealed tenderness anterior to the TMJ and in the soft tissue in the area of the parotid region. There was no intraoral lesions there was no evidence of Orlin's angina or other concerning findings. Imaging was obtained which showed findings suggestive and supportive of likely mild parotitis. Patient was clinically comfortable afebrile had normal vital signs and did not have a significant leukocytosis or other findings that would suggest a significant abscess or reasons for further surgical evaluation and/or admission at this time. The plan will be treating to treat him with oral antibiotics hard candy and follow-up with an ENT referral for later this week with return precautions. Had a later discussion with radiologist and she states that she was able to find an old CT in which he had something in that same area approximately 2 years ago. Also old records I reviewed revealed he had an evaluation by ENT in as well. We will continue with the current plan but he will definitely need an otolaryngology follow-up to further discern any other etiologies other than potential infection. Lab Data I reviewed the patient's lab results. 08/11/23 14:23 08/11/23 14:[address] 08/11/23 14:10 IMPRESSION: Heterogeneous right parotid space mass. Differential includes tumor, necrotic lymph node, and infection/abscess. Laboratory Results WBC 10.70 10^3/uL (3.29-11.43) 08/11/23 14:23 RBC 3.54 10^6/uL (3.85-5.65) L 08/11/23 14:23 Hgb 11.30 g/dL (11.27-16.99) 08/11/23 14:23 Hct 33.7 % (37-53) L 08/11/23 14:23 MCV 95.2 fl (82-101) 08/11/23 14:23 MCH 31.9 pg (27-33) 08/11/23 14: MCHC 33.5 g/dL (30-55) 08/11/23 14:23 RDW 14.2 % (12.1-15.1) 08/11/23 14:23 Plt Count 172 10^3/cmm (157-399) 08/11/23 14:23 MPV 9.4 fL (7.4-10.4) 08/11/23 14:23 Neut % (Auto) 77.6 % 08/11/23 14:23 Lymph % (Auto) 10.7 % 08/11/23 14:23 Scurry % (Auto) 9.0 % 08/11/23 14:23 Eos % (Auto) 1.5 % 08/11/23 14:23 Baso % (Auto) 0.6 % 08/11/23 14:23 Neut # (Auto) 8.31 10^3/uL (1.8-7.7) H 08/11/23 14:23 Lymph # (Auto) 1.2 10^3/uL (0.8-4.8) 08/11/23 14:23 Scurry # (Auto) 1.0 10^3/uL (0.2-0.9) H 08/11/23 14:23 Eos # (Auto) 0.2 10^3/uL (0.0-0.8) 08/11/23 14:23 Baso # (Auto) 0.1 10^3/uL (0.0-0.1) 08/11/23 14:23 Nucleated RBC % (auto) 0 % 08/11/23 14:23 Nucleated RBCs # 0.0 /100WBC 08/11/23 14:23 ESR 20 mm/hr (0-10) H 08/11/23 14:23 Sodium 135 mmol/L (136-145) L 08/11/23 14:23 Potassium 3.9 mmol/L (3.5-5.1) 08/11/23 14:23 Chloride 95 mmol/L (98-107) L 08/11/23 14:23 Carbon Dioxide 27 mmol/L (22-29) 08/11/23 14:23 Anion Gap 16.9 (5-19) 08/11/23 14:23 BUN 41 mg/dL (8-23) H 08/11/23 14:23 Creatinine 2.8 mg/dL (0.7-1.2) H 08/11/23 14:23 GFR Calculation Not Reportable 08/11/23 14:23 Glucose 123 mg/dL (65-115) H 08/11/23 14:23 Calculated Osmolality 291 mOsm/kg (285-295) 08/11/23 14:23 Calcium 8.9 mg/dL (8.5-10.5) 08/11/23 14:23 All radiology interpretation(s) finalized by discharge Discharge Plan Discharge Patient Disposition: Home Clinical Impression: Acute parotitis Condition: Stable Prescriptions: New amoxicillin-pot clavulanate 875-125 mg tablet 1 tab PO BID Qty: 20 0RF No Action capsaicin 0.075 % cream 1 applic topical PRN PRN (Reason: Pain) Rx Instructions: do not wash area for at least 30 min after application clobetasol [Clobex] 0.05 % spray,non-aerosol 1 applic topical PRN PRN (Reason: Skin Irritation) Rx Instructions: not to exceed 26 sprays per single application alogliptin 6.25 mg tablet 6.25 mg PO DAILY aspirin [Adult Low Dose Aspirin] 81 mg tablet,delayed release (DR/EC) 81 mg PO DAILY cholecalciferol (vitamin D3) 25 mcg (1,000 unit) capsule 75 mcg PO DAILY pantoprazole 40 mg tablet,delayed release (DR/EC) 40 mg PO QAM carvedilol 25 mg tablet 12.5 mg PO BID Rx Instructions: must administer with a meal/food allopurinol 100 mg tablet 150 mg PO DAILY amlodipine 10 mg tablet 10 mg PO DAILY 90 Days Qty: 90 3RF mupirocin 2 % ointment 1 applic topical BID Qty: 22 0RF (DME) Diabetic Shoes with inserts See Rx Instructions .Route .MEDSUPPLY Qty: 1 0RF Rx Instructions: As directed BY LATOSHA&O prednisone 5 mg tablet 5 mg PO DAILY Qty: 20 0RF hydrocodone-acetaminophen 5-325 mg tablet 1 tab PO Q4H PRN (Reason: pain) 7 Days Qty: 40 0RF calcipotriene 0.005 % cream 1 applic topical DAILY PRN (Reason: Rash) Rx Instructions: rub in gently and completely alternate every other day with betamethasone betamethasone dipropionate 0.05 % ointment 1 applic topical BID PRN (Reason: Rash) Rx Instructions: Apply to affected area on buttocks twice daily for 3 weeks then switch to calcipotriene Ozempic 0.25 mg or 0.5 mg(2 mg/1.5 mL) Pen Injector 0.5 mg SUBCUT Q7D Rx Instructions: on sat atorvastatin [Lipitor] 80 mg Tablet 40 mg PO DAILY omega-3 fatty acids 1,000 mg Capsule 2,000 mg PO BID Novolin 70/30 U-100 Insulin 100 unit/mL (70-30) Suspension See Rx Instructions .ROUTE .COMPLEX Rx Instructions: sliding scale subcutaneously tid as needed for high blood sugar ferrous sulfate [iron] 325 mg (65 mg iron) Tablet 325 mg PO BID ketoconazole 2 % Cream 1 applic TOPICAL BID PRN (Reason: Rash) bumetanide 1 mg tablet 3 mg PO DAILY glucose 4 gram Tablet,Chewable 4 g PO Q15M PRN (Reason: LOW BLOOD SUGAR) Rx Instructions: until symptoms of low blood sugar are controlled fluticasone propion-salmeterol 100-50 mcg/dose Blister With Device 1 inh INHALATION BID PRN (Reason: unknown) albuterol sulfate 90 mcg/actuation Hfa Aerosol Inhaler 2 puff INHALATION QID PRN (Reason: Shortness Of Breath) Discharge Orders: Discharge ED (Routine); Ordered 08/11/23 Ordered By: Trevor Champagne Referrals: Gretchen Ridley MD [Primary Care Provider] - Discharge Diet: Usual diet Discharge Activity: Increase activity as tolerated Patient Instructions: Opioid Safety, Pain Management Activity Restrictions/Additional Instructions: As we discussed you have an inflammation of the gland in front of your called the parotid gland. We have given you antibiotics to take for the next 10 days. We also recommend you get hard candy such as lemon drops etc. and suck on nose to help promote drainage. You also will be referred to the ear nose and throat doctor for follow-up to ensure that there is no other conditions that are related to your current symptoms. If you become more sick with increasing pain, cannot eat or drink, running high fevers return to this emergency department immediately. Coding Level of Care Code ED [employer] for Parvez Aggarwal
[2023-08-11 14:28] LABS: Basophils # 0.1 10^3/uL (0.0-0.1); Basophils % 0.6 %; Eosinophils # 0.2 10^3/uL (0.0-0.8); Eosinophils % 1.5 %; Hematocrit 33.7 % (37-53); Lymphocytes # 1.2 10^3/uL (0.8-4.8); Lymphocytes % 10.7 %; Mean Corpuscular HGB Conc 33.5 g/dL (30-55); Mean Corpuscular Hemoglobin 31.9 pg (27-33); Mean Corpuscular Volume 95.2 fl (82-101); Mean Platelet Volume 9.4 fL (7.4-10.4); Neutrophils # 8.31 10^3/uL (1.8-7.7); Neutrophils % 77.6 %; Nucleated Red Blood Cells % 0 %; Platelet Count 172 10^3/cmm (157-399); Red Blood Count 3.54 10^6/uL (3.85-5.65); Red Cell Distribution Width 14.2 % (12.1-15.1)
[2023-08-11 14:37] LABS: Erythrocyte Sedimentation Rate 20 mm/hr (0-10)
[2023-08-11 14:44] LABS: Anion Gap 16.9 (5-19); Blood Urea Nitrogen 41 mg/dL (8-23); Calcium 8.9 mg/dL (8.5-10.5); Carbon Dioxide 27 mmol/L (22-29); Chloride 95 mmol/L (98-107); Glucose 123 mg/dL (65-115); Osmolality Calculated 291 mOsm/kg (285-295); Potassium 3.9 mmol/L (3.5-5.1); Sodium 135 mmol/L (136-145)
--- NOTE | 2023-08-11 15:10 | PC.PHAR ---
[facility]- PT STSATES NOTHING HAS CHANGED SINCE LAST VISIT HERE EXCEPT BUMETANIDE 1 MG WAS INCREASED TO 3 MG DAILY.
[2023-08-11] MEDS: amoxicillin-clav 875-125 mg Tablet 1 TAB PO (17:48)
[2023-08-11 17:55] VITALS: BP 127/71; PULSE 71; RESP 16; TEMP 36.8; O2SAT 100
--- NOTE | 2023-08-11 18:02 | DCPLANNER ---
Sent followup request to [facility] 08/11/23 @[id number]
== END 2023-08-11 17:56 | disposition home or self-care (01) ==
PROVIDERS: Emergency Provider Emergency Medicine; PCP Family Medicine
DX: K11.21 Acute sialoadenitis (principal); Z79.82 Long term (current) use of aspirin; Z79.85 Long-term (current) use of injectable non-insulin antidiabetic drugs; Z79.4 Long term (current) use of insulin; Z95.1 Presence of aortocoronary bypass graft; E11.22 Type 2 diabetes mellitus with diabetic chronic kidney disease; I12.9 Hypertensive chronic kidney disease with stage 1 through stage 4 chronic kidney disease, or unspecified chronic kidney disease; N18.30 Chronic kidney disease, stage 3 unspecified; E78.5 Hyperlipidemia, unspecified
CPT/HCPCS: 70486; 80048; 85025; 85651; 99284

== ENCOUNTER → 2023-11-12 09:14 | Outpatient (BNVA) | payer OTHER, SELFPAY | PROVIDERS: PCP Family Medicine; Visit Provider Podiatrist Foot & Ankle Surgery | DX: E11.42 Type 2 diabetes mellitus with diabetic polyneuropathy (principal); L60.3 Nail dystrophy; N18.30 Chronic kidney disease, stage 3 unspecified; E11.29 Type 2 diabetes mellitus with other diabetic kidney complication; Z79.4 Long term (current) use of insulin | CPT/HCPCS: 11721 ==

== ENCOUNTER → 2024-02-13 13:00 | Outpatient (BNVA) | payer OTHER, SELFPAY | PROVIDERS: PCP Family Medicine; Visit Provider Podiatrist Foot & Ankle Surgery | DX: E11.42 Type 2 diabetes mellitus with diabetic polyneuropathy (principal); L60.3 Nail dystrophy; N18.30 Chronic kidney disease, stage 3 unspecified; E11.29 Type 2 diabetes mellitus with other diabetic kidney complication; Z79.4 Long term (current) use of insulin | CPT/HCPCS: 11721 ==

== ENCOUNTER → 2024-04-08 09:53 | Outpatient (BNVA) | payer OTHER, SELFPAY | PROVIDERS: PCP Family Medicine; Visit Provider Nurse Practitioner Family | DX: D69.2 Other nonthrombocytopenic purpura (principal); L57.8 Other skin changes due to chronic exposure to nonionizing radiation; L21.8 Other seborrheic dermatitis; L57.0 Actinic keratosis; D48.5 Neoplasm of uncertain behavior of skin | CPT/HCPCS: 11102; 17004; 99203 ==

== ENCOUNTER → 2024-04-10 08:44 | Outpatient (BNVA) | payer OTHER, SELFPAY | PROVIDERS: PCP Family Medicine; Visit Provider Student in an Organized Health Care Education/Training Program | DX: K92.1 Melena (principal) | CPT/HCPCS: 99204 ==

== ENCOUNTER 2024-04-28 12:15 | Day surgery (SDC) | payer OTHER, SELFPAY ==
[2024-04-28 12:51] VITALS: BP 159/78; PULSE 69; RESP 18; TEMP 36.4; O2SAT 100; BMI 28.2
[2024-04-28] MEDS: sodium chloride 0.9% 500 ML 15 ML IV (12:57)
--- NOTE | 2024-04-28 13:22 | ANES.PREANE2 ---
Pre-Anesthetic Assessment Height/Weight: Height 1.88 m Weight 99.79 kg Temp Pulse Resp BP Pulse Ox O2 Del Method 97.6 F 69 18 159/78 100 Room Air 04/28/24 12:51 04/28/24 12:51 04/28/24 12:51 04/28/24 12:51 04/28/24 12:51 04/28/24 12:51 Operation Date: 04/28/24 13:30 Proposed Procedures p Colonoscopy 59568, G0105, K92.1(Not Applicable) - Nils Lee MD Familial anesthetic complications: none Was Beta Fatoumata taken within 24 hours: Yes Last intake: Intake Last Liquid Date 04/27/24 Last Liquid Time 20:00 Last Solid Date 04/26/24 Last Solid Time 18:00 Social No alcohol and No tobacco Exam alert, No oriented x 3, No clear to auscultation bilaterally and regular rate & rhythm Airway Submandibular: within normal limits Cervical ROM: within normal limits Mallampati: Class II Dentition: partials (upper plate) Pulmonary None reported CV/HEM Anemia, Coronary Artery Disease, Hypertension and Myocardial Infarction 04/24 CONCLUSIONS LV systolic function is normal with EF of 55-60% Left atrial dilation Mild mitral annular calcification. Mild mitral regurgitation Aortic valve is thickened and calcified. Mild aortic stenosis with aortic valve area of 1.36cm2 and mean gradient across aortic valve of 13.9mmHg. Compared to prior echocardiogram from 07/2021, patient now has mild aortic stenosis. CABG 2014 Chronic Renal Failure (STAGE 3) Hepatic None reported GI Gastroesophageal Reflux Disease Musc/skel Weakness WALKER AND CANE USE all the time. Neuropsych None reported Anesthetic Plan ASA status: 3 Anesthesia: MAC Medications/Allergies Home Medications Medication Instructions Recorded Confirmed Last Taken Type aspirin 81 mg tablet,delayed 81 mg PO DAILY 10/12/20 04/24/24 04/24/24 History release (Adult Low Dose Aspirin) cholecalciferol (vitamin D3) 25 75 mcg PO DAILY 10/12/20 04/24/24 04/24/24 History mcg (1,000 unit) capsule pantoprazole 40 mg tablet,delayed 40 mg PO QAM 10/12/20 04/24/24 04/24/24 History release alogliptin 6.25 mg tablet 6.25 mg PO DAILY 04/19/21 04/24/24 04/27/24 History capsaicin 0.075 % topical cream 1 applic topical PRN PRN Pain 04/19/21 04/28/24 10/12/21 History (Arthritis Pain Relief (capsaicin)) carvedilol 25 mg tablet 12.5 mg PO BID 04/19/21 04/24/24 04/28/24 History allopurinol 100 mg tablet 150 mg PO DAILY 06/17/21 04/28/24 04/27/24 History amlodipine 10 mg tablet 10 mg PO DAILY 90 days #90 tabs 06/20/21 04/24/24 04/27/24 Rx albuterol sulfate 90 mcg/actuation 2 puff inhalation QID PRN 09/08/21 04/24/24 3 Months Ago History aerosol inhaler Shortness Of Breath ~01/23/24 fluticasone 100 mcg-salmeterol 50 1 inh inhalation BID PRN unknown 09/08/21 04/24/24 04/27/24 History mcg/dose blistr powdr for inhalation glucose 4 gram chewable tablet 4 g PO Q15M PRN LOW BLOOD SUGAR 09/08/21 04/24/24 04/23/24 History prednisone 5 mg tablet 5 mg PO DAILY #20 tabs 10/14/21 04/24/24 04/24/24 Rx betamethasone dipropionate 0.05 % 1 applic topical BID PRN Rash 04/16/22 04/24/24 3 Months Ago History topical ointment ~01/23/24 calcipotriene 0.005 % topical cream 1 applic topical DAILY PRN Rash 04/16/22 04/28/24 Unknown History semaglutide 0.25 mg or 0.5 mg (2 0.5 mg SUBCUT Q7D 04/16/22 04/24/24 04/12/24 History mg/1.5 mL) subcutaneous pen injector (Ozempic) atorvastatin 80 mg tablet (Lipitor) 40 mg PO DAILY 04/17/22 04/24/24 04/26/24 History ferrous sulfate 325 mg (65 mg 325 mg PO BID 04/17/22 04/24/24 04/24/24 History iron) tablet (iron) insulin human U-100 NPH-regulr See Rx Instructions .Route .COMPLEX 04/17/22 04/24/24 04/27/24 History 70-30 mix 100 unit/mL subcutaneous susp (Novolin 70/30 U-100 Insulin) omega-3 fatty acids 1,000 mg 2,000 mg PO TID 04/17/22 04/24/24 04/24/24 History capsule hydrocodone 5 mg-acetaminophen 325 1 tab PO Q4H PRN pain 7 days #40 05/30/22 04/28/24 Unknown Rx mg tablet tabs Diabetic Shoes with inserts #1 ea 07/19/22 04/10/24 Unknown Rx bumetanide 1 mg tablet 3 mg PO DAILY 08/11/23 04/24/24 04/26/24 History Allergies Allergy/AdvReac Type Severity Reaction Status Date / Time sulfamethoxazole Allergy Mild Rash Verified 04/24/24 15:45 [From Bactrim] trimethoprim [From Bactrim] Allergy Mild Rash Verified 04/24/24 15:45 niacin Allergy Unknown Verified 04/24/24 15:45 Current Medications Generic Name Dose Route Start Last Admin Trade Name Freq PRN Reason Stop Dose Admin Sodium Chloride 500 mls @ 15 mls/hr 04/28/24 12:46 04/28/24 12:57 Sodium Chloride 0.9% IV 04/29/24 12:45 15 mls/hr .Q24H PRN Administration COLONOSCOPY FLUIDS PFSH Anesthesia Medical History Lower back pain Psoriasis Controlled diabetes mellitus with diabetic nephropathy Hypertension Hyperlipidemia CAD (coronary artery disease) Aortic regurgitation CKD (chronic kidney disease) stage 3, GFR 30-59 ml/min Aortic cusp regurgitation Diverticulosis Male circumcision Gout, unspecified Surgical History Hx of neck surgery removal of mass Hx of cholecystectomy Hx of rotator cuff surgery Right Hx of CABG History of partial colectomy History of bilateral knee replacement History of back surgery History of colonoscopy (07/15/21) History of total left knee replacement had a partial prior to total Family History Grandmother Diabetes Stroke Hypertension Mother Diabetes Hypertension Father Heart attack Denies family history of Rheumatoid arthritis Lupus Clotting disorder Hyperlipidemia Anesthesia complication Bleeding disorder Cancer Social History Smoking and tobacco/nicotine status: never used tobacco/nicotine Alcohol intake: never Data Anesthesia Cardiac Studies: Echocardiogram 04/17/22
[2024-04-28 13:26] LABS: Glucose Point of Care 102 mg/dL (70-110)
--- NOTE | 2024-04-28 13:59 | W.PM.OPSUD ---
Surgery/Procedure H&P Update DATE OF PROCEDURE: April 28, 2024 DATE H&P PERFORMED: 04/10/24 H&P UPDATE INFORMATION: I have reviewed H&P completed within last 30 days, I have examined patient prior to procedure and No changes to prior documentation PLANNED PROCEDURE: Operation Date: 04/28/24 13:30 Proposed Procedures p Colonoscopy 00284, G0105, K92.1(Not Applicable) - Nils Lee MD
[2024-04-28 14:00] LABS: Anion Gap 19.2 (5-19); Aspartate Amino Transferase 19 U/L (0-40); Blood Urea Nitrogen 38 mg/dL (8-23); Calcium 8.1 mg/dL (8.5-10.5); Carbon Dioxide 24 mmol/L (22-29); Chloride 98 mmol/L (98-107); Creatinine Clr Calc Pharmacy 28.6013; Glucose 133 mg/dL (65-115); Osmolality Calculated 295 mOsm/kg (285-295); Potassium 4.2 mmol/L (3.5-5.1); Sodium 137 mmol/L (136-145); Total Bilirubin 0.7 mg/dL (0.15-1.2)
[2024-04-28 14:01] LABS: Alanine Aminotransferase 13 U/L (0-41); Albumin Level 3.8 g/dL (3.5-5.2); Alkaline Phosphatase 123 U/L (40-130); Globulin 3.1 g/dL (1.3-4.6); Total Protein 6.9 g/dL (6.6-8.7)
[2024-04-28 14:33] VITALS: BP 111/68; PULSE 67; RESP 16; TEMP 36.3; O2SAT 97
[2024-04-28 14:46] VITALS: BP 118/69; PULSE 66; RESP 17; O2SAT 97
--- NOTE | 2024-04-28 15:15 | ANE.PACU2 ---
Inpatient post-anesthesia follow up: Airway intact: Yes Vital signs: Temperature 97.4 F Pulse Rate 66 Respiratory Rate 17 Blood Pressure 118/69 Pulse Oximetry 97 Oxygen Delivery Me thod Room Air Oxygen Flow Rate Fraction of Inspir ed Oxygen Hydration adequate: Yes Nausea and vomiting: No Pain level: 1 Mental status: Baseline
== END 2024-04-28 15:17 | disposition home or self-care (01) ==
PROVIDERS: Anesthesiology; PCP Family Medicine; Visit Provider Student in an Organized Health Care Education/Training Program
PROC: 0DJD8ZZ Inspection of Lower Intestinal Tract, Via Natural or Artificial Opening Endoscopic (ICD-10-PCS; CPT 45378; principal; 2024-04-28 13:30)
DX: K57.30 Diverticulosis of large intestine without perforation or abscess without bleeding (principal); K92.1 Melena; I25.10 Atherosclerotic heart disease of native coronary artery without angina pectoris; I25.2 Old myocardial infarction; D64.9 Anemia, unspecified; Z95.1 Presence of aortocoronary bypass graft; K21.9 Gastro-esophageal reflux disease without esophagitis; E11.22 Type 2 diabetes mellitus with diabetic chronic kidney disease; E11.21 Type 2 diabetes mellitus with diabetic nephropathy; E78.5 Hyperlipidemia, unspecified; I12.9 Hypertensive chronic kidney disease with stage 1 through stage 4 chronic kidney disease, or unspecified chronic kidney disease; N18.30 Chronic kidney disease, stage 3 unspecified; Z79.899 Other long term (current) drug therapy; Z79.82 Long term (current) use of aspirin; Z79.84 Long term (current) use of oral hypoglycemic drugs; Z79.85 Long-term (current) use of injectable non-insulin antidiabetic drugs; Z79.4 Long term (current) use of insulin; Z88.8 Allergy status to other drugs, medicaments and biological substances; Z88.2 Allergy status to sulfonamides; Z90.49 Acquired absence of other specified parts of digestive tract
CPT/HCPCS: 36416; 45378; 80053; 82962; J2405; J2704; J7040

== ENCOUNTER 2024-05-01 13:25 | Outpatient (CLI) | payer OTHER, SELFPAY ==
--- NOTE | 2024-05-01 13:53 | MR_ITS ---
WS: [id number] MRI CERVICAL SPINE NONCONTRAST HISTORY: CERVICAL RADICULOPATHY COMPARISON: None available. Technique: Multiplanar, multisequence noncontrast imaging of the cervical spine. Mild LEFT curvature cervical spine. Disc spaces are narrowed and desiccated with large vertebral oste ophytes and facet arthritis. Osteophyte encroachment upon the cervical canal. Most significant at the C3-4 level. No cord edema. Craniocervical junction, C1 and C2 relationship, odontoid process and soft tissues are normal. C2-C3: Large RIGHT foraminal osteophyte encroaching upon the RIGHT lateral thecal sac. Moderate to se evan RIGHT foraminal stenosis and moderate LEFT foraminal stenosis. C3-C4: 2 mm retrolisthesis of C3. Marked osteophytic ridging and disc bulging. Severe facet arthritis . Severe bilateral foraminal and central stenosis. Cervical cord is being deformed by disc osteophyte disease but no myelomalacia. C4-C5: Diffuse osteophytic ridging and annular disc bulging and facet arthritis. Moderate central and RIGHT foraminal stenosis, severe LEFT foraminal stenosis. C5-C6: Bilateral disc osteophyte complexes extending paracentral and into the foramina. Mild central with moderate to severe bilateral foraminal stenosis. C6-C7: Mild annular disc bulging with vertebral osteophytes and bilateral foraminal stenosis. C7-T1: No stenosis. Paraspinal soft tissue are normal. MR/MR cervical spin wo con* [id number] IMPRESSION: 1. Multilevel advanced cervical and foraminal stenosis and facet arthritis. St enoses due to combination of disc and osteophytosis and facet arthritis. 2. C3-4: Severe central and bilateral foraminal stenosis predominantly due to disc and osteophyte disease and facet arthritis. 2 mm retrolisthesis of C3. 3. C2-3: Large RIGHT foraminal disc osteophyte resulting in moderate to severe RIGHT foraminal stenosis. Moderate LEFT foraminal stenosis due to disc osteoph yte disease. 4. C4-5: Moderate central and RIGHT foraminal stenosis with severe LEFT forami nal stenosis. 5. C5-6: Mild central with moderate to severe bilateral foraminal stenosis due to disc osteophyte disease. 6. C6-7: Mild bilateral foraminal stenosis.
== END 2024-05-01 13:26 | disposition home or self-care (01) ==
PROVIDERS: PCP Family Medicine; Visit Provider Nurse Practitioner Family
DX: E11.42 Type 2 diabetes mellitus with diabetic polyneuropathy (principal); L60.3 Nail dystrophy; N18.30 Chronic kidney disease, stage 3 unspecified; N18.4 Chronic kidney disease, stage 4 (severe); Z79.4 Long term (current) use of insulin
CPT/HCPCS: 11721; 36415; 72141; 80069; 82044; 82306; 82310; 83970; 85025

== ENCOUNTER → 2024-05-15 12:44 | Outpatient (BNVA) | payer OTHER, SELFPAY | PROVIDERS: PCP Family Medicine; Visit Provider Student in an Organized Health Care Education/Training Program | DX: Z09 Encounter for follow-up examination after completed treatment for conditions other than malignant neoplasm (principal); R03.0 Elevated blood-pressure reading, without diagnosis of hypertension | CPT/HCPCS: 99213 ==

== ENCOUNTER → 2024-07-24 14:32 | Outpatient (BNVA) | payer OTHER, SELFPAY | PROVIDERS: PCP Family Medicine; Visit Provider Nurse Practitioner Family | DX: D69.2 Other nonthrombocytopenic purpura (principal); L57.8 Other skin changes due to chronic exposure to nonionizing radiation; L21.8 Other seborrheic dermatitis; Z08 Encounter for follow-up examination after completed treatment for malignant neoplasm; Z85.828 Personal history of other malignant neoplasm of skin; L57.0 Actinic keratosis | CPT/HCPCS: 17000; 99213 ==

== ENCOUNTER → 2024-07-31 10:59 | Outpatient (BNVA) | payer OTHER, SELFPAY | PROVIDERS: PCP Family Medicine; Visit Provider Podiatrist Foot & Ankle Surgery | DX: E11.42 Type 2 diabetes mellitus with diabetic polyneuropathy (principal); L60.3 Nail dystrophy; E11.8 Type 2 diabetes mellitus with unspecified complications; N18.30 Chronic kidney disease, stage 3 unspecified; Z79.4 Long term (current) use of insulin | CPT/HCPCS: 11721 ==

== ENCOUNTER 2024-08-14 14:44 | Emergency (ER) | payer OTHER, SELFPAY ==
[2024-08-14 14:54] VITALS: BP 151/78; PULSE 78; RESP 17; TEMP 36.4; O2SAT 96; BMI 28.8
--- NOTE | 2024-08-14 16:05 | PC.PHAR ---
[facility] is [facility], sent and received fax verifying meds before patient got a room, that is why they are listed as unknown with last taken
[2024-08-14 17:01] VITALS: BP 159/96; PULSE 76; O2SAT 99
--- NOTE | 2024-08-14 17:13 | CTR_ITS ---
PROCEDURE INFORMATION: Exam: CT Lumbar Spine Without Contrast Exam date and time: 08/14/2024 6:27 PM Age: 78 years old Clinical indication: Injury or trauma; Fall; Blunt trauma (contusions or hematomas); Prior surgery; Surgery date: 6+ months; Surgery type: Back; Additional info: Recent fall, new onset R foot drop TECHNIQUE: Imaging protocol: Computed tomography of the lumbar spine without contrast. Radiation optimization: All CT scans at this facility use at least one of these dose optimization techniques: automated exposure control; mA and/or kV adjustment per patient size (includes targeted exams where dose is matched to clinical indication); or iterative reconstruction. COMPARISON: MR lumbar spine wo con* [id number] 05/05/2022 1:23 PM RADIATION DOSE METRICS: Total DLP (mGy-cm): 909.6 FINDINGS: Bones/joints: Vertebral body heights maintained. Vertebral alignment anatomic. Prior L3-L5 posterior nabeel and pedicle screw fixation, without identified complication. Previous L3 and L4 laminectomies. Large marginal osteophytes at multiple levels. Severe facet arthropathy. Soft tissues: Unremarkable. CT/CT lumbar spine wo con* [id number] IMPRESSION: 1. No identified acute lumbosacral spine pathology. No significant central canal narrowing or neural foraminal narrowing. 2. Prior L3-L5 posterior fusion without identified hardware complication. Prior L3 and L4 laminectomies.
[2024-08-14 17:49] LABS: Basophils # 0.1 10^3/uL (0.0-0.1); Basophils % 0.5 %; Eosinophils # 0.1 10^3/uL (0.0-0.8); Eosinophils % 1.1 %; Hematocrit 30.9 % (37-53); Lymphocytes # 1.6 10^3/uL (0.8-4.8); Lymphocytes % 13.1 %; Mean Corpuscular HGB Conc 33.3 g/dL (30-55); Mean Corpuscular Hemoglobin 31.5 pg (27-33); Mean Corpuscular Volume 94.5 fl (82-101); Mean Platelet Volume 9.9 fL (7.4-10.4); Monocytes # 0.8 10^3/uL (0.2-0.9); Neutrophils # 9.16 10^3/uL (1.8-7.7); Neutrophils % 77.7 %; Nucleated Red Blood Cells % 0 %; Platelet Count 188 10^3/cmm (157-399); Red Blood Count 3.27 10^6/uL (3.85-5.65); Red Cell Distribution Width 14.2 % (12.1-15.1); White Blood Count 11.79 10^3/uL (3.29-11.43)
[2024-08-14 18:00] LABS: INR 1.03 (0.8-1.2)
[2024-08-14 18:08] LABS: Alanine Aminotransferase 17 U/L (0-41); Albumin Level 3.8 g/dL (3.5-5.2); Alkaline Phosphatase 125 U/L (40-130); Anion Gap 22.2 (5-19); Aspartate Amino Transferase 18 U/L (0-40); Blood Urea Nitrogen 50 mg/dL (8-23); Calcium 8.7 mg/dL (8.5-10.5); Carbon Dioxide 22 mmol/L (22-29); Chloride 98 mmol/L (98-107); Creatinine Clr Calc Pharmacy 25.9032; Globulin 3.5 g/dL (1.3-4.6); Glucose 174 mg/dL (65-115); Osmolality Calculated 304 mOsm/kg (285-295); Potassium 4.2 mmol/L (3.5-5.1); Sodium 138 mmol/L (136-145); Total Bilirubin 0.9 mg/dL (0.15-1.2); Total Protein 7.3 g/dL (6.6-8.7)
[2024-08-14 18:48] VITALS: BP 159/81; PULSE 88; O2SAT 97
[2024-08-14 19:00] VITALS: BP 132/97; PULSE 87; O2SAT 98
[2024-08-14 19:30] VITALS: BP 165/88; PULSE 73; O2SAT 97
--- NOTE | 2024-08-14 20:12 | W.ED.EXTPRO ---
HPI - Extremity Problem General: Chief complaint: Extremity Problem,Nontraumatic Stated complaint: Weakness, Foot Drop Time Seen by Provider: 08/14/24 16:51 Source: patient and family Mode of arrival: ambulatory Limitations: no limitations History of Present Illness: 78 male comes to the ER with daughters. Reporting seen in [facility] and diagnosed with acute dropfoot. Had a fall on the first. Reportedly the legs got a lot weaker in the past 2 to 3 days. No fever no chills. Denies any urinary incontinence does have issues holding it as him as he used to. Has no saddle numbness but does have right leg numbness. And even his proximal muscles of his right leg are quite weak. Related Data Home Medications ?Medication ?Instructions ?Recorded ?Confirmed aspirin 81 mg tablet,delayed 81 mg PO DAILY 10/12/20 08/14/24 release (Adult Low Dose Aspirin) pantoprazole 40 mg tablet,delayed 40 mg PO QAM 10/12/20 08/14/24 release carvedilol 25 mg tablet 12.5 mg PO BID 04/19/21 08/14/24 allopurinol 100 mg tablet 200 mg PO DAILY 06/17/21 08/14/24 atorvastatin 80 mg tablet (Lipitor) 40 mg PO DAILY 04/17/22 08/14/24 insulin human U-100 NPH-regulr 60 unit SUBCUT BID 04/17/22 08/14/24 70-30 mix 100 unit/mL subcutaneous susp (Novolin 70/30 U-100 Insulin) amlodipine 5 mg tablet 5 mg PO DAILY 08/14/24 08/14/24 calcitriol 0.25 mcg capsule 0.25 mcg PO DAILY 08/14/24 08/14/24 ferrous sulfate 325 mg (65 mg 325 mg PO DAILY 08/14/24 08/14/24 iron) tablet folic acid 1 mg tablet 1 mg PO DAILY 08/14/24 08/14/24 semaglutide 1 mg/dose (4 mg/3 mL) 1 mg SUBCUT Q7D 08/14/24 08/14/24 subcutaneous pen injector (Ozempic) Previous Rx's ?Medication ?Instructions ?Recorded prednisone 5 mg tablet 5 mg PO DAILY #20 tabs 10/14/21 Allergies Allergy/AdvReac Type Severity Reaction Status Date / Time sulfamethoxazole (From Allergy Mild Rash Verified 05/01/25 11:15 Bactrim) trimethoprim (From Bactrim) Allergy Mild Rash Verified 07/31/24 11:15 niacin Allergy Unknown Verified 07/31/24 11:15 Review of Systems General: Reports: 10 or more systems reviewed and unremarkable except in HPI and below PFSH ED PFSH: Medical History Lower back pain Psoriasis Controlled diabetes mellitus with diabetic nephropathy Hypertension Hyperlipidemia CAD (coronary artery disease) Aortic regurgitation CKD (chronic kidney disease) stage 3, GFR 30-59 ml/min Aortic cusp regurgitation Diverticulosis Male circumcision Gout, unspecified Surgical History Hx of neck surgery removal of mass Hx of cholecystectomy Hx of rotator cuff surgery Right Hx of CABG History of partial colectomy History of bilateral knee replacement History of back surgery History of colonoscopy (07/15/21) History of total left knee replacement had a partial prior to total Family History Grandmother Diabetes Stroke Hypertension Mother Diabetes Hypertension Father Heart attack Denies family history of Rheumatoid arthritis Lupus Clotting disorder Hyperlipidemia Anesthesia complication Bleeding disorder Cancer Social History Smoking and tobacco/nicotine status: never used tobacco/nicotine Alcohol intake: never Physical Exam Const: COMMON NORMALS: no acute distress, average body habitus, patient oriented x3, healthy appearing, alert and well nourished GENERAL APPEARANCE: well kempt and well developed HENMT: COMMON NORMALS: normocephalic, atraumatic, external ears normal and moist oral mucous membranes HEAD & SCALP: normocephalic and atraumatic EXTERNAL EAR: Yes external ears normal Eye: COMMON NORMALS: Equal, round and reactive pupils present, EOMs intact bilaterally and conjunctivae normal CONJUNCTIVA: Yes conjunctivae normal PUPIL: Yes Equal, round and reactive pupils present Neck/C-Spine: COMMON NORMALS: full ROM, no lymphadenopathy and supple Chest: CHEST: Yes Symmetrical chest wall rise and No Surgical scars present (Chest) Resp: COMMON NORMALS: normal respiratory effort, No retractions, No use of accessory muscles and clear to auscultation bilaterally AUSCULTATION: clear to auscultation bilaterally Cardio: COMMON NORMALS: regular rate, regular rhythm, S1 normal heart sound present, S2 normal heart sound present, No gallops present (Cardio), No clicks present (Cardio), No murmurs present (Cardio) and No rub (Cardio) RATE: regular rate RHYTHM: regular rhythm HEART SOUNDS: S1 normal heart sound present, S2 normal heart sound present and no murmurs PERIPHERAL PULSES: other (Radial pulses 2+ and symmetric) GI: COMMON NORMALS: Soft to palpation, non-tender and no masses INSPECTION: No abdominal distension PALPATION: Yes Soft to palpation, No Guarding due to palpation present (GI) and No Rebound tenderness present : COMMON NORMALS: Yes no CVA tenderness BLADDER/KIDNEY EXAM: Yes no CVA tenderness Back/Pelvis: COMMON NORMALS: no CVA tenderness Extremity: COMMON NORMALS: normal to inspection, capillary refill normal and no clubbing, cyanosis or edema Neuro: COMMON NORMALS: patient oriented x3 SENSORIUM/ORIENTATION: Yes alert MOTOR EXAM: Other motor observations present (Strength 5 out of 5 except in the right lower extremity. Where he has a we) Psych: APPEARANCE: Yes well kempt Skin: COMMON NORMALS: no rashes or lesions noted, no wounds, turgor normal and no jaundice GENERAL SKIN EXAM: no rashes or lesions noted and turgor normal Course Vital Signs: Vital signs: Vital Signs Temperature 97.6 F 08/14/24 14:54 Pulse Rate 75 08/14/24 20:45 Respiratory Rate 17 08/14/24 14:54 Blood Pressure 170/80 08/14/24 20:45 Pulse Oximetry 97 08/14/24 20:45 Oxygen Delivery Me thod Room Air 08/14/24 19:30 MDM - Extremity (Nontraumatic) Medical Decision Making Patient has numbness of the right leg, subtle area is good. He reports some increased incontinence but has a baseline issue due to prostate self. He reports he just cannot hold it as long. Is not freely flowing out and he has no issues with rectal tone or fecal incontinence. Exam was benign change in his duration or the ER and problem has been going on for greater than 2 days. Is just been much worse this past 2 days. Initially presented with his daughters. But he drove himself here. Any plans to drive himself home. I would question with his leg being weak if that is appropriate however patient understands my question and feels that it is. I have spoke with Dr. Magallon of orthopedic spine surgery who reports patient can call his office tomorrow to get an appointment for Sunday and he can try to get the MRI done stat outpatient. CT is thankfully been unremarkable. I have discussed with the patient and providing him a copy of his CT scan. Patient reports he will follow-up with Dr. Magallon or with a NS at the [facility]. Please note the patient was offered admission to get MRI done in the a.m. however he declined. Medical Records I reviewed the patient's medical records. Lab Data I reviewed the patient's lab results. 08/14/24 17:35 08/14/24 17:35 Radiology Impressions Lumbar Spine CT 08/14/24 17:13 IMPRESSION: 1. No identified acute lumbosacral spine pathology. No significant central canal narrowing or neural foraminal narrowing. 2. Prior L3-L5 posterior fusion without identified hardware complication. Prior L3 and L4 laminectomies. Laboratory Results WBC 11.79 10^3/uL (3.29-11.43) H 08/14/24 17:35 RBC 3.27 10^6/uL (3.85-5.65) L 08/14/24 17:35 Hgb 10.30 g/dL (11.27-16.99) L 08/14/24 17:35 Hct 30.9 % (37-53) L 08/14/24 17:35 MCV 94.5 fl (82-101) 08/14/24 17:35 MCH 31.5 pg (27-33) 08/14/24 17:35 MCHC 33.3 g/dL (30-55) 08/14/24 17:35 RDW 14.2 % (12.1-15.1) 08/14/24 17:35 Plt Count 188 10^3/cmm (157-399) 08/14/24 17:35 MPV 9.9 fL (7.4-10.4) 08/14/24 17:35 Neut % (Auto) 77.7 % 08/14/24 17:35 Lymph % (Auto) 13.1 % 08/14/24 17:35 [place] % (Auto) 7.0 % 08/14/24 17:35 Eos % (Auto) 1.1 % 08/14/24 17:35 Baso % (Auto) 0.5 % 08/14/24 17:35 Neut # (Auto) 9.16 10^3/uL (1.8-7.7) H 08/14/24 17:35 Lymph # (Auto) 1.6 10^3/uL (0.8-4.8) 08/14/24 17:35 [place] # (Auto) 0.8 10^3/uL (0.2-0.9) 08/14/24 17:35 Eos # (Auto) 0.1 10^3/uL (0.0-0.8) 08/14/24 17:35 Baso # (Auto) 0.1 10^3/uL (0.0-0.1) 08/14/24 17:35 Nucleated RBC % (auto) 0 % 08/14/24 17:35 Nucleated RBCs # 0.0 /100WBC 08/14/24 17:35 PT 14.20 SECONDS (12.1-14.9) 08/14/24 17:35 INR 1.03 (0.8-1.2) 08/14/24 17:35 Sodium 138 mmol/L (136-145) 08/14/24 17:35 Potassium 4.2 mmol/L (3.5-5.1) 08/14/24 17:35 Chloride 98 mmol/L (98-107) 08/14/24 17:35 Carbon Dioxide 22 mmol/L (22-29) 08/14/24 17:35 Anion Gap 22.2 (5-19) H 08/14/24 17:35 BUN 50 mg/dL (8-23) H 08/14/24 17:35 Creatinine 2.9 mg/dL (0.7-1.2) H 08/14/24 17:35 GFR Calculation Not Reportable 08/14/24 17:35 Glucose 174 mg/dL (65-115) H 08/14/24 17:35 Calculated Osmolality 304 mOsm/kg (285-295) H 08/14/24 17:35 Calcium 8.7 mg/dL (8.5-10.5) 08/14/24 17:35 Total Bilirubin 0.9 mg/dL (0.15-1.2) 08/14/24 17:35 AST 18 U/L (0-40) 08/14/24 17:35 ALT 17 U/L (0-41) 08/14/24 17:35 Alkaline Phosphatase 125 U/L (40-130) 08/14/24 17:35 Total Protein 7.3 g/dL (6.6-8.7) 08/14/24 17:35 Albumin 3.8 g/dL (3.5-5.2) 08/14/24 17:35 Globulin 3.5 g/dL (1.3-4.6) 08/14/24 17:35 All radiology interpretation(s) finalized by discharge Discharge Plan Discharge Patient Disposition: Home Clinical Impression: Acquired right foot drop, Sciatica of right side associated with disorder of lumbosacral spine, Right leg weakness Condition: Stable Prescriptions: No Action aspirin [Adult Low Dose Aspirin] 81 mg tablet,delayed release (DR/EC) 81 mg PO DAILY pantoprazole 40 mg tablet,delayed release (DR/EC) 40 mg PO QAM carvedilol 25 mg tablet 12.5 mg PO BID Rx Instructions: must administer with a meal/food allopurinol 100 mg tablet 200 mg PO DAILY prednisone 5 mg tablet 5 mg PO DAILY Qty: 20 0RF atorvastatin [Lipitor] 80 mg Tablet 40 mg PO DAILY Novolin 70/30 U-100 Insulin 100 unit/mL (70-30) Suspension 60 unit SUBCUT BID Rx Instructions: before meals 30 mins before amlodipine 5 mg Tablet 5 mg PO DAILY ferrous sulfate 325 mg (65 mg iron) Tablet 325 mg PO DAILY folic acid 1 mg Tablet 1 mg PO DAILY calcitriol 0.25 mcg Capsule 0.25 mcg PO DAILY Ozempic 1 mg/dose (4 mg/3 mL) Pen Injector 1 mg SUBCUT Q7D Discharge Orders: Discharge ED (Routine); Ordered 08/14/24 Ordered By: Matthew Dela Cruz Referrals: Kirill Magallon DO [Physician, Orthopedics] Gretchen Ridley MD [Primary Care Provider, Family Practice] Patient Instructions: Foot Drop (ED), Pain Management Activity Restrictions/Additional Instructions: As we discussed you should call Dr. Magallon's clinic tomorrow to get an appointment on Sunday. You can also call any other provider. However the MRI should be considered an urgent matter and you should see somebody as soon as possible. If things worsen or you start to have numbness of the groin, fecal or urinary incontinence please return to an ER immediately. Print Language: Chilean Coding Level of Care Code ED Tile Setter for Parvez Aggarwal
[2024-08-14 20:45] VITALS: BP 170/80; PULSE 75; O2SAT 97
== END 2024-08-14 20:46 | disposition home or self-care (01) ==
PROVIDERS: Emergency Provider Emergency Medicine; PCP Family Medicine
DX: M21.371 Foot drop, right foot (principal); M54.31 Sciatica, right side; M53.9 Dorsopathy, unspecified; R53.1 Weakness; Z79.82 Long term (current) use of aspirin; Z95.1 Presence of aortocoronary bypass graft; I25.10 Atherosclerotic heart disease of native coronary artery without angina pectoris; E11.40 Type 2 diabetes mellitus with diabetic neuropathy, unspecified; E11.22 Type 2 diabetes mellitus with diabetic chronic kidney disease; I12.9 Hypertensive chronic kidney disease with stage 1 through stage 4 chronic kidney disease, or unspecified chronic kidney disease; N18.30 Chronic kidney disease, stage 3 unspecified
CPT/HCPCS: 36415; 72131; 80053; 85025; 85610; 99284

== ENCOUNTER → 2024-08-21 10:49 | Outpatient (BNVA) | payer OTHER, SELFPAY | PROVIDERS: PCP Family Medicine; Visit Provider Orthopaedic Surgery | DX: M53.87 Other specified dorsopathies, lumbosacral region (principal); Z09 Encounter for follow-up examination after completed treatment for conditions other than malignant neoplasm; M25.551 Pain in right hip | CPT/HCPCS: 72100; 73502; 99214 ==

== ENCOUNTER → 2024-11-04 11:31 | Outpatient (BNVA) | payer OTHER, SELFPAY | PROVIDERS: PCP Family Medicine; Visit Provider Podiatrist Foot & Ankle Surgery | DX: E11.42 Type 2 diabetes mellitus with diabetic polyneuropathy (principal); L60.3 Nail dystrophy; E11.8 Type 2 diabetes mellitus with unspecified complications; N18.30 Chronic kidney disease, stage 3 unspecified; M20.41 Other hammer toe(s) (acquired), right foot; M20.42 Other hammer toe(s) (acquired), left foot; M21.41 Flat foot [pes planus] (acquired), right foot; M21.42 Flat foot [pes planus] (acquired), left foot; Z79.4 Long term (current) use of insulin | CPT/HCPCS: 11721; 99213 ==

== ENCOUNTER → 2024-11-19 09:41 | Outpatient (BNVA) | payer OTHER, SELFPAY | PROVIDERS: PCP Family Medicine; Visit Provider Internal Medicine Cardiovascular Disease | DX: I25.10 Atherosclerotic heart disease of native coronary artery without angina pectoris (principal); Z79.82 Long term (current) use of aspirin; I10 Essential (primary) hypertension; I35.0 Nonrheumatic aortic (valve) stenosis; E78.5 Hyperlipidemia, unspecified; M21.379 Foot drop, unspecified foot; Z95.1 Presence of aortocoronary bypass graft; R06.02 Shortness of breath; R07.9 Chest pain, unspecified | CPT/HCPCS: 99214 ==

== ENCOUNTER 2024-11-25 09:43 | Outpatient (CLI) | payer OTHER, SELFPAY ==
--- NOTE | 2024-11-25 10:00 | USCV_ITS ---
Becky, Ringgold Age: 79 Gender: M : 1945 Exam Date: 11/25/2024 09:59 Ordering Phys: Juan Francisco Jimenez MD ([email or web address]) Technologist: Exam Location: [facility] [place] Indication: murmur BP: 130 / 80 HR: 75 Rhythm: Sinus Technical Quality: Adequate MEASUREMENTS (Male / Female) Normal Values 2D ECHO LV Diastolic Diameter PLAX 5.2 cm 4.2 - 5.9 / 3.9 - 5.3 cm IVS Diastolic Thickness 1.6 cm 0.6 - 1.0 / 0.6 - 0.9 cm IVS Systolic Thickness 2.0 cm LVPW Diastolic Thickness 1.5 cm 0.6 - 1.0 / 0.6 - 0.9 cm LVPW Systolic Thickness 2.0 cm LVOT Diameter 2.0 cm LV Ejection Fraction 2D Teich 59.7 % LV Ejection Fraction MOD 4C 61.4 % LV Ejection Fraction MOD 2C 55.1 % LV Ejection Fraction 2C AL 56.2 % LA Diameter 4.7 cm RA Systolic Volume 4C AL 44.4 ml RA Systolic Volume 4C MOD 43.0 ml Aorta at Sinotubular Diameter 3.2 cm IVC Diameter 1.7 cm M-MODE LA Ao Ratio MM 1.2 AV Cusp Separation MM 2.2 cm DOPPLER AV Peak Velocity 323.0 cm/s LVOT Peak Velocity 88.0 cm/s AV Area Cont Eq vti 1.1 cm squared AV Area Cont Eq pk 0.9 cm squared MV Peak Velocity 142.0 cm/s MV Area PHT 2.6 cm squared Mitral E to A Ratio 0.7 TR Peak Velocity 211.0 cm/s TR Peak Gradient 17.8 mmHg TV Peak E Velocity 90.0 cm/s PV Peak Velocity 127.0 cm/s FINDINGS Left Ventricle Normal left ventricular size and systolic function with no regional wall motion abnormalities. Normal left ventricular size and systolic function, EF 55-60%. Moderate left ventricular hypertophy. Grade 1 diastolic dysfunction Right Ventricle Normal right ventricular size and systolic function. Right Atrium Normal right atrial size. Left Atrium Dilated Mitral Valve Mild mitral annular calcification. Mild mitral valve regurgitation. Aortic Valve Thickened aortic valve. Moderate aortic valve stenosis, mean gradient 21 mmHg, DANNY 1.06 cm squared. Tricuspid Valve Insufficient TR jet to calculate RVSP Pulmonic Valve Not well visualized Pericardium Normal Aorta Normal in size IVC Appears to be normal CONCLUSIONS LV systolic function is normal with EF of 55-60% Moderate left ventricular hypertrophy Grade 1 diastolic dysfunction Left atrial dilation Mild mitral valve regurgitation. Moderate aortic valve stenosis Jorge L Velásquez MD (Electronically Signed) Final Date: 28 November 2024 09:23 S
== END 2024-11-25 09:44 | disposition home or self-care (01) ==
LOC: RAD 09:44
PROVIDERS: PCP Family Medicine; Visit Provider Internal Medicine Cardiovascular Disease
DX: R06.02 Shortness of breath (principal); I51.7 Cardiomegaly; R93.1 Abnormal findings on diagnostic imaging of heart and coronary circulation; I34.81 Nonrheumatic mitral (valve) annulus calcification; I34.0 Nonrheumatic mitral (valve) insufficiency; I35.8 Other nonrheumatic aortic valve disorders; I35.0 Nonrheumatic aortic (valve) stenosis
CPT/HCPCS: 93306

== ENCOUNTER → 2024-11-27 14:24 | Outpatient (BNVA) | payer OTHER, SELFPAY | PROVIDERS: PCP Family Medicine; Visit Provider Nurse Practitioner Family | DX: D69.2 Other nonthrombocytopenic purpura (principal); L57.8 Other skin changes due to chronic exposure to nonionizing radiation; Z08 Encounter for follow-up examination after completed treatment for malignant neoplasm; Z85.828 Personal history of other malignant neoplasm of skin; L57.0 Actinic keratosis | CPT/HCPCS: 17004; 99213 ==

== ENCOUNTER 2024-12-10 15:56 | Emergency (ER) | payer OTHER, SELFPAY ==
[2024-12-10] VITALS (7 sets, daily range): BP systolic 146–170; BP diastolic 75–98; PULSE 70–87; RESP 18; TEMP 36.4; O2SAT 94–99; BMI 29.5
--- OUTSIDE RECORDS SUMMARY | 2024-12-10 16:01 | XMS_ITS | Encounter Summary ---
Author Organization [facility] Address [address] [place] [address] Care Team Providers Care Contract Clerk Automobile Name Role Phone Unavailable Primary Care Provider Unavailabl e Encounter Details Date Type Department Care Team (Latest Contact Info) Description 04/25/2001 Outpatient Historical [facility] Dermatology- [facility] [address] [place] [address] Jose Juan Lyons MD NO ADDRESS ON FILE SEBACEOUS CYST (Primary Dx); OTHER PSORIASIS Social History Tobacco Use Types Packs/Day Years Used Date Smoking Tobacco: Never Assessed Sex and Gender Information Value Date Recorded Sex Assigned at Not on file 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
--- OUTSIDE RECORDS SUMMARY | 2024-12-10 16:01 | XMS_ITS | Encounter Summary ---
Author Organization [facility] Address [address] [place] [address] Care Team Providers Care Elephant Tamer Name Role Phone Unavailable Primary Care Provider Unavailabl e Encounter Details Date Type Department Care Team (Latest Contact Info) Description 07/05/2000 Outpatient Historical [facility] Felix Harris MD [address] [place] [id number] Type II or unspecified type diabetes mellitus without mention of complication, not stated as uncontrolled (Primary Dx); Other malaise and fatigue; Nausea alone; Rash and other nonspecific skin eruption Social History Tobacco Use Types Packs/Day Years Used Date Smoking Tobacco: Never Assessed Sex and Gender Information Value Date Recorded Sex Assigned at Not on file Legal Sex Male 2:49 AM A R COLLECTIONS REP Gender Identity Not on file Sexual Orientation Not on file documented as of this encounter Plan of Treatment Not on file documented as of this encounter Visit Diagnoses Diagnosis Type II or unspecified type diabetes mellitus without mention of complication, not stated as uncontrolled- Primary Other malaise and fatigue Nausea alone Rash and other nonspecific skin eruption documented in this encounter
--- OUTSIDE RECORDS SUMMARY | 2024-12-10 16:01 | XMS_ITS | Encounter Summary ---
Author Organization [facility] Address [address] [facility] [place] [address] Care Team Providers Care String Studies Director Name Role Phone Unavailable Primary Care Provider Unavailabl e Encounter Details Date Type Department Care Team (Latest Contact Info) Description 01/06/2000 Outpatient Historical [facility] Mehrdad Diego MD Other symptoms involving digestive system(787.99) (Primary Dx) Social History Tobacco Use Types Packs/Day Years Used Date Smoking Tobacco: Never Assessed Sex and Gender Information Value Date Recorded Sex Assigned at Not on file 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
--- OUTSIDE RECORDS SUMMARY | 2024-12-10 16:01 | XMS_ITS | Encounter Summary ---
Author Organization [facility] Address [address] [place] [address] Care Team Providers Care Radiation / Chemistry Technician Name Role Phone Unavailable Primary Care Provider Unavailabl e Encounter Details Date Type Department Care Team (Latest Contact Info) Description 02/02/2000 Outpatient Historical [facility] Felix Harris MD [address] [place] [phone] Type II or unspecified type diabetes mellitus without mention of complication, not stated as uncontrolled (Primary Dx); Gouty arthropathy; Other psoriasis Social History Tobacco Use Types Packs/Day Years Used Date Smoking Tobacco: Never Assessed Sex and Gender Information Value Date Recorded Sex Assigned at Not on file 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
--- OUTSIDE RECORDS SUMMARY | 2024-12-10 16:01 | XMS_ITS | Encounter Summary ---
Author Organization [facility] Address [address] [place] [address] Care Team Providers Care Semiconductor Packages Platemaker Name Role Phone Unavailable Primary Care Provider Unavailabl e Encounter Details Date Type Department Care Team (Latest Contact Info) Description 03/07/2000 Outpatient Historical [facility] Dermatology- [facility] [place] [address] [place] [address] Jose Juan Lyons MD NO ADDRESS ON FILE Sebaceous cyst (Primary Dx) Social History Tobacco Use Types Packs/Day Years Used Date Smoking Tobacco: Never Assessed Sex and Gender Information Value Date Recorded Sex Assigned at Not on file 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
--- OUTSIDE RECORDS SUMMARY | 2024-12-10 16:01 | XMS_ITS | Encounter Summary ---
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
--- OUTSIDE RECORDS SUMMARY | 2024-12-10 16:01 | XMS_ITS | Encounter Summary ---
Author Organization [facility] Address [address] [place] [address] Care Team Providers Care Events Administrative Assistant Name Role Phone Unavailable Primary Care Provider Unavailabl e Encounter Details Date Type Department Care Team (Latest Contact Info) Description 03/06/2000 Outpatient Historical [facility] Felix Harris MD [address] [place] [address] Obesity, unspecified (Primary Dx); Anxiety state, unspecified Social History Tobacco Use Types Packs/Day Years Used Date Smoking Tobacco: Never Assessed Sex and Gender Information Value Date Recorded Sex Assigned at Not on file Legal Sex Male 2:49 AM DIRECTOR HEDIS Gender Identity Not on file Sexual Orientation Not on file documented as of this encounter Plan of Treatment Not on file documented as of this encounter Visit Diagnoses Diagnosis Obesity, unspecified- Primary Anxiety state, unspecified documented in this encounter
--- OUTSIDE RECORDS SUMMARY | 2024-12-10 16:01 | XMS_ITS | Encounter Summary ---
Author Organization [facility] Address [address] [place] [address] Care Team Providers Care River Driver Name Role Phone Unavailable Primary Care Provider Unavailabl e Encounter Details Date Type Department Care Team (Latest Contact Info) Description 01/30/2000 Outpatient Historical [facility] Dermatology- [facility] [place] [address] [place] [address] Jose Juan Lyons MD NO ADDRESS ON FILE Other psoriasis (Primary Dx); Benign malu skin trunk; Sebaceous cyst Social History Tobacco Use Types Packs/Day Years Used Date Smoking Tobacco: Never Assessed Sex and Gender Information Value Date Recorded Sex Assigned at Not on file Legal Sex Male 2:49 AM VP GENETIC Gender Identity Not on file Sexual Orientation Not on file documented as of this encounter Plan of Treatment Not on file documented as of this encounter Visit Diagnoses Diagnosis Other psoriasis- Primary Benign malu skin trunk Benign neoplasm of skin of trunk, except scrotum Sebaceous cyst documented in this encounter
--- OUTSIDE RECORDS SUMMARY | 2024-12-10 16:01 | XMS_ITS | Encounter Summary ---
Author Organization [facility] Address [address] [place] [address] Care Team Providers Care Concrete Mixer Name Role Phone Unavailable Primary Care Provider Unavailabl e Encounter Details Date Type Department Care Team (Latest Contact Info) Description 07/12/2001 Outpatient Historical [facility] Felix Harris MD [address] [place] [phone] NONINFEC GASTROENTERIT NEC (Primary Dx); ESOPHAGEAL REFLUX Social History Tobacco Use Types Packs/Day Years Used Date Smoking Tobacco: Never Assessed Sex and Gender Information Value Date Recorded Sex Assigned at Not on file 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
--- OUTSIDE RECORDS SUMMARY | 2024-12-10 16:02 | XMS_ITS | Encounter Summary ---
Author Organization [facility] Address [address] [place] [address] Care Team Providers Care Visual Aid Expert Name Role Phone Unavailable Primary Care Provider Unavailabl e Encounter Details Date Type Department Care Team (Latest Contact Info) Description 12/12/1999 Outpatient Historical [facility] Felix Harris MD [address] [place] [phone] Type II or unspecified type diabetes mellitus without mention of complication, not stated as uncontrolled (Primary Dx); Constipation; Other and unspecified hyperlipidemia; Gouty arthropathy Social History Tobacco Use Types Packs/Day Years Used Date Smoking Tobacco: Never Assessed Sex and Gender Information Value Date Recorded Sex Assigned at Not on file 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
--- OUTSIDE RECORDS SUMMARY | 2024-12-10 16:02 | XMS_ITS | Encounter Summary ---
Author Organization [facility] Address [address] [place] [facility] [place] [address] Care Team Providers Care Flatwork Catcher Name Role Phone Unavailable Primary Care Provider Unavailabl e Encounter Details Date Type Department Care Team (Latest Contact Info) Description 09/24/1997 Outpatient Historical [facility] Tirso Marc MD NO ADDRESS ON FILE Unspecified closed fracture of pelvis (CMS/HCC) (Primary Dx); Healed fx follow-up Social History Tobacco Use Types Packs/Day Years Used Date Smoking Tobacco: Never Assessed Sex and Gender Information Value Date Recorded Sex Assigned at Not on file Legal Sex Male 2:49 AM FORMULATOR Gender Identity Not on file Sexual Orientation Not on file documented as of this encounter Plan of Treatment Not on file documented as of this encounter Visit Diagnoses Diagnosis Unspecified closed fracture of pelvis (CMS/HCC)- Primary Unspecified closed fracture of pelvis Healed fx follow-up Treatment of healed fracture follow-up examination documented in this encounter
--- OUTSIDE RECORDS SUMMARY | 2024-12-10 16:02 | XMS_ITS | Encounter Summary ---
Author Organization [facility] Address [address] [place] [address] Care Team Providers Care Linux Vmware Administrator Name Role Phone Unavailable Primary Care Provider Unavailabl e Encounter Details Date Type Department Care Team (Latest Contact Info) Description 09/20/1999 Outpatient Historical [facility] Felix Harris MD [address] [place] [phone] Other malaise and fatigue (Primary Dx); Other abnormal blood chemistry Social History Tobacco Use Types Packs/Day Years Used Date Smoking Tobacco: Never Assessed Sex and Gender Information Value Date Recorded Sex Assigned at Not on file Legal Sex Male 2:49 AM RECRUITING INTERN Gender Identity Not on file Sexual Orientation Not on file documented as of this encounter Plan of Treatment Not on file documented as of this encounter Visit Diagnoses Diagnosis Other malaise and fatigue- Primary Other abnormal blood chemistry documented in this encounter
--- OUTSIDE RECORDS SUMMARY | 2024-12-10 16:02 | XMS_ITS | Encounter Summary ---
Author Organization [facility] Address [address] [facility] [place] [facility] [place] [address] Care Team Providers Care Plant Chief Name Role Phone Unavailable Primary Care Provider Unavailabl e Encounter Details Date Type Department Care Team (Latest Contact Info) Description 10/19/1997 Outpatient Historical [facility] Tirso Marc MD NO ADDRESS ON FILE Unspecified closed fracture of pelvis (CMS/HCC) (Primary Dx); Healed fx follow-up Social History Tobacco Use Types Packs/Day Years Used Date Smoking Tobacco: Never Assessed Sex and Gender Information Value Date Recorded Sex Assigned at Not on file 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
--- OUTSIDE RECORDS SUMMARY | 2024-12-10 16:02 | XMS_ITS | Encounter Summary ---
Author Organization [facility] Address [address] [place] [address] Care Team Providers Care Cab Supervisor Name Role Phone Unavailable Primary Care Provider Unavailabl e Encounter Details Date Type Department Care Team (Latest Contact Info) Description 09/29/1999 Outpatient Historical [facility] Felix Harris MD [address] [place] [phone] Gout, unspecified (Primary Dx); Gouty arthropathy; Inhibited sex excitement Social History Tobacco Use Types Packs/Day Years Used Date Smoking Tobacco: Never Assessed Sex and Gender Information Value Date Recorded Sex Assigned at Not on file 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
--- OUTSIDE RECORDS SUMMARY | 2024-12-10 16:02 | XMS_ITS | Encounter Summary ---
Author Organization [facility] [employer] [facility] Address [address] [place] [address] Phone Care Team Providers Care Automobile Brakes Bonder Name Role Phone Gretchen Ridley MD Primary Care Provider [phone] Encounter Details Date Type Department Care Team (Late Contact Info) Description 12/21/2018 Orders Only [facility] [address] [address] Zackary Rocha MD [facility] [address] Chronic kidney disease stage 4 (HCC) Social History Tobacco Use Types Packs/Day Years Used Date Smoking Tobacco: Never Smokeless Tobacco: Never Alcohol Use Standard Drinks/Week Comments Never 0 (1 standard drink = 0.6 oz pur e alcohol) AUDIT-C Answer Date Recorded Frequency of Alcohol Consumption Never 06/11/2018 Average Number of Drinks Not on file 019 Frequency of Binge Drinking Not on file 05/31 Sex and Gender Information Value Date Recorded Sex Assigned at Not on file Legal Sex Male 12:44 PM EST Gender Identity Not on file Sexual Orientation Not on file documented as of this encounter Plan of Treatment Upcoming Encounters Date Type Department Care Team (Late Contact Info) Description 02/17/2025 2:00 PM WATER RESOURCES BUSINESS SEGMENT LEADER Office Visit [facility] [address] [address] Tresa Knight NP [address] [place] [address] documented as of this encounter Visit Diagnoses Diagnosis Chronic kidney disease stage 4 (HCC) documented in this encounter Care Teams Automobile Brakes Bonder Relationship Specialty Start Date End Date Gretchen Ridley MD [address] [place] [address] PCP - General Family Medicine 12/23/20 documented as of this encounter
--- OUTSIDE RECORDS SUMMARY | 2024-12-10 16:02 | XMS_ITS | Encounter Summary ---
Author Organization [facility] Address [address] [place] [address] Care Team Providers Care Special Education Coordinator Name Role Phone Unavailable Primary Care Provider Unavailabl e Encounter Details Date Type Department Care Team (Latest Contact Info) Description 09/19/1999 Outpatient Historical [facility] Felix Harris MD [address] [place] [phone] Other abnormal blood chemistry (Primary Dx) Social History Tobacco Use Types Packs/Day Years Used Date Smoking Tobacco: Never Assessed Sex and Gender Information Value Date Recorded Sex Assigned at Not on file Legal Sex Male 2:49 AM STAFF SUBMARINE WARFARE OFFICER Gender Identity Not on file Sexual Orientation Not on file documented as of this encounter Plan of Treatment Not on file documented as of this encounter Visit Diagnoses Diagnosis Other abnormal blood chemistry- Primary documented in this encounter
--- OUTSIDE RECORDS SUMMARY | 2024-12-10 16:02 | XMS_ITS | Encounter Summary ---
Author Organization [email or web address] Address [address] [place] [address] Care Team Providers Care Cardiac Sonographer Name Role Phone Unavailable Primary Care Provider Unavailabl e Encounter Details Date Type Department Care Team (Latest Contact Info) Description 11/11/1999 Outpatient Historical [facility] Felix Harris MD [address] [place] [phone] Gout, unspecified (Primary Dx); Inhibited sex excitement; Dyspepsia and other specified disorders of function of stomach; Type II or unspecified type diabetes mellitus without mention of complication, not stated as uncontrolled Social History Tobacco Use Types Packs/Day Years Used Date Smoking Tobacco: Never Assessed Sex and Gender Information Value Date Recorded Sex Assigned at Not on file Legal Sex Male 2:49 AM CHILD NUTRITION MANAGER Gender Identity Not on file Sexual Orientation Not on file documented as of this encounter Plan of Treatment Not on file documented as of this encounter Visit Diagnoses Diagnosis Gout, unspecified- Primary Inhibited sex excitement Psychosexual dysfunction with inhibited sexual excitement Dyspepsia and other specified disorders of function of stomach Type II or unspecified type diabetes mellitus without mention of complication, not stated as uncontrolled documented in this encounter
--- OUTSIDE RECORDS SUMMARY | 2024-12-10 16:02 | XMS_ITS | Encounter Summary ---
Author Organization [facility] Address [address] [place] [address] Phone Care Team Providers Care Clay Hoister Name Role Phone Gretchen Ridley MD Primary Care Provider [phone] Encounter Details Date Type Department Care Team (Late Contact Info) Description 03/15/2019 Orders Only [facility] [address] [address] Zackary Rocha MD [facility] [address] Chronic kidney disease stage 4 [...] (Late Contact Info) Description 02/17/2025 2:00 PM SLURRY TANK OPERATOR Office Visit [facility] [address] [address] Tresa Knight NP [address] [place] [address] documented as of this encounter Visit Diagnoses Diagnosis Chronic kidney disease stage 4 (HCC) documented in this encounter Care Teams Clay Hoister Relationship Specialty Start Date End Date Gretchen Ridley MD [address] [place] [address] PCP - General Family Medicine 12/23/20 documented as of this encounter
--- OUTSIDE RECORDS SUMMARY | 2024-12-10 16:02 | XMS_ITS | Encounter Summary ---
Author Organization [facility] Address [address] [place] [address] Care Team Providers Care Art Objects Supervisor Name Role Phone Unavailable Primary Care Provider Unavailabl e Encounter Details Date Type Department Care Team (Latest Contact Info) Description 01/05/2000 Outpatient Historical [facility] Dermatology- [facility] [address] [place] [address] Jose Juan Lyons MD NO ADDRESS ON FILE Seborrheic dermatitis, unspecified (Primary Dx); Rosacea; Benign malu skin trunk; Dermatophytosis of nail Social History Tobacco Use Types Packs/Day Years Used Date Smoking Tobacco: Never Assessed Sex and Gender Information Value Date Recorded Sex Assigned at Not on file Legal Sex Male 2:49 AM HOG SAWYER Gender Identity Not on file Sexual Orientation Not on file documented as of this encounter Plan of Treatment Not on file documented as of this encounter Visit Diagnoses Diagnosis Seborrheic dermatitis, unspecified- Primary Rosacea Benign malu skin trunk Benign neoplasm of skin of trunk, except scrotum Dermatophytosis of nail documented in this encounter
--- OUTSIDE RECORDS SUMMARY | 2024-12-10 16:02 | XMS_ITS | Encounter Summary ---
Author Organization [facility] Address [address] [facility] Attn: Epic Prelude ADT [place] [address] Care Team Providers Care Diesel Pile Hammer Operator Name Role Phone Unavailable Primary Care Provider Unavailabl e Encounter Details Date Type Department Care Team (Late st Contact Info) Description 01/21/2000 Outpatient Historical Non-Staff, Physician NO ADDRESS ON FILE Social History Tobacco Use Types Packs/Day Years Used Date Smoking Tobacco: Never Assessed Sex and Gender Information Value Date Recorded Sex Assigned at Not on file Legal Sex Male 2:49 AM COMPTROLLER Gender Identity Not on file Sexual Orientation Not on file documented as of this encounter Plan of Treatment Not on file documented as of this encounter Visit Diagnoses Not on filedocumented in this encounter
--- OUTSIDE RECORDS SUMMARY | 2024-12-10 16:02 | XMS_ITS | Encounter Summary ---
Author Organization [facility] Address [address] [place] [address] Care Team Providers Care Dam Worker Name Role Phone Unavailable Primary Care Provider Unavailabl e Encounter Details Date Type Department Care Team (Latest Contact Info) Description 09/16/1999 Outpatient Historical [facility] Felix Harris MD [address] [place] [phone] Other malaise and fatigue (Primary Dx); Other abnormal blood chemistry; Orthostatic hypotension; Abdominal pain, unspecified site Social History Tobacco Use Types Packs/Day Years Used Date Smoking Tobacco: Never Assessed Sex and Gender Information Value Date Recorded Sex Assigned at Not on file Legal Sex Male 2:49 AM OSTEOPATHIC MEDICINE TEACHER Gender Identity Not on file Sexual Orientation Not on file documented as of this encounter Plan of Treatment Not on file documented as of this encounter Visit Diagnoses Diagnosis Other malaise and fatigue- Primary Other abnormal blood chemistry Orthostatic hypotension Abdominal pain, unspecified site documented in this encounter
--- OUTSIDE RECORDS SUMMARY | 2024-12-10 16:03 | XMS_ITS | Encounter Summary ---
Author Organization [facility] Address [address] [place] [address] Care Team Providers Care Vulcanizing Press Operator Name Role Phone Unavailable Primary Care Provider Unavailabl e Encounter Details Date Type Department Care Team (Latest Contact Info) Description 05/23/2002 Outpatient Historical [facility] Felix Harris MD [address] [place] [phone] IRRITABLE COLON (Primary Dx) Social History Tobacco Use Types Packs/Day Years Used Date Smoking Tobacco: Never Assessed Sex and Gender Information Value Date Recorded Sex Assigned at Not on file Legal Sex Male 2:49 AM REIMBURSEMENT COUNSELOR Gender Identity Not on file Sexual Orientation Not on file documented as of this encounter Plan of Treatment Not on file documented as of this encounter Visit Diagnoses Diagnosis Irritable bowel syndrome- Primary documented in this encounter
--- OUTSIDE RECORDS SUMMARY | 2024-12-10 16:03 | XMS_ITS | Encounter Summary ---
Author Organization [facility] Address [address] [place] [address] Care Team Providers Care Cleaning Validation Consultant Name Role Phone Unavailable Primary Care Provider Unavailabl e Encounter Details Date Type Department Care Team (Latest Contact Info) Description 09/06/2001 Outpatient Historical [facility] Felix Harris MD [address] [place] [phone] CONVULSIONS, OTHER (CMS/[facility]) (Primary Dx) Social History Tobacco Use Types Packs/Day Years Used Date Smoking Tobacco: Never Assessed Sex and Gender Information Value Date Recorded Sex Assigned at Not on file Legal Sex Male 2:49 AM EXECUTIVE PRODUCER PROMOS Gender Identity Not on file Sexual Orientation Not on file documented as of this encounter Plan of Treatment Not on file documented as of this encounter Visit Diagnoses Diagnosis Other convulsions- Primary documented in this encounter
--- OUTSIDE RECORDS SUMMARY | 2024-12-10 16:03 | XMS_ITS | Encounter Summary ---
Author Organization [facility] Address [address] [place] [address] Care Team Providers Care Hogshead Stock Clerk Name Role Phone Unavailable Primary Care Provider Unavailabl e Encounter Details Date Type Department Care Team ([facility] st Contact Info) Description 02/12/2019 Outside Records [facility] [address] [facility] [place] [address] Interface, Provider Social History Tobacco Use Types Packs/Day Years Used Date Smoking Tobacco: Never Smokeless Tobacco: Former Alcohol Use Standard Drinks/Week Comments Never 0 (1 standard drink = 0.6 oz pur e alcohol) AUDIT-C Answer Date Recorded Q1: How often do you have a drink containing alc ohol? Never 11/22/2018 Average Number of Drinks Not on file 019 Frequency of Binge Drinking Not on file 11/01 PHQ-2 Answer Date Recorded PHQ-2 Score 0 02/05/2019 Sex and Gender Information Value Date Recorded Sex Assigned at Not on file Legal Sex Male 9:52 AM CDT Gender Identity Not on file Sexual Orientation Not on file documented as of this encounter Plan of Treatment Not on file documented as of this encounter Visit Diagnoses Not on filedocumented in this encounter Additional Health Concerns Assessment Noted Time PHQ-9 Depression Total Score: 0 02/06/20 19 9:24 AM CHIEF OPERATING ENGINEER documented as of this encounter
--- OUTSIDE RECORDS SUMMARY | 2024-12-10 16:03 | XMS_ITS | Encounter Summary ---
Author Organization [facility] Address [address] [place] [address] Care Team Providers Care Charter And Tour Bus Driver Name Role Phone Unavailable Primary Care Provider Unavailabl e Encounter Details Date Type Department Care Team (Latest Contact Info) Description 12/03/2002 Outpatient Historical HIS [facility] Jesus, Jean-Claude Valdez MD [address] [facility] [address] [place] [address] CHOLELITHIASIS NOS (Primary Dx) Social History Tobacco Use Types Packs/Day Years Used Date Smoking Tobacco: Never Assessed Sex and Gender Information Value Date Recorded Sex Assigned at Not on file Legal Sex Male 2:49 AM DIRECTOR HOME Gender Identity Not on file Sexual Orientation Not on file documented as of this encounter Plan of Treatment Not on file documented as of this encounter Visit Diagnoses Diagnosis Calculus of gallbladder without mention of cholecystitis or obstruction- Primary documented in this encounter
--- OUTSIDE RECORDS SUMMARY | 2024-12-10 16:03 | XMS_ITS | Encounter Summary ---
Author Organization [facility] Address [address] [place] [address] Care Team Providers Care Composing Machine Operator Name Role Phone Unavailable Primary Care Provider Unavailabl e Encounter Details Date Type Department Care Team (Latest Contact Info) Description 05/08/2002 Outpatient Historical [facility] Medicine [place] [facility] [address] [place] [address] Mehrdad Diego MD Rectal/anal hemorrhage (Primary Dx); ESOPHAGEAL REFLUX Social History Tobacco Use Types Packs/Day Years Used Date Smoking Tobacco: Never Assessed Sex and Gender Information Value Date Recorded Sex Assigned at Not on file Legal Sex Male 2:49 AM PASSENGER SERVICE MANAGER Gender Identity Not on file Sexual Orientation Not on file documented as of this encounter Plan of Treatment Not on file documented as of this encounter Visit Diagnoses Diagnosis Rectal/anal hemorrhage- Primary Hemorrhage of rectum and anus Esophageal reflux documented in this encounter
--- OUTSIDE RECORDS SUMMARY | 2024-12-10 16:03 | XMS_ITS | Encounter Summary ---
Author Organization [facility] Address [address] [place] [address] Care Team Providers Care Cardiographer Name Role Phone Unavailable Primary Care Provider Unavailabl e Encounter Details Date Type Department Care Team (Latest Contact Info) Description 11/24/2005 Outpatient Historical [facility] Dermatology- [facility] [address] [place] [address] Jose Juan Lyons MD NO ADDRESS ON FILE Other Psoriasis and Similar Disorders (Primary Dx); Other Seborrheic Keratosis Social History Tobacco Use Types Packs/Day Years Used Date Smoking Tobacco: Never Assessed Sex and Gender Information Value Date Recorded Sex Assigned at Not on file Legal Sex Male 2:49 AM AVIATION SAFETY TECHNICIAN Gender Identity Not on file Sexual Orientation Not on file documented as of this encounter Plan of Treatment Not on file documented as of this encounter Visit Diagnoses Diagnosis Other psoriasis- Primary Other seborrheic keratosis documented in this encounter
--- OUTSIDE RECORDS SUMMARY | 2024-12-10 16:03 | XMS_ITS | Clinical Summary ---
Author Organization [facility] imagine Address [address] [place] [address] Care Team Providers Care General Ledger Accountant Name Role Phone Unavailable Primary Care Provider Unavailabl e Allergies Active Allergy Reactions Criticality Noted Date Comments Sulfamethoxazole-Tri methoprim Other (See Comments) High 11/17/2016 Short term paralysis per patient Short term paralysis per patient Medications aspirin 81 MG EC tablet Take 1 tablet by mouth. Active allopurinol (ZYLOPRIM) 300 MG tablet Take 150 mg by mouth daily. Active amLODIPine (NORVASC) 2.5 MG tablet Take 1 tablet by mouth. Active atorvastatin (LIPITOR) 20 MG tablet Take 20 mg by mouth daily. Active cholecalciferol (VITAMIN D3) 2,000 units Cap capsule Take 1,000 Units by mouth. Active furosemide (LASIX) 80 MG tablet Take 1 tablet by mouth. Active folic acid (FOLVITE) 1 MG tablet Take 1 mg by mouth daily. Active cyanocobalamin (VITAMIN B-12) 1,000 mcg/mL injection Inject 1,000 mcg into the muscle every 30 (thirty) days. Active pantoprazole (PROTONIX) 40 MG tablet Take 1 tablet by mouth daily. Active pregabalin (LYRICA) 75 MG capsule Take 75 mg by mouth. Active senna-docusate (PERICOLACE) 8.6-50 mg Take 2 tablets by mouth. Active HYDROcodone-adrianna taminophen (NORCO) 7.5-325 mg per tablet Take 1 tablet by mouth every 6 (six) hours as needed for pain. Active levothyroxine (SYNTHROID, LEVOTHROID) 100 MCG tablet Take 100 mcg by mouth daily. Active apremilast (OTEZLA) 30 mg Tab Take 30 mg by mouth daily. Active insulin aspart protamine-insul in aspart (NOVOLOG 70/30) 100 unit/mL (70-30) injection Inject 100 Units under the skin 2 (two) times a day before meals. 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, initial encounter 02/05/2019 Essential hypertension 08/17/2018 Stage 4 chronic kidney disease 08/17/2018 Multiple nodules of lung 11/20/2016 Splenomegaly 11/20/2016 B12 deficiency 05/10/2016 Family History Medical History Relation Comments Scoliosis Father Cancer Maternal Grandfather Diabetes Mother Hypertension Mother Stroke Mother Relation Status Comments Father Maternal Grandfather Mother Social History Tobacco Use Types Packs/Day Years [...] Answer Date Recorded PHQ-2 Score 0 02/05/2019 Health Literacy Answer Date Recorded Health Literacy 3 01/05/2021 Sex and Gender Information Value Date Recorded Sex Assigned at Not on file Legal Sex Male 9:52 AM CDT Gender Identity Not on file Sexual Orientation Not on file Last Filed Vital Signs Vital Sign Reading Time Taken Comments Blood Pressure 142/77 02/05/2019 1:38 PM SHIFTMAN Pulse 73 02/05/2019 1:38 PM SHIFTMAN Temperature 36.7 C (98 F) 02/05/2019 1:38 PM SHIFTMAN Respiratory Rate - - Oxygen Saturation 100% 02/05/2019 9:20 AM SHIFTMAN Inhaled Oxygen Concentration - - Weight 121.1 kg (267 lb) 02/05/2019 1:38 PM SHIFTMAN Height 188 cm (6' 2 ) 02/05/2019 1:38 PM SHIFTMAN Body Mass Index 34.28 02/05/2019 1:38 PM SHIFTMAN Plan of Treatment Health Maintenance Due Date Last Done Comments Annual Wellness Exam 1943 Diabetic Foot Exam 1943 Diabetic Retinal Exam 1943 Kidney Evaluation in Diabetes 1943 Depression Screening 11/07/1961 Pneumococcal Vaccine 50+ (1 of 2 - PCV) 11/07/1962 TDAP/DTaP/TD Vaccines (1 - Tdap) 11/07/1962 Zoster Vaccine (1 of 2) 11/07/1993 Respiratory Syncytial Virus (RSV) Immunization - pts and pts aged 60 yrs+ (1 - 1-dose 75+ series) 11/07/2018 Hemoglobin A1C 10/21/2020 04/23/2020, 02/05/2019 COVID-19 Vaccine (1 - 2023-2 5 season) 2024 Influenza Series (#1) 2024 Hepatitis B Vaccine Aged Out No longe r eligible based on patient's age to complete this topic Meningococcal B Vaccine Aged Out No l onger eligible based on patient's age to complete this topic Procedures Procedure Name Priority Date/Time Associated Diagnosis Comments HEMOGLOBIN A1C Routine 02/05/2019 12:16 PM SHIFTMAN Type 2 diabetes mellitus with diabetic polyneuropathy, with long-term current use of insulin (HCC) from Last 3 Months or Most Recently Relevant to Health Maintenance Results * (ABNORMAL) HbA1c (02/05/2019 12:16 PM SHIFTMAN) Hemoglobin A1C 7.5(H) 4.0 - 6.0 % 02/05/2019 3:29 PM SHIFTMAN [facility] Blood Venipuncture / Unknown 02/05/2019 12:16 PM SHIFTMAN 02/05/2019 12:41 PM SHIFTMAN Narrative [facility] - 02/05/2019 3:29 PM SHIFTMAN Conditions that shorten red cell survival, such as hemolytic anemia or the presence of unstable hemoglobins may yield falsely depressed results. Conditions that increase red cell survival such as iron deficiency anemia may yield elevated results. us Jerzy Mccollum MD LAB BLOOD ORDERABLES Final Result [facility] [address] [place] [address], from Last 3 Months or Most Recently Relevant to Health Maintenance Insurance MEDICARE PART A & B [facility] OUT OF STATE
--- OUTSIDE RECORDS SUMMARY | 2024-12-10 16:03 | XMS_ITS | Encounter Summary ---
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
--- OUTSIDE RECORDS SUMMARY | 2024-12-10 16:03 | XMS_ITS | Encounter Summary ---
[facility] Organization [facility] Address [address] [place] [address] Care Team Providers Care Channel Sales Director Name Role Phone Unavailable Primary Care Provider Unavailabl e Encounter Details Date Type Department Care Team (Latest Contact Info) Description 05/06/2002 Outpatient Historical [facility] Felix Harris MD [address] [place] [phone] GASTROINTEST HEMORR NOS (Primary Dx); STOMACH FUNCTION DIS NEC Social History Tobacco Use Types Packs/Day Years Used Date Smoking Tobacco: Never Assessed Sex and Gender Information Value Date Recorded Sex Assigned at Not on file 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
--- OUTSIDE RECORDS SUMMARY | 2024-12-10 16:03 | XMS_ITS | Encounter Summary ---
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
--- OUTSIDE RECORDS SUMMARY | 2024-12-10 16:03 | XMS_ITS | Clinical Summary ---
Author Organization [facility] Address [address] [address] Care Team Providers Care Soiled Linen Distributor Name Role Phone Gretchen Ridley MD Primary Care Provider [phone] Allergies Active Allergy Reactions Criticality Noted Date Comments Sulfamethoxazole-Trimetho prim High 11/17/2016 Short term paralysis per patient Medications aspirin 81 MG tablet Take 1 tablet by mouth 1 (one) time each day Active allopurinol (ZYLOPRIM) 100 MG tablet Take 200 mg by mouth 1 (one) time each day Active atorvastatin (LIPITOR) 40 MG tablet Take 40 mg by mouth 1 (one) time each day in the evening Active carvedilol (COREG) 12.5 MG tablet Take 12.5 mg by mouth 2 (two) times a day Active pantoprazole (PROTONIX) 40 MG EC tablet Take 1 tablet by mouth every morning Active senna-docusate (PERICOLACE) 8.6-50 MG per tablet Take 2 tablets by mouth 1 (one) time each day Active Cholecalciferol (Vitamin D) 25 MCG (1000 UT) tablet Take 1 tablet by mouth 1 (one) time each day Active predniSONE 5 MG tablet Take 5 mg by mouth 1 (one) time each day Active Semaglutide,0.25 or 0.5MG/DOS, (Ozempic, 0.25 or 0.5 MG/DOSE,) 2 MG/1.5ML solution pen-injector Inject under the skin Active amLODIPine (NORVASC) 10 MG tablet Take 5 mg by mouth 1 (one) time each day Active ferrous sulfate 325 (65 Fe) MG tablet Take 325 mg by mouth 1 (one) time each day with breakfast Active calcitriol (Rocaltrol) 0.25 MCG capsuleIndications:Seco ndary hyperparathyroidism of renal origin (HCC) Take 1 capsule (0.25 mcg total) by mouth 1 (one) time each day 90 capsule 3 08/23/19 Active bumetanide (BUMEX) 2 MG tabletIndications:Local ized edema Take 1 tablet (2 mg total) by mouth in the morning and 1 tablet (2 mg total) in the evening. 180 tablet 3 08/23/19 23 Active folic acid (FOLVITE) 1 MG tablet Take 1 mg by mouth 1 (one) time each day Active omega-3 (FISH OIL) 1000 MG capsule Take by mouth 1 (one) time each day Active LACTOBACILLUS PO Take 1 tablet by mouth 1 (one) time each day Active insulin NPH-insulin regular (NovoLIN) (70-30) 100 UNIT/ML injection Inject 50 Units under the skin in the morning and 50 Units in the evening. 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 Anemia in chronic kidney disease 02/05/2019 Coronary arteriosclerosis 02/05/2019 Gout 02/05/2019 Hyperlipidemia 02/05/2019 Type 2 diabetes mellitus 02/05/2019 Chronic kidney disease, stage 4 (severe) 019 Essential (primary) hypertension 08/17/2018 Acute nontraumatic kidney injury 08/17/2018 Encounters Date Type Department Care Team Description 11/11/2024 1:30 PM CDT Office Visit [facility] [address] [place] [address] Tresa Knight, PLATE WORKER Type 2 diabetes mellitus, not otherwise specified (HCC) (Primary Dx); Chronic gout due to renal impairment without tophus, not otherwise specified; Essential (primary) hypertension; Chronic kidney disease, stage 4 (severe) (HCC); Anemia in chronic kidney disease 11/10/2024 Documentation Only [facility] [address] [facility] [address] [place] [phone] Ashley Pedersen MA 11/10/2024 Documentation Only [facility] [address] [place] [phone] Ashley Pedersen MA 11/04/2024 Telephone [facility], [facility] [address] [place] [address] Yojana Dolan MD 09/15/2024 Documentation Only [facility], [facility] [address] [place] [phone] Ashley Pedersen MA from Last 3 Months Immunizations Immunization Administration Dates Next Due Influenza, Unspecified 12/31/2018,12/31/2016 Family History Medical History Relation Comments Heart disease Father 2 Diabetes Mother 2 Hypertension Mother 2 Relation Status Comments Father 1 Father 2 Mother 1 Mother 2 Social History Tobacco Use Types Packs/Day Years Used Date Smoking Tobacco: Never Smokeless Tobacco: Never Tobacco Cessation:Counseling Given: Not Answered Alcohol Use Standard Drinks/Week Comments Never 0 [...] Sign Reading Time Taken Comments Blood Pressure 120/70 11/11/2024 1:25 PM CDT Pulse 76 11/11/2024 1:25 PM CDT Temperature 36.2 C (97.1 F) 06/23/2020 10:20 AM CDT Respiratory Rate - - Oxygen Saturation 98% 05/06/2024 1:49 PM DEVELOPMENT ENGINEER Inhaled Oxygen Concentration - - Weight 104 kg (230 lb) 11/11/2024 1:25 PM CDT Height 188 cm (6' 2 ) 11/11/2024 1:25 PM CDT Body Mass Index 29.53 11/11/2024 1:25 PM CDT Plan of Treatment Upcoming Encounters Date Type Department Care Team (Late st Contact Info) Description 02/17/2025 2:00 PM DEVELOPMENT ENGINEER Office Visit [facility] [address] [place] [address] Tresa Knight NP [address] [facility] [address] [place] [address] Health Maintenance Due Date Last Done Comments Pneumococcal Vaccine: 50+ Years (1 of 2 - PCV) 11/07/1962 Diabetes: Ophthalmology Exam 11/21/2018 Diabetes: Pedal Pulse Checked 11/21/2018 Diabetes: Sensory Foot Exam 11/21/2018 Diabetes: Visual Foot Exam 11/21/2018 Diabetes: Hemoglobin A1C 01/24/2022 022, 04/23/2020, 10/08/2019, Additional history exists Influenza Vaccine (#1) 2024 2, 12/31/2018, 12/31/2016 Hepatitis B Vaccine Aged Out No longe r eligible based on patient's age to complete this topic Procedures Procedure Name Priority Date/Time Associated Diagnosis Comments CBC (INCLUDES DIFF/PLT) (EXTERNAL LAB ENTRY) Routine 11/04/2024 RENAL FUNCTION PANEL (EXTERNAL LAB ENTRY) Routine 11/04/2024 ALBUMIN/CREATININE, RANDOM URINE (EXTERNAL RESULT ENTRY) Routine 11/04/2024 HEMOGLOBIN A1C (EXTERNAL RESULT ENTRY) Routine 10/24/2021 10:12 AM CDT from Last 3 Months or Most Recently Relevant to Health Maintenance Results * Albumin/Creatinine in Urine (11/04/2024) Albumin, Urine 309.01 mg/dL Creatinine, Urine Random 68.94 mg/dL Alb/Creat Ratio, Ur 448.23 mg/g Creat Urine Urine specimen / Unknown 11/04/2024 Ashley Brown MA - 11/10/2024 5:11 PM CDT Performing Lab: [facility] [CLIA# [id number]] [address] [place] [address] us Yojana Dolan MD LAB URINE ORDERABLES Edited R esult - Final * CBC (Includes Diff/Plt) (External Lab) (11/04/2024) WBC 7.0 K/uL Red Blood Cell Count 3.54 Hemoglobin 11.4 g/dL Hematocrit 33.8 % MCV 95.5 MCH 32.2 MCHC 33.7 RDW 14.3 Platelet Count 204 Absolute Neutrophils 5.27 Absolute Lymphocytes 0.94 Absolute Monocytes 0.54 Absolute Eosinophils 0.12 Absolute Basophils 0.06 Lymphocytes 13.4 Monocytes 7.7 Eosinophils 1.7 Basophils 0.9 Blood 11/04/2024 Narrative Ashley Pedersen MA - 11/10/2024 5:14 PM CDT Performing Lab: [facility] [CLIA# [id number]] [address] [place] [address] us Yojana Dolan MD LAB BLOOD ORDERABLES Final Re sult * Renal Function Panel (External Lab) (11/04/2024) Glucose 105 mg/dL BUN 42 mg/dL eGFR 21 Sodium 142 mEq/L Potassium 5.1 mEq/L Chloride 102 Carbon Dioxide 26 mmol/L Calcium 8.8 mg/dL Phosphorus, Serum 4.0 mg/dL Albumin (Blood) 4.2 g/dL Creatinine 2.91 mg/dL Blood 11/04/2024 us Yojana Dolan MD LAB BLOOD ORDERABLES Final Re sult * Hemoglobin A1C (10/24/2021 10:12 AM CDT) Hemoglobin A1C 8.9 Blood specimen (specimen) Venous blood / Unknown 10/24/2021 10:12 AM CDT Narrative Brigette Donahue - 10/26/2021 8:54 AM CDT Performing Lab: [facility] [CLIA# [id number]] [address] [address] us Gretchen Ridley MD LAB BLOOD ORDERABLES Final Resul t from Last 3 Months or Most Recently Relevant to Health Maintenance Insurance RR [id number] [id number] [facility] Reg[place] 1,2,3 (VACCN) Care Teams Soiled Linen Distributor Relationship Specialty Start Date End Date Gretchen Ridley MD [address] [place] [address] PCP - General Family Medicine 12/23/20
--- OUTSIDE RECORDS SUMMARY | 2024-12-10 16:03 | XMS_ITS | Encounter Summary ---
Author Organization [facility] Address [address] [place] [address] Care Team Providers Care Welder Shielded Metal Arc Name Role Phone Unavailable Primary Care Provider Unavailabl e Encounter Details Date Type Department Care Team (Latest Contact Info) Description 05/05/2002 Outpatient Historical [facility] Medicine [place] [address] [phone] Mehrdad Diego MD Rectal/anal hemorrhage (Primary Dx) Social History Tobacco Use Types Packs/Day Years Used Date Smoking Tobacco: Never Assessed Sex and Gender Information Value Date Recorded Sex Assigned at Not on file 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
--- OUTSIDE RECORDS SUMMARY | 2024-12-10 16:03 | XMS_ITS | Encounter Summary ---
Author Organization [facility] Address [address] [facility] [place] [address] Care Team Providers Care Hat Block Maker Name Role Phone Unavailable Primary Care Provider Unavailabl e Encounter Details Date Type Department Care Team ([facility] st Contact Info) Description 02/13/2019 Outside Records [facility] [address] [facility] [place] [address] Interface, Provider Social History Tobacco Use Types [...] Total Score: 0 02/06/20 19 9:24 AM LIVE TRUCK TECHNICIAN documented as of this encounter
--- OUTSIDE RECORDS SUMMARY | 2024-12-10 16:03 | XMS_ITS | Clinical Summary ---
Author Organization [facility] Address [address] [place] [address] Phone Care Team Providers Care Hand Drawer In Helper Name Role Phone Zackary Rocha MD Unavailable [phone] Gretchen Ridley MD Primary Care Provider [phone] Allergies Active Allergy Reactions Criticality Noted Date Comments Sulfamethoxazole-Tri methoprim Other (See Comments) High 11/17/2016 Short term paralysis per patient Medications pantoprazole (PROTONIX) [address] tablet Take one tablet (40 mg total) by mouth one (1) time a day Active carvedilol (COREG) 6.25 MG tablet Take two tablets (12.5 mg total) by mouth in the morning and two tablets (12.5 mg total) in the evening. Take with meals. Active allopurinol (ZYLOPRIM) 300 MG tablet Take one-half tablet (150 mg total) by mouth daily after breakfast Active atorvastatin (LIPITOR) 20 MG tablet Take one tablet (20 mg total) by mouth one (1) time a day Active aspirin 81 MG EC tablet Take one tablet (81 mg total) by mouth one (1) time a day Active mometasone (ASMANEX) 220 mcg (30 doses) powder for inhalation Inhale one puff into the lungs daily as needed Active amLODIPine (NORVASC) 2.5 MG tablet Take one tablet (2.5 mg total) by mouth one (1) time a day Active docosahexaenoic acid-epa 120-180 mg capsule Take 1 capsule by mouth Active predniSONE (DELTASONE) 5 MG tablet Take one tablet (5 mg total) by mouth one (1) time a day Active bumetanide (BUMEX) 2 MG tablet Take one tablet (2 mg total) by mouth 3 Active ferrous sulfate 325 MG (65 FE) tablet Take one tablet (325 mg total) by mouth Active semaglutide (OZEMPIC) 0.25 mg or 0.5 mg(2 mg/1.5 mL) PnIj Inject under the skin Active Active Problems Problem Noted Date Diagnosed Date Splenomegaly 11/20/2016 Multiple nodules of lung 11/20/2016 B12 deficiency 05/10/2016 Essential hypertension Type 2 diabetes mellitus Diabetic neuropathy CKD (chronic kidney disease) stage 4, GFR 15-29 ml/min CAD (coronary artery disease) Gout Psoriasis Hyperlipidemia GERD (gastroesophageal reflux disease) Anemia due to stage 4 chronic kidney disease Diverticulosis History of colon polyps Immunizations Immunization Administration Dates Next Due Influenza (Historical) 01/04/2022,01/01/2020,04/2018,12/31/2016 Family History Medical History Relation Name Comments Stroke Brother Hypertension Maternal Grandmother Stroke Maternal Grandmother Diabetes Mother Stroke Mother Hemochromatosis Son Relation Name Status Comments Brother Maternal Grandmother Mother Son Social History Tobacco Use Types Packs/Day Years Used Date Smoking Tobacco: Never Passive Smoke Exposure: Yes Smokeless Tobacco: Former Chew Tobacco Cessation:Counseling Given: No Alcohol Use Standard Drinks/Week Comments No 0 (1 standard drink = 0.6 oz pur e alcohol) Overall Financial Resource Strain (CARDIA) Answe r Date Recorded Difficulty of Paying Living Expenses Not very nunez rd 09/16/2018 Hunger Vital Sign Answer Date Recorded Worried About Running Out of Food in the Last Ye ar Never true 09/16/2018 Ran Out of Food in the Last Year Never true 09/16/2018 PRAPARE - Transportation Answer Date Re corded Lack of Transportation (Medical) No 09/16/2018 Lack of Transportation (Non-Medical) No 09/16/2018 Sex and Gender Information Value Date Recorded Sex Assigned at Not on file Legal Sex Male 12:27 PM STRIPPER SOFT PLASTIC Gender Identity Not on file Sexual Orientation Not on file Occupation Industry Job Start Date Job End Date [employer] Not on file Not on file Not on file Last Filed Vital Signs Vital Sign Reading Time Taken Comments Blood Pressure 101/60 09/18/2022 2:14 PM CDT Pulse 86 09/18/2022 2:14 PM CDT Temperature 36.3 C (97.3 F) 09/18/2022 2:14 PM CDT Respiratory Rate 16 09/18/2022 2:14 PM CDT Oxygen Saturation 96% 09/18/2022 2:14 PM CDT Inhaled Oxygen Concentration - - Weight 104.3 kg (230 lb) 09/18/2022 2:14 PM CDT Height 188 cm (6' 2 ) 09/18/2022 2:14 PM CDT Body Mass Index 29.53 09/18/2022 2:14 PM CDT Plan of Treatment Health Maintenance Due Date Last Done Comments Annual Depression Screening 11[birth year]07/1956 Diabetic Eye Exam WITHOUT Retinopathy 11/07/1961 Pneumococcal Vaccine Age 50+ (1 of 2 - PCV) 11/07/1962 Medicare Subsequent AWV [id number] 10/31/2009 Diabetic Foot Exam 10/04/2016 Colorectal Cancer Screening Annual FOBT/FIT Test 05/15/2017 05/15/2016 RSV Immunization Pa tients or 60+ Years (1 - 1-dose 75+ series) 11/07/2018 Flu Vaccine (#1) 12/01/2024 01/04/2022, 04/2019, 12/31/2018, Additional history exists Influenza Vaccine 12/01/2024 01/04/2022, , 12/31/2018, Additional history exists Procedures Procedure Name Priority Date/Time Associated Diagnosis Comments OCCULT BLOOD SCREENING Routine 05/15/2016 10:32 AM STRIPPER SOFT PLASTIC Anemia in CKD (chronic kidney disease) from Last 3 Months or Most Recently Relevant to Health Maintenance Results * Occult Blood Screening (05/15/2016 10:32 AM STRIPPER SOFT PLASTIC) Occult blood, stool #1 Negative Negative 05/15/2016 10:34 AM STRIPPER SOFT PLASTIC [facility] Comment:COLLECTED 05/09/16 Occult blood, stool #2 Negative Negative 05/15/2016 10:34 AM STRIPPER SOFT PLASTIC [facility] Comment:COLLECTED 05/10/16 Occult blood, stool #3 Negative Negative 05/15/2016 10:[address] [facility] Comment:COLLECTED 05/11/16 Stool 05/15/2016 10:3 2 AM STRIPPER SOFT PLASTIC 05/15/2016 10:32 AM STRIPPER SOFT PLASTIC us Mike Maxwell Jr., MD BODY FLUIDS AND STOO LS ORDERABLES Final Result [facility] [address] [place] [address], [facility] [phone] from Last 3 Months or Most Recently Relevant to Health Maintenance Insurance MEDICARE [facility] [employer] [facility] [employer] Care Teams Hand Drawer In Helper Relationship Specialty Start Date End Date Gretchen Ridley MD [facility] [place] [address] PCP - General Family Medicine 06/29/20 Zackary Rocha MD [address] [place] [address] Nephrology 03/24/19
--- OUTSIDE RECORDS SUMMARY | 2024-12-10 16:03 | XMS_ITS | Encounter Summary ---
Author Organization [facility] Address [address] [place] [address] Care Team Providers Care Epic Ambulatory Analysts Name Role Phone Unavailable Primary Care Provider Unavailabl e Encounter Details Date Type Department Care Team (Latest Contact Info) Description 12/17/2002 Outpatient Historical [facility] Jesus, Jean-Claude Valdez MD [address] [facility] [address] [place] [id number] SURGERY FOLLOWUP, UNSPEC (Primary Dx) Social History Tobacco Use Types Packs/Day Years Used Date Smoking Tobacco: Never Assessed Sex and Gender Information Value Date Recorded Sex Assigned at Not on file Legal Sex Male 2:49 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
--- OUTSIDE RECORDS SUMMARY | 2024-12-10 16:03 | XMS_ITS | Encounter Summary ---
Author Organization [facility] Address [address] [place] [address] Care Team Providers Care Phosphatic Fertilizer Supervisor Name Role Phone Unavailable Primary Care Provider Unavailabl e Encounter Details Date Type Department Care Team ([facility] st Contact Info) Description 02/18/2019 Outside Records [facility] [address] [place] [address] Interface, Provider Social History Tobacco Use Types [...] Total Score: 0 02/06/20 19 9:24 AM PHARMACEUTICAL ASSISTANT documented as of this encounter
--- OUTSIDE RECORDS SUMMARY | 2024-12-10 16:03 | XMS_ITS | Clinical Summary ---
Author Organization [facility] Address [address] [place] [address] Care Team Providers Care Ranch Hand Livestock Name Role Phone Unavailable Primary Care Provider Unavailabl e Medications metFORMIN (GLUCOPHAGE) 850 mg Oral tablet Take 850 mg by mouth. Active HYDROcodone-adrianna taminophen (NORCO) 5-325 mg Oral tablet Take 1 Tab by mouth every 4 hours as needed. Active folic acid (FOLVITE) 1 mg Oral tablet Take 1 mg by mouth daily. Active furosemide (LASIX) 20 mg Oral tablet Take 20 mg by mouth daily. Active LORazepam (ATIVAN) 0.5 mg Oral tablet Take 0.5 mg by mouth every 6 hours as needed. Active HUM INSULIN NPH/REG INSULIN HM (NOVOLIN 70/30 SUBCUT) Inject by subcutaneous injection. Active gabapentin (NEURONTIN) 400 mg Oral capsule Take 400 mg by mouth 3 times daily. Active allopurinol (ZYLOPRIM) 300 mg Oral tablet Take 300 mg by mouth daily. Active lisinopril (PRINIVIL) 20 mg Oral tablet Take 20 mg by mouth daily. Active aspirin (JUAN ANTONIO) 81 mg Oral Tab Take by mouth. Active methotrexate (RHEUMATREX) 2.5 mg Oral Tab Take 8.5 mg by mouth every 7 days. Active methotrexate (RHEUMATREX) 2.5 mg Oral Tab Take 2.5 mg by mouth every 7 days. Active CLOBEX 0.05 % [place], Non-Aerosol APPLY TO AFFECTED AREA TWO TIMES DAILY. USE FOR TREATING PSORIASIS OF THE SCALP PER DIRECTIONS 59 mL 3 4 Active clobetasol (TEMOVATE) 0.05 % Ointment Apply to affected area 2 times daily. 30 Gram 2 4 Active Active Problems No known active problems Social History Tobacco Use Types Packs/Day Years Used Date Smoking Tobacco: Never Smokeless Tobacco: Former Chew Alcohol Use Standard Drinks/Week Comments No 0 (1 standard drink = 0.6 oz pur e alcohol) Sex and Gender Information Value Date Recorded Sex Assigned at Not on file Legal Sex Male 2:49 AM SQUAD BOSS Gender Identity Not on file Sexual Orientation Not on file Last Filed Vital Signs Vital Sign Reading Time Taken Comments Blood Pressure 126/78 06/14/2012 1:58 PM CDT Pulse 77 06/14/2012 1:58 PM CDT Temperature - - Respiratory Rate - - Oxygen Saturation - - Inhaled Oxygen Concentration - - Weight 117.9 kg (260 lb) 06/14/2012 1:58 PM CDT Height 188 cm (6' 2 ) 06/14/2012 1:58 PM CDT Body Mass Index 33.38 06/14/2012 1:58 PM CDT Plan of Treatment Health Maintenance Due Date Last Done Comments DTAP/TDAP/TD VACCINES (1 - Tdap) 11/07/1962 PNEUMOCOCCAL VACCINE 50+ YEARS (1 of 1 - PCV) 11/07/18 94 ZOSTER VACCINE (1 of 2) 11/07/1993 RSV VACCINE (60+ or ) (1 - 1-dose 75+ series) 11/07/2018 INFLUENZA VACCINE (#1) 2024 COLORECTAL SCREENING Discontinued 05/08/2002 Colorectal Cancer Screening Discontinued FIT-DNA Q 3 years Discontinued FIT/FOBT Q 1 year Discontinued Flex Sig/CT Colonography Q 5 years Discontinued Insurance [address] [place] [id number] MEDICARE PART A AND B BCBS SUPP
--- OUTSIDE RECORDS SUMMARY | 2024-12-10 16:04 | XMS_ITS | Patient Health Record ---
Author Organization [facility] Address [address] [place] [address] Care Team Providers Care Tuyere Fitter Name Role Phone Gretchen Sanders MD Primary Care Provider Zahraa Kwong Unavailable [phone] Jw Serrano Unavailable [phone] Erin Lagos Unavailable [phone] Allergies Allergen (clinical drug ingredient) Drug/Non Drug Allergy documented on EMR Reaction Allergy Type Onset Date Status No Known Drug Allergy Unknown Drug Allergy Active Results Component Value Reference Range Notes XR Outside CD (Not yet revie wed by provider) Interpretation: Performing Lab: Notes/Report: [id number]=[facility]Site zzzMRI Outside CD (Not yet r eviewed by provider) Interpretation: Performing Lab: Notes/Report: [id number]=iSite Reason For Referral Reason low back pain hip pa in Diagnosis 1 Low back pain (M54.5 0) Diagnosis 2 Hip pain (M25.559) Referring Provider First Name Gretchen Referring Provider Last Name KhaiREGINO Referring Provider Speciality Family Med icine Referred Organization [facility] [place] Referred Provider Quinn Starkey Referred Address [address],[place], [place],[address],[place] Referred Provider Specialty Neurosurgery Referral Priority Routine Reason MRI of cervical spin e in [place]. Diagnosis 1 Cervical spinal sten osis (M48.02) Referral Organization [facility] [place] Referring Provider First Name Zahraa Referring Provider Last Name Barrett Referring Provider Speciality Neurosurge ry Referral Priority Routine Reason +FOBT COLON Diagnosis 1 Blood in stool (K92. 1) Referring Provider First Name Wade ardon Referring Provider Last Name [place] Referring Provider [facility] Affairs Referred Organization [facility] Referred Provider Jw Serrano Referred Address [address] [facility] [place],[address] Referred Provider Specialty Gastroentero logy Referral Priority Routine Reason cervicalgia Diagnosis 1 Cervicalgia (M54.2) Referring Provider First Name Gretchen Referring Provider Last Name [facility] Referring Provider [employer] leslie Referred Organization [facility] [place] Referred Provider Quinn Starkey Referred Address [address],[place],[address],[place] Referred Provider Specialty Neurosurgery Referral Priority Routine Reason cervicalgia Diagnosis 1 Cervicalgia (M54.2) Referring Provider First Name Gretchen Referring Provider Last Name [facility] Referring Provider [employer] leslie Referred Organization [facility] [place] Referred Provider Quinn Starkey Referred Address [address],[place],[address],[place] Referred Provider Specialty Neurosurgery Referral Priority Routine Medications Medication SIG (Take, Route, Frequency, Duration) Notes Start Date End Date Status Allopurinol 300 MG Oral Tablet ORAL *Reorder from [facility] for eRx and Interaction Alerts* 05/23/2018 Not-Taking Amlodipine 2.5 MG Oral Tablet ORAL [facility]* 05/23/2018 Not-Taking Aspirin 81 81 MG Tablet Delayed Release Oral 05/23/2018 Not-Taking atorvastatin 20 MG Oral Tablet ORAL *[facility]* 05/23/2018 Not-Taking Allopurinol 100 MG Tablet 1 tablet Orally Once a day Active Carvedilol 6.25 MG Oral Tablet ORAL *Reorder from [facility] for eRx and Interaction Alerts* 05/23/2018 Not-Taking amLODIPine Besylate 10 MG Tablet 1 tablet Orally Once a day Active cholecalciferol 0.025 MG Oral Tablet ORAL *Reorder from [facility] for eRx and Interaction Alerts* 05/23/2018 Not-Taking Aspirin 81 MG Tablet Chewable 1 tablet Orally Once a day Active Atorvastatin Calcium 40 MG Tablet 1 tablet Orally Once a day Active Senna-Docusate Sodium 8.6-50 MG Tablet 2 tablet as needed Orally Once a day Active Vitamin D 25 MCG (1000 UT) Tablet 1 tablet Orally Once a day Active 14 ACTUAT mometasone furoate 0.22 MG/ACTUAT Dry Powder Inhaler INTRAPULMONARY *[facility] for eRx and Interaction Alerts* 05/23/2018 Not-Taking 3 ML insulin isophane, human 100 UNT/ML Pen Injector *[facility] and Interaction Alerts* 05/23/2018 Not-Taking Folic Acid 1 MG Tablet 1 tablet Orally Once a day Active Lactobacillus Active Metoclopramide HCl 10 MG Tablet 1 tab Orally once; Duration: 1 days 02/26/2024 Active [place]lake 3 1000 MG Capsule 1 capsule Orally 1 x a day Active Ozempic (0.25 or 0.5 MG/DOSE) 2 MG/3ML Solution Pen-injector as directed Subcutaneous Active Pantoprazole Sodium 40 MG Tablet Delayed Release Oral 05/23/2018 Active predniSONE 5 MG Tablet Delayed Release 1 tablet Orally Once a day Active Furosemide 80 MG Oral Tablet ORAL *Reorder from [facility] for eRx and Interaction Alerts* 05/23/2018 Not-Taking Lisinopril 10 MG Tablet Oral 05/23/2018 Not-Taking Bumetanide 2 MG Tablet 1 tablet Orally Once a day Active Pregabalin 75 MG Oral Capsule ORAL *Reorder from [facility] for eRx and Interaction Alerts* 05/23/2018 Not-Taking Calcitriol 0.25 MCG Capsule 1 capsule Orally Three times a Week Active sennosides, GROUP HOME 8.6 MG Oral Tablet ORAL *Reorder from [facility] for eRx and Interaction Alerts* 05/23/2018 Not-Taking Ferrous Sulfate 325 (65 Fe) MG Tablet 1 tablet Orally Three times a Week Active vitamin B12 1 MG/ML Injectable Solution *Reorder from [facility] for eRx and Interaction Alerts* 05/23/2018 Not-Taking Social History Tobacco Use: Social History Observation Description Date Details (start date - stop date) Never Smoker NA - NA Social History Tobacco Use: Social Info Question Answer Notes Tobacco Control (Standard) Tobacco use: Nonsmoker Additional Details Category Social Info Options Details Migrated Social History Migrated Social History History of tobacco use : , Smoking Status : Never smoked , Smoking Status : Former smoker Problems Problem Type SNOMED Code ICD Code Onset Dates Problem Status W/U Status Risk Notes Problem Cervicalgia (30997602) Cervicalgia (M54.2) Active confirmed Problem Cervical radiculopathy (07052053) Cervical radiculopathy (M54.12) Active confirmed Problem Lumbar radiculopathy (477231986) Lumbar radiculopathy (M54.16) Active confirmed Problem Cervical myelopathy (310050958) Cervical myelopathy (G95.9) Active confirmed Problem Lumbar spondylosis (675097256) Lumbar spondylosis (M47.816) Active confirmed Problem Cervical spondylosis (456387630) Cervical spondylosis (M47.812) Active confirmed Problem Cervical spinal stenosis (47962502) Cervical spinal stenosis (M48.02) Active confirmed Problem Skin sensation disturbance (98430103) Numbness of both lower extremities (R20.0) Active confirmed Problem Deformity of cervical vertebra (058182347) 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) Active confirmed Problem Lumbar spinal stenosis (21448700) Lumbar stenosis (M48.061) Active confirmed Problem Neuropathic pain of both legs (G57.93) Active confirmed Vital Signs Heart Rate 83 /min 11/04/2024 Temperature 97.8 degrees Fahrenheit 11/04/2024 Respiratory Rate 20 /min 11/04/2024 Oximetry 95 % 11/04/2024 Blood pressure diastolic 62 mm Hg 11/04/2024 Height-cm 175.26 cm 11/04/2024 Weight-kg 99.79 kg 11/04/2024 Height 69 in 11/04/2024 Blood pressure systolic 118 mm Hg 11/04/2024 Weight 220 lbs 11/04/2024 BMI 32.48 kg/m2 11/04/2024 Encounters Encounter Location Date Provider Diagnosis [facility] [address] [place] [address] 02/26/2024 Erin Lagos Fecal occult blood test positive R19.5 [facility] [place] [address] [place] [address] 03/04/2024 Zahraa Hyde Lumbar spondylosis M47.816 ; Cervical spinal stenosis M48.02 and Lumbar stenosis M48.061 [facility] [place] [address] [place] [address] 04/08/2024 Zahraa Hyde Lumbar spondylosis M47.816 ; Cervical spinal stenosis M48.02 ; Lumbar stenosis M48.061 ; Cervical spondylosis M47.812 and Cervical osteophyte M25.78 [facility] [place] [address] [place] [place] [address] 05/06/2024 Zahraa Hyde Lumbar spondylosis M47.816 ; Cervical spinal stenosis M48.02 ; Cervical spondylosis M47.812 and Cervical myelopathy G95.9 [facility] [place] [address] [place] [place] [address] 11/04/2024 Zahraa Hyde Cervical spinal stenosis M48.02 ; Cervical spondylosis M47.812 ; Cervical myelopathy G95.9 and Lumbar spondylosis M47.816 [facility] [address] [place] [address] 02/27/2024 Erin Laogs [facility] [address] [place] [address] 03/05/2024 [facility] [address] [place] [address] 03/07/2024 [facility] [address] [place] [address] 03/19/2024 Zahraa Hyde Cervical spinal stenosis M48.02 [facility] [address] [place] [address] 04/09/2024 Zahraa Hyde [facility] [place] [address] [place] [address] 04/28/2024 Zahraa Hyde Cervical radiculopathy M54.12 Assessments Encounter Date Diagnosis (ICD Code) Assessment Notes Treatment Notes Treatment Clinical Notes Section Notes 02/26/2024 Fecal occult blood test positive (ICD-10 - R19.5) The patient has a prerequisite risk factors for development of colon cancer. I have discussed the options of diagnostic testing with their advantages and disadvantages. I have recommended diagnostic colonoscopy with possible biopsy and polypectomy. Risks and Benefits: The benefits, risks, and complications were presented to pt. The patient is aware of the risk of bleeding, perforation, infection, and anesthetic complications related to colonoscopy. The patient is aware that although colonoscopy is an accurate procedure, it does have some limitations. As a result, some lesions, including cancer may be missed by colonoscopy. Ample time was given to answer all questions. Instructions given for the bowel prep. Follow up will be determined after the colonoscopy. Refer back to PCP. Mr Pena is scheduling a colonoscopy with Dr Serrano. Dr Serrano will make treatment and follow up recommendation s. 03/04/2024 Lumbar spondylosis (ICD-10 - M47.816) obtain MRI of the cervical spine for further evaluation given increased symptoms. He has cervical stenosis as well as the spontaneous hematoma that occured after surgery. f/u after this has been done. 03/04/2024 Cervical spinal stenosis (ICD-10 - M48.02) obtain MRI of the cervical spine for further evaluation given increased symptoms. He has cervical stenosis as well as the spontaneous hematoma that occured after surgery. f/u after this has been done. 03/19/2024 Cervical spinal stenosis (ICD-10 - M48.02) 04/08/2024 Lumbar spondylosis (ICD-10 - M47.816) obtain MRI of the cervical spine for further evaluation given increased symptoms. He has cervical stenosis as well as the spontaneous hematoma that occured after surgery. f/u after this has been done.c 04/08/2024 Cervical spinal stenosis (ICD-10 - M48.02) obtain MRI of the cervical spine for further evaluation given increased symptoms. He has cervical stenosis as well as the spontaneous hematoma that occured after surgery. f/u after this has been done.c 04/28/2024 Cervical radiculopathy (ICD-10 - M54.12) 05/06/2024 Lumbar spondylosis (ICD-10 - M47.816) 05/06/2024 Cervical spinal stenosis (ICD-10 - M48.02) 11/04/2024 Cervical spinal stenosis (ICD-10 - M48.02) 11/04/2024 Cervical spondylosis (ICD-10 - M47.812) 11/04/2024 Cervical myelopathy (ICD-10 - G95.9) MRI was reviewed and discussed with dr. starkey. recommended c3-5 PCF I have again discussed with the patient the imaging findings. We discussed that he has severe cervical stenosis. We discussed risks associated with surgery and also with not doing surgery (including risk of SCI with any fall/whiplash injury). Patient and family agree to proceed with surgery. We will need cardiac clearance from Dr. Matthews. I have discussed with the patient that he will likely need/benefit from some sort of rehab post operatively. Daughter is also looking into getting him an apartment closer to her and that is one level as currently he does have stairs at his house. 05/06/2024 Cervical spondylosis (ICD-10 - M47.812) 04/08/2024 Lumbar stenosis (ICD-10 - M48.061) obtain MRI of the cervical spine for further evaluation given increased symptoms. He has cervical stenosis as well as the spontaneous hematoma that occured after surgery. f/u after this has been done.c 03/04/2024 Lumbar stenosis (ICD-10 - M48.061) obtain MRI of the cervical spine for further evaluation given increased symptoms. He has cervical stenosis as well as the spontaneous hematoma that occured after surgery. f/u after this has been done. 04/08/2024 Cervical spondylosis (ICD-10 - M47.812) obtain MRI of the cervical spine for further evaluation given increased symptoms. He has cervical stenosis as well as the spontaneous hematoma that occured after surgery. f/u after this has been done.c 05/06/2024 Cervical myelopathy (ICD-10 - G95.9) MRI was reviewed and discussed with dr. starkey. recommended c3-5 PCF I have discussed with the patient the imaging findings. We discussed that he has severe cervical stenosis. We discussed risks associated with surgery and also with not doing surgery (including risk of SCI with any fall/whiplash injury). At this time, patient does not wish to schedule surgery. he states that he will think about it and let us know if he decides that he would like to schedule. 11/04/2024 Lumbar spondylosis (ICD-10 - M47.816) 04/08/2024 Cervical osteophyte (ICD-10 - M25.78) obtain MRI of the cervical spine for further evaluation given increased symptoms. He has cervical stenosis as well as the spontaneous hematoma that occured after surgery. f/u after this has been done.c 02/26/2024 Other Colonoscopy: Before Your Procedure material was printed, Learning About Foods That Are Good Sources of Fiber material was printed Mr Pena is scheduling a colonoscopy with Dr Serrano. Dr Serrano will make treatment and follow up recommendation s. 04/08/2024 Other c-spine xray wa s reviewed independently and discussed with dr. starkey . Obtain MRI and f/u after. obtain MRI of the cervical spine for further evaluation given increased symptoms. He has cervical stenosis as well as the spontaneous hematoma that occured after surgery. f/u after this has been done.c Plan Of Treatment Pending Test Test Name Order Date Prothrombin Time 24102 02/07/2023 Prothrombin Time 39005 02/27/2023 ABORh 28327, 03580 02/27/2023 ABORh 02422, 57173 02/07/2023 Antibody Screen 73827 02/07/2023 Antibody Screen 93054 02/27/2023 Basic Metabolic Panel (BMP) 57830 2022 Basic Metabolic Panel (BMP) 06640 2022 Basic Metabolic Panel (BMP) 62943 2022 CBC w\ Auto Diff 79825 03/06/2023 CBC w\ Auto Diff 43119 02/27/2023 CBC w\ Auto Diff 51125 02/07/2023 Partial Thromboplastin Time 27447 2022 Partial Thromboplastin Time 83942 2022 Troponin-I 34862 03/06/2023 Troponin-I 35300 03/06/2023 Chest PA/Lat-12034 02/27/2023 Chest PA/Lat-26383 02/07/2023 MRI Cervical Spine w/o Cont-59070 2023 MRI Cervical Spine w/o Cont-00851 2024 MRI Cervical Spine w/o Cont-04197 2023 MRI Cervical Spine w/o Cont-55613 2024 MRI Lumbar Spine w/o Cont-04832 01/03/20 MRI Lumbar Spine w/o Cont-65358 01/17/20 XR Outside CD 06/02/2022 XR Outside CD 11/28/2022 XR Outside CD 03/13/2024 Chest 1V 03/06/2023 Chest 1V 03/06/2023 Electrocardiogram 12 Lead Tracing-38963 02/07/2023 Glucometer WBG--23551 03/05/2023 Glucometer WBG--94231 03/05/2023 Glucometer WBG--64347 03/05/2023 Glucometer WBG--31955 03/06/2023 Glucometer WBG--00213 03/06/2023 Glucometer WBG--49214 03/06/2023 Glucometer WBG--54725 03/06/2023 Glucometer WBG--73901 03/06/2023 Glucometer WBG--56587 03/07/2023 Glucometer WBG--88579 03/07/2023 Glucometer WBG--93530 03/07/2023 Glucometer WBG--74961 03/07/2023 Glucometer WBG--03796 03/08/2023 Glucometer WBG--37021 03/08/2023 Glucometer WBG--97462 03/08/2023 Glucometer WBG--43867 03/08/2023 Glucometer WBG--13701 03/09/2023 Glucometer WBG--56903 03/09/2023 Glucometer WBG--15168 03/09/2023 zzzFluoroscopy 03/05/2023 zzzMRI Outside CD 05/05/2022 zzzMRI Outside CD 05/01/2024 Diagnostic Colonoscopy-59975 02/26/2024 Schedule Confirmation 01/16/2023 Schedule Confirmation 01/16/2023 Schedule Confirmation 01/16/2023 Schedule Confirmation 01/16/2023 Schedule Confirmation 01/23/2023 Schedule Confirmation 08/30/2023 Schedule Confirmation 08/30/2023 IH Lumbosacral Spine AP/Lat - 71692 07/2022 IH Lumbosacral Spine AP/Lat - 67350 07/2022 Insurance Providers Payer Name Payer Address Payer Phone Subscriber Number Group Number Insured Name Patient Relationship to Insured Coverage Start Date Coverage End Date [employer] [address] [place] [phone] [id number] Scott Pena Self - patient is the insured Medical (General) History Medical History History ICD Code measles chicken pox wooping cough pneumonia heart disease arthritis anemia bladder infection diabetes skin cancer hernia back trouble high blood pressure colon polyps hyperlipdemia irritable bowl syndrom kidney stones rashes colonoscopy 2021 Dr [place] polyps Surgical History Surgery Date(Month/Year) lumbar surgery 03/05/23 back surgery x 3 kidney stones removed hammer toe surgery bowel resection 8 inches of colon 1994 Hospitalization History Reason Date(Month/Year) see surgery lumbar surgery
--- NOTE | 2024-12-10 16:12 | W.ED.ABDPA2 ---
HPI - Abdominal Pain General: Chief Complaint: Abdominal Pain Stated Complaint: right under rib abd pain Time Seen by Provider: 12/10/24 16:00 History of Present Illness: 79-year-old man with a history of coronary artery disease status post CABG, hypertension, diabetes, history of cholecystectomy and hernia repair who presents the emergency room with abdominal pain. He says when it first started he had some dry heaves but never brought anything up. He is having severe pain in his right upper abdomen. He is tender to palpation there. No fevers. No altered mental status. No chest pain. Pain is sharp and intermittent. Related Data Home Medications ?Medication ?Instructions ?Recorded ?Confirmed aspirin 81 mg tablet,delayed 81 mg PO DAILY 10/12/20 11/19/24 release (Adult Low Dose Aspirin) pantoprazole 40 mg tablet,delayed 40 mg PO QAM 10/12/20 11/19/24 release carvedilol 25 mg tablet 12.5 mg PO BID 04/19/21 11/19/24 allopurinol 100 mg tablet 200 mg PO DAILY 06/17/21 11/19/24 atorvastatin 80 mg tablet (Lipitor) 40 mg PO DAILY 04/17/22 11/19/24 insulin human U-100 NPH-regulr 60 unit SUBCUT BID 04/17/22 11/19/24 70-30 mix 100 unit/mL subcutaneous susp (Novolin 70/30 U-100 Insulin) amlodipine 5 mg tablet 5 mg PO DAILY 08/14/24 11/19/24 calcitriol 0.25 mcg capsule 0.25 mcg PO DAILY 08/14/24 11/19/24 ferrous sulfate 325 mg (65 mg 325 mg PO DAILY 08/14/24 11/19/24 iron) tablet folic acid 1 mg tablet 1 mg PO DAILY 08/14/24 11/19/24 semaglutide 1 mg/dose (4 mg/3 mL) 1 mg SUBCUT Q7D 08/14/24 11/19/24 subcutaneous pen injector (Ozempic) Previous Rx's ?Medication ?Instructions ?Recorded prednisone 5 mg tablet 5 mg PO DAILY #20 tabs 10/14/21 diabetic shoes with 3 inserts #1 ea 11/04/24 Allergies Allergy/AdvReac Type Severity Reaction Status Date / Time sulfamethoxazole (From Allergy Mild Rash Verified 12/10/24 16:04 Bactrim) trimethoprim (From Bactrim) Allergy Mild Rash Verified 12/10/24 16:04 niacin Allergy Unknown Verified 12/10/24 16:04 Review of Systems Narrative: Constitutional symptoms: Negative except as documented in HPI. Skin symptoms: Negative except as documented in HPI. Eye symptoms: Negative except as documented in HPI. ENMT symptoms: Negative except as documented in HPI. Respiratory symptoms: Negative except as documented in HPI. Cardiovascular symptoms: Negative except as documented in HPI. Gastrointestinal symptoms: Negative except as documented in HPI. Genitourinary symptoms: Negative except as documented in HPI. Musculoskeletal symptoms: Negative except as documented in HPI. Neurologic symptoms: Negative except as documented in HPI. Psychiatric symptoms: Negative except as documented in HPI. Endocrine symptoms: Negative except as documented in HPI. PFSH ED PFSH: Medical History (Updated 12/10/24 @ 19:55 by Jamila Gray MD) Lower back pain Psoriasis Controlled diabetes mellitus with diabetic nephropathy Hypertension Hyperlipidemia CAD (coronary artery disease) Aortic regurgitation Stage 3 chronic kidney disease, unspecified whether stage 3a or 3b CKD Aortic cusp regurgitation Diverticulosis Male circumcision Gout, unspecified Surgical History Hx of neck surgery removal of mass Hx of cholecystectomy Hx of rotator cuff surgery Right Hx of CABG History of partial colectomy History of bilateral knee replacement History of back surgery History of colonoscopy (07/15/21) History of total left knee replacement had a partial prior to total Family History Grandmother Diabetes Stroke Hypertension Mother Diabetes Hypertension Father Heart attack Denies family history of Rheumatoid arthritis Lupus Clotting disorder Hyperlipidemia Anesthesia complication Bleeding disorder Cancer Social History Smoking and tobacco/nicotine status: never used tobacco/nicotine Alcohol intake: never Physical Exam Narrative: EXAM NARRATIVE: General: Alert, no acute distress. Skin: Warm, dry. Head: Normocephalic, atraumatic. Neck: Supple, trachea midline. Eye: Extraocular movements are intact. Ears, nose, mouth and throat: mucosa moist. Cardiovascular: Regular, Normal peripheral perfusion. Respiratory: Lungs are clear to auscultation, respirations are non-labored, breath sounds are equal, Symmetrical chest wall expansion. Gastrointestinal: Soft, moderate right upper quadrant pain, Non distended Musculoskeletal: Normal ROM, no deformity. Neurological: Alert and oriented, No focal neurological deficit observed. Psychiatric: Cooperative, appropriate mood & affect. Course Vital Signs: Vital signs: Vital Signs Temperature 97.6 F 12/10/24 15:59 Pulse Rate 79 12/10/24 19:30 Respiratory Rate 18 12/10/24 15:59 Blood Pressure 146/85 12/10/24 19:30 Pulse Oximetry 98 12/10/24 19:30 Oxygen Delivery Me thod Room Air 12/10/24 19:30 MDM - Abdominal Pain Medical Decision Making Differential diagnosis for patient presenting with right upper quadrant abdominal pain including but not limited to and based on the above HPI, review of systems and physical exam: Cholelithiasis or cholecystitis. Hepatitis. Diverticulitis. Constipation. Ureterolithiasis. Urinary tract infection. Appendicitis. colitis. small bowel obstruction. crohn's flare. pancreatitis. gastritis. peptic ulcer. Aortic disection. Workup including imaging and lab work replaced based on the above differential, history and exam to evaluate differential diagnosis Lab Review: Laboratory results were reviewed and interpreted by myself the emergency room physician. Lab work is unremarkable. No leukocytosis. No anemia. BUN/creatinine are stable at or below his baseline at 34 and 2.5. No evidence of urinary tract infection. Flu COVID and RSV are negative. CT of the abdomen pelvis: No acute findings. Multiple chronic findings. This was reviewed and interpreted by myself the emergency room physician. I also reviewed the radiology report. I reviewed the patient's medical record. Reexamination: Patient remained stable. No increased work of breathing. No altered mental status. No focal motor deficits. Assessment and plan: Abdominal pain - Discharged home - Discussed plan with patient. Answered any questions. - Evaluation and treatment of this problem were appropriate in the emergency setting. Lab Data 12/10/24 16:30 12/10/24 16:30 Labs/Radiology: Radiology Impressions Abdomen/Pelvis CT 12/10/24 18:02 IMPRESSION: Abdominal pain is difficult to explain. No evidence of urinary tract obstruction or calculus. Status post cholecystectomy. No ayesha evidence of pancreatitis or pancreatic mass. Normal spleen size. Punctate calcification involving the left lobe and right lobe of the liver, unchanged. No definitive liver mass. Extensive arterial vascular calcification including coronary artery calcification. No evidence of small bowel obstruction or constipation. Sigmoid colon diverticulosis without diverticulitis. Decompressed urinary bladder. 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 Solid bony fusion of bilateral SI joints. Status post posterior L2, L3, L4 lumbar spine fusion surgery. No definitive solid bony fusion at L3-L4 level. Solid bony fusion of L1 through L3 and L4 through S1 vertebra. Status post L3, L2 laminectomy. No evidence of hardware fracture or loosening. Fat containing left inguinal hernia without bowel involvement. Laboratory Results WBC 10.65 10^3/uL (3.29-11.43) 12/10/24 16:30 RBC 3.40 10^6/uL (3.85-5.65) L 12/10/24 16:30 Hgb 10.80 g/dL (11.27-16.99) L 12/10/24 16:30 Hct 31.5 % (37-53) L 12/10/24 16:30 MCV 92.6 fl (82-101) 12/10/24 16:30 MCH 31.8 pg (27-33) 12/10/24 16:30 MCHC 34.3 g/dL (30-55) 12/10/24 16:30 RDW 14.5 % (12.1-15.1) 12/10/24 16:30 Plt Count 164 10^3/cmm (157-399) 12/10/24 16:30 MPV 10.0 fL (7.4-10.4) 12/10/24 16:30 Neut % (Auto) 74.8 % 12/10/24 16:30 Lymph % (Auto) 12.7 % 12/10/24 16:30 [place] % (Auto) 8.7 % 12/10/24 16:30 Eos % (Auto) 2.4 % 12/10/24 16:30 Baso % (Auto) 0.6 % 12/10/24 16:30 Neut # (Auto) 7.96 10^3/uL (1.8-7.7) H 12/10/24 16:30 Lymph # (Auto) 1.4 10^3/uL (0.8-4.8) 12/10/24 16:30 [place] # (Auto) 0.9 10^3/uL (0.2-0.9) 12/10/24 16:30 Eos # (Auto) 0.3 10^3/uL (0.0-0.8) 12/10/24 16:30 Baso # (Auto) 0.1 10^3/uL (0.0-0.1) 12/10/24 16:30 Nucleated RBC % (auto) 0 % 12/10/24 16:30 Nucleated RBCs # 0.0 /100WBC 12/10/24 16:30 Sodium 139 mmol/L (136-145) 12/10/24 16:30 Potassium 3.7 mmol/L (3.5-5.1) 12/10/24 16:30 Chloride 99 mmol/L (98-107) 12/10/24 16:30 Carbon Dioxide 23 mmol/L (22-29) 12/10/24 16:30 Anion Gap 20.7 (5-19) H 12/10/24 16:30 BUN 34 mg/dL (8-23) H 12/10/24 16:30 Creatinine 2.5 mg/dL (0.7-1.2) H 12/10/24 16:30 GFR Calculation Not Reportable 12/10/24 16:30 Glucose 124 mg/dL (65-115) H 12/10/24 16:30 Calculated Osmolality 297 mOsm/kg (285-295) H 12/10/24 16:30 Lactic Acid 2.5 mmol/L (0.5-2.2) H 12/10/24 16:30 Lactic Acid (Sepsis) 1.4 mmol/L (0.5-2.2) 12/10/24 19:20 Calcium 8.9 mg/dL (8.5-10.5) 12/10/24 16:30 Total Bilirubin 0.8 mg/dL (0.15-1.2) 12/10/24 16:30 AST 17 U/L (0-40) 12/10/24 16:30 ALT 16 U/L (0-41) 12/10/24 16:30 Alkaline Phosphatase 126 U/L (40-130) 12/10/24 16:30 C-Reactive Protein 13.2 mg/L (0.0-4.9) H 12/10/24 16:30 Total Protein 7.2 g/dL (6.6-8.7) 12/10/24 16:30 Albumin 3.8 g/dL (3.5-5.2) 12/10/24 16:30 Globulin 3.4 g/dL (1.3-4.6) 12/10/24 16:30 Lipase 63 U/L (13-60) H 12/10/24 16:30 Urine Color [place] (Yellow) A 12/10/24 16:55 Urine Appearance Clear (CLEAR) 12/10/24 16:55 Urine pH 6.5 (5-7) 12/10/24 16:55 Ur Specific [place] 1.011 (1.005-1.030) 12/10/24 16:55 Urine Protein 2+ (Negative) A 12/10/24 16:55 Urine Glucose (UA) Negative (Normal) 12/10/24 16:55 Urine Ketones Negative (Negative) 12/10/24 16:55 Urine Blood Negative (Negative) 12/10/24 16:55 Urine Nitrate Negative (Negative) 12/10/24 16:55 Urine Bilirubin Negative (Negative) 12/10/24 16:55 Urine Urobilinogen 0.2 mg/dL (Negative) 12/10/24 16:55 Ur Leukocyte Esterase Negative (Negative) 12/10/24 16:55 Urine RBC 0-2 /hpf (0-2) 12/10/24 16:55 Urine WBC 0-5 /hpf (0-5) 12/10/24 16:55 Ur Squamous Epith Cells 0-5 /hpf (0-5) 12/10/24 16:55 Amorphous Sediment Not Reportable 12/10/24 16:55 Urine Bacteria None seen /hpf (NONE) 12/10/24 16:55 Hyaline Casts 0.40 /lpf 12/10/24 16:55 Influenza A (PCR) Negative (Negative) 12/10/24 16:23 Influenza Type B (PCR) Negative (Negative) 12/10/24 16:23 RSV (PCR) Negative (Negative) 12/10/24 16:23 SARS-CoV-2 (PCR) Negative (Negative) 12/10/24 16:23 All radiology interpretation(s) finalized by discharge Discharge Plan Discharge Patient Disposition: Home Clinical Impression: Abdominal pain Condition: Stable Prescriptions: No Action aspirin [Adult Low Dose Aspirin] 81 mg tablet,delayed release (DR/EC) 81 mg PO DAILY pantoprazole 40 mg tablet,delayed release (DR/EC) 40 mg PO QAM carvedilol 25 mg tablet 12.5 mg PO BID Rx Instructions: must administer with a meal/food allopurinol 100 mg tablet 200 mg PO DAILY (DME) diabetic shoes with 3 inserts See Rx Instructions .Route .MEDSUPPLY Qty: 1 0RF Rx Instructions: As directed to the shoe jermaine prednisone 5 mg tablet 5 mg PO DAILY Qty: 20 0RF atorvastatin [Lipitor] 80 mg Tablet 40 mg PO DAILY Novolin 70/30 U-100 Insulin 100 unit/mL (70-30) Suspension 60 unit SUBCUT BID Rx Instructions: before meals 30 mins before amlodipine 5 mg Tablet 5 mg PO DAILY ferrous sulfate 325 mg (65 mg iron) Tablet 325 mg PO DAILY folic acid 1 mg Tablet 1 mg PO DAILY calcitriol 0.25 mcg Capsule 0.25 mcg PO DAILY Ozempic 1 mg/dose (4 mg/3 mL) Pen Injector 1 mg SUBCUT Q7D Discharge Orders: Discharge ED (Routine); Ordered 12/10/24 Ordered By: Jamila Gray Referrals: Gretchen Ridley MD [Primary Care Provider, Family Practice] Discharge Diet: Usual diet Discharge Activity: Increase activity as tolerated Patient Instructions: Abdominal Pain (ED), Opioid Safety, Pain Management, Patient Portal & Mason Instructions Activity Restrictions/Additional Instructions: Thank you for choosing [facility] for your healthcare needs today. You have been screened and evaluated and felt safe for discharge. Health conditions do change or evolve sometimes and as such it is important that you follow up with your Primary Doctor to be re checked, 3-5 days is a general good time frame for follow up. 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
[2024-12-10 17:19] LABS: Respiratory Syncytial Virus Ce NEGATIVE (Negative); SARS-CoV-2 PCR NEGATIVE (Negative)
[2024-12-10 17:21] LABS: Hematocrit 31.5 % (37-53); Hemoglobin 10.80 g/dL (11.27-16.99); Mean Corpuscular HGB Conc 34.3 g/dL (30-55); Mean Corpuscular Hemoglobin 31.8 pg (27-33); Mean Corpuscular Volume 92.6 fl (82-101); Nucleated Red Blood Cells % 0 %; Platelet Count 164 10^3/cmm (157-399); Red Blood Count 3.40 10^6/uL (3.85-5.65); White Blood Count 10.65 10^3/uL (3.29-11.43)
[2024-12-10 17:23] LABS: Glucose Urine UA Negative (Normal); Nitrate Urine Negative (Negative); Specific Gravity, Urine 1.011 (1.005-1.030)
[2024-12-10 17:58] LABS: Alanine Aminotransferase 16 U/L (0-41); Albumin Level 3.8 g/dL (3.5-5.2); Alkaline Phosphatase 126 U/L (40-130); Anion Gap 20.7 (5-19); Aspartate Amino Transferase 17 U/L (0-40); Blood Urea Nitrogen 34 mg/dL (8-23); Calcium 8.9 mg/dL (8.5-10.5); Carbon Dioxide 23 mmol/L (22-29); Chloride 99 mmol/L (98-107); Creatinine Clr Calc Pharmacy 29.8443; Globulin 3.4 g/dL (1.3-4.6); Glucose 124 mg/dL (65-115); Lipase 63 U/L (13-60); Osmolality Calculated 297 mOsm/kg (285-295); Potassium 3.7 mmol/L (3.5-5.1); Sodium 139 mmol/L (136-145); Total Protein 7.2 g/dL (6.6-8.7)
[2024-12-10 18:01] LABS: Lactic Sepsis W/Reflex 2.5 mmol/L (0.5-2.2)
--- NOTE | 2024-12-10 18:01 | PC.NURSE ---
straight cath done for pt ua, 16 uzbek alfaro, sterile gloves, sterile lubrication, and iodine swabsx3 used.
--- NOTE | 2024-12-10 18:02 | CTR_ITS ---
PROCEDURE INFORMATION: Exam: CT Abdomen And Pelvis Without Contrast Exam date and time: 12/10/2024 6:29 PM Age: 79 years old Clinical indication: Abdominal pain; Generalized; Prior surgery; Surgery date: 6+ months; Surgery type: Gb, colon, hernia, lspine TECHNIQUE: Imaging protocol: Computed tomography of the abdomen and pelvis without contrast. 3 image(s) are submitted. Radiation optimization: All CT scans at this facility use at least one of these dose optimization techniques: automated exposure control; mA and/or kV adjustment per patient size (includes targeted exams where dose is matched to clinical indication); or iterative reconstruction. COMPARISON: CT abdomen pelvis wo con [id number] 08/16/2021 10:11 AM RADIATION DOSE METRICS: Total DLP (mGy-cm): 955.63 FINDINGS: Liver: See Intraperitoneal space finding. Gallbladder and biliary ducts: See Intraperitoneal space finding. Pancreas: See Intraperitoneal space finding. Spleen: See Intraperitoneal space finding. Adrenal glands: Normal. No mass. Kidneys and ureters: See Intraperitoneal space finding. Stomach and bowel: See Intraperitoneal space finding. Appendix: No evidence of appendicitis. Intraperitoneal space: Abdominal pain is difficult to explain. No evidence of urinary tract obstruction or calculus. Status post cholecystectomy. No ayesha evidence of pancreatitis or pancreatic mass. Normal spleen size. Punctate calcification involving the left lobe and right lobe of the liver, unchanged. No definitive liver mass. Extensive arterial vascular calcification including coronary artery calcification. No evidence of small bowel obstruction or constipation. Sigmoid colon diverticulosis without diverticulitis. Decompressed urinary bladder. 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 Solid bony fusion of bilateral SI joints. Status post posterior L2, L3, L4 lumbar spine fusion surgery. No definitive solid bony fusion at L3-L4 level. Solid bony fusion of L1 through L3 and L4 through S1 vertebra. Status post L3, L2 laminectomy. No evidence of hardware fracture or loosening. Fat containing left inguinal hernia without bowel involvement. Vasculature: Unremarkable. No abdominal aortic aneurysm. Lymph nodes: Unremarkable. No enlarged lymph nodes. Urinary bladder: See Intraperitoneal space finding. Reproductive: Unremarkable as visualized. Bones/joints: See Intraperitoneal space finding. Soft tissues: See Intraperitoneal space finding. CT/CT abdomen pelvis wo con [id number] IMPRESSION: Abdominal pain is difficult to explain. No evidence of urinary tract obstruction or calculus. Status post cholecystectomy. No ayesha evidence of pancreatitis or pancreatic mass. Normal spleen size. Punctate calcification involving the left lobe and right lobe of the liver, unchanged. No definitive liver mass. Extensive arterial vascular calcification including coronary artery calcification. No evidence of small bowel obstruction or constipation. Sigmoid colon diverticulosis without diverticulitis. Decompressed urinary bladder. 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 Solid bony fusion of bilateral SI joints. Status post posterior L2, L3, L4 lumbar spine fusion surgery. No definitive solid bony fusion at L3-L4 level. Solid bony fusion of L1 through L3 and L4 through S1 vertebra. Status post L3, L2 laminectomy. No evidence of hardware fracture or loosening. Fat containing left inguinal hernia without bowel involvement.
[2024-12-10 18:55] LABS: Reflex Lactate Order REFLEX LACTIC ORDERD
[2024-12-10 19:46] LABS: Lactic Acid level (Lactate) 1.4 mmol/L (0.5-2.2)
[2024-12-11 18:29] LABS: Staphylococcus epidermidis Detected (NOT DETECT)
== END 2024-12-10 20:11 | disposition home or self-care (01) ==
PROVIDERS: Emergency Provider Emergency Medicine; PCP Family Medicine
DX: R10.9 Unspecified abdominal pain (principal); Z11.52 Encounter for screening for COVID-19; Z79.82 Long term (current) use of aspirin; E78.5 Hyperlipidemia, unspecified; I25.10 Atherosclerotic heart disease of native coronary artery without angina pectoris; I12.9 Hypertensive chronic kidney disease with stage 1 through stage 4 chronic kidney disease, or unspecified chronic kidney disease; N18.9 Chronic kidney disease, unspecified
CPT/HCPCS: 74176; 80053; 81001; 83605; 83690; 85025; 86140; 87040; 87150; 87186; 87205; 87637; 99284

== ENCOUNTER → 2025-02-10 12:38 | Outpatient (BNVA) | payer OTHER, SELFPAY | PROVIDERS: PCP Family Medicine; Visit Provider Podiatrist Foot & Ankle Surgery | DX: E11.42 Type 2 diabetes mellitus with diabetic polyneuropathy (principal); L60.3 Nail dystrophy; E11.8 Type 2 diabetes mellitus with unspecified complications; N18.30 Chronic kidney disease, stage 3 unspecified; M20.41 Other hammer toe(s) (acquired), right foot; M20.42 Other hammer toe(s) (acquired), left foot; M21.41 Flat foot [pes planus] (acquired), right foot; M21.42 Flat foot [pes planus] (acquired), left foot; Z79.4 Long term (current) use of insulin | CPT/HCPCS: 11721 ==